=== PATIENT | female | born 1985 | race Caucasian/White ===

== ENCOUNTER 2022-02-27 22:44 | Outpatient (CLI) | payer MEDICAID, SELFPAY | END 2022-02-27 22:45 | disposition home or self-care (01) | LOC: AMB 03-10 14:05 | PROVIDERS: PCP Family Medicine; Visit Provider Family Medicine | DX: N89.8 Other specified noninflammatory disorders of vagina (principal) | CPT/HCPCS: A0425; A0429 ==

== ENCOUNTER 2022-02-27 22:58 | Emergency (ER) | payer MEDICAID, SELFPAY ==
[2022-02-27 23:30] VITALS: BP 147/90; PULSE 87; RESP 18; TEMP 36.6; O2SAT 99; BMI 46.0
[2022-02-28 00:09] VITALS: BP 121/80; TEMP 36.9
--- NOTE | 2022-02-28 00:34 | ED_ITS ---
HPI - General Adult General Chief complaint: Skin/Abscess/Foreign Body Stated complaint: Vaginal Pain Time Seen by Provider: 02/28/22 00:16 Source: patient Mode of arrival: ambulatory Limitations: no limitations History of Present Illness HPI narrative: 37-year-old female presents with a 2 day history of a right labial genital pain. She does have a history of hidradenitis, states that this pain is not similar. She reports that she relocated to our area from [place], does not yet have a primary care provider. Has not tried any home treatment. She had previously been treated for her hidradenitis with Humira, had we stop due to liver abnormality she reports. She denies any prior history of STDs, no new sexual partners. Denies a history of genital herpes. She is concerned that the lesion could be infected. Of note, she called the ambulance for this. When I question why this was done, she states that she could find the emergency department, her GPS was taking her to the wrong location so she does called 911. She has not tried taking any Tylenol, ibuprofen, doing any warm compresses or any other similar treatment to help with her symptoms. She denies any unusual vaginal discharge, no urinary symptoms, no chance of . Past medical history is notable for the hidradenitis. Denies any recent surgical history. No long-term medications, no allergies. Socially no new sexual partners Related Data Previous Rx's Medication Instructions Recorded amoxicillin 875 mg-potassium 1 tab PO BID #19 tabs 02/28/22 clavulanate 125 mg tablet ibuprofen 600 mg tablet 600 mg PO Q6H PRN pain #30 tabs 02/28/22 Allergies Allergy/AdvReac Type Severity Reaction Status Date / Time Sulfa (Sulfonamide Allergy Mild Hives Verified 02/27/22 23:35 Antibiotics) PFSH PFSH Medical History Anxiety Cervical dysplasia Chronic ankle pain Depression Developmental disorder Herpes genitalis Hypertriglyceridemia Insomnia Obesity (BMI 30-39.9) PTSD (post-traumatic stress disorder) Subclinical hypothyroidism Surgical History H/O tubal ligation Hx of cholecystectomy Exam Const: Vital Signs, click to edit/add: Vital Signs - 24 hr 02/27/22 23:30 02/28/22 00:09 Temperature 97.8 F 98.4 F Pulse Rate [Right Pulse Oximeter] 87 Respiratory Rate 18 Blood Pressure [Le ft Upper Arm] 147/90 H 121/80 Pulse Oximetry 99 Oxygen Delivery Me thod Room Air Documenting provider has reviewed patient's vital signs: yes Common normals: no apparent distress Other: Detecting that she may have some developmental delay. Insight seems fair at best HENMT: Common normals: normocephalic Head and scalp: normocephalic Mouth: oral and palatal mucosa normal Throat: posterior oropharynx normal Resp: Common normals: normal respiratory effort Effort & inspection: able to speak in complete sentences GI: Other: Obese but soft, nontender : Other: External genitalia with scarring consistent with hidradenitis. Area of mild swelling, tenderness and redness at the right superior labia majora no abrasion, nonfluctuant, subcutaneous. Area in question is about 2 x 3 cm. Normal vaginal opening, urethral meatus and clitoris. Neuro: Speech: speech normal Motor exam: no tremor noted and no movement abnormalities noted Psych: Insight: fair Judgement: fair Skin: Common normals: no rashes or lesions noted General skin exam: no rash es or lesions noted Course Vital Signs Vital signs: Initial Vital Signs Temperature 97.8 F 02/27/22 23:30 Temperature Source Temporal Artery Scan 02/27/22 23:30 Pulse Rate 87 02/27/22 23:30 Respiratory Rate 18 02/27/22 23:30 Blood Pressure 147/90 H 02/27/22 23:30 Blood Pressure Mean 109 02/27/22 23:30 Blood Pressure Position Semi-Fowlers 02/27/22 23:30 Pulse Oximetry 99 02/27/22 23:30 Oxygen Delivery Method 02/27/22 23:30 Vital Signs Temperature 97.8 F 02/27/22 23:30 Pulse Rate 87 02/27/22 23:30 Respiratory Rate 18 02/27/22 23:30 Blood Pressure 147/90 H 02/27/22 23:30 Pulse Oximetry 99 02/27/22 23:30 Oxygen Delivery Method 02/27/22 23:30 Temperature 98.4 F 02/28/22 00:09 Pulse Rate 87 02/27/22 23:30 Respiratory Rate 18 02/27/22 23:30 Blood Pressure 121/80 02/28/22 00:09 Pulse Oximetry 99 02/27/22 23:30 Oxygen Delivery Method 02/27/22 23:30 Medical Decision Making MDM Narrative Medical decision making narrative: Patient's request stronger pain medicine because she wants to go to the mall with her mother tomorrow and is worried about the pain. I let her know that if the pain is too severe maybe she should skip shopping. She says that the pain is only really bothersome when she wipes. I let her know that since she has not given Tylenol or ibuprofen adequate trial, we should start there. Counseling on anti biotic management, will need to follow-up with gynecology to ensure resolution. All questions answered, she verbalizes understanding and agreement. First dose of Augmentin and ibuprofen will be given here in the ED. Subsequent doses sent to her pharmacy Discharge Plan Discharge Clinical Impression: Labial pain Patient Disposition: Home, Self-Care Condition: Stable Additional Instructions: You have an inflamed gland on your right labia. It does seem mildly infected. This is different than your typical hidradenitis. We have started on antibiotic for this, he will need to continue on this for the next 10 days. It is okay to take Imodium if it gives you loose stools. For pain, take ibuprofen 600 mg every 6 hours. It is still bothersome, take Tylenol 1000 mg every 6 hours. Soak in a warm bath twice daily for 20 minutes to help promote drainage. There are no signs of a sexually transmitted disease. I have placed a referral to Gynecology. They will call you to schedule this. I would like you evaluated later this week to ensure that things are improving. Unlikely to need incision and drainage. Activity Level: Activity as Tolerated Discharge Diet: Regular Prescriptions: New amoxicillin-pot clavulanate 875-125 mg tablet 1 tab PO BID Qty: 19 0RF ibuprofen 600 mg tablet 600 mg PO Q6H PRN (Reason: pain) Qty: 30 0RF Follow Up/Referrals: Irene Collins MD [Staff Physician] - 2 Days (1st available gynecology provider, recheck labial inflamed cyst) Stand Alone Forms: [facility] Info Instructions
[2022-02-28] MEDS: IBUPROFEN 200 MG TABLET 600 MG PO (00:42)
[2022-02-28] MEDS: AMOXICILLIN/CLAVULANATE 875 mg/125 mg TABLET PO (00:43)
--- OUTSIDE RECORDS SUMMARY | 2022-02-28 00:52 | XMS_ITS | Clinical Summary ---
:1985 Author Organization [employer] [place] [address] Care Team Providers Name Role Phone Emile Myers MD Unavailable [phone] Angela Garrett MD Primary Care Provider Allergies Active Allergy Reactions Severity Noted Date Comments Sulfa (Sulfonamide Antibiotics) Hives 2 Medications Medication Sig Dispensed Refills Start Date End Date Status clindamycin 1% Apply 60 g 1 02/06/2015 Disc ontinued (CLEOCIN-T) 1 % topically to 2 ( *Patient states gelIndications: affected no l onger Hidradenitis area(s) 2 taking/ Not on suppurativa times daily. sendi facility list) chlorhexidine Use daily with 236 mL 1 02/07/2015 Discontinued (HIBICLENS) 4 % showering as 2 ( *Patient states external directed. no longer liquidIndications: t aking/Not on Hidradenitis sending facility suppurativa list) naproxen 0 12/15/2014 Discontin ued (NAPROSYN) 500 mg 2 (* Patient states tablet no longer taking/Not on sending fa cility list) escitalopram Take 1/2 pill 30 tablet 2 02/20/2015 Di scontinued oxalate (LEXAPRO) a day for 1 2 (*Patient states 20 mg week and then no michael amy tabletIndications: increase to 1 taking/Not on Depression pill a day. sending facility list) traZODone Take 1 tablet 30 tablet 1 02/20/2015 Disco ntinued (DESYREL) 50 mg by mouth at 2 (* Patient states tabletIndications: bedtime. n o longer Depression taking/No t on sending fa cility list) Foot Care Products As directed. 2 Each 0 07/03/2015 02 Discontinued padsIndications: 2 (*P atient states Plantar fasciitis no longer of left foot taking/ Not on sending fa cility list) Active Problems Problem Noted Date Subclinical hypothyroidism 03/08/2021 Depression 02/20/2015 Hidradenitis suppurativa 02/10/2015 Obesity (BMI 30-39.9) 02/10/2015 Anxiety 05/25/2013 Insomnia 09/18/2012 History of cervical dysplasia 09/18/2012 Developmental disorder 09/18/2012 Overview: Formatting of this note might be differe nt from the original. 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 Herpes genitalis 04/12/2012 Hypertriglyceridemia 01/03/2012 Encounters Date Type Specialty Care Team Description 02/21/2022 Office Visit Angela Garrett Establish Rambo Larson MD 02/21/2022 Travel 02/10/2022 Telephone Antoine Garcia Results MD Shad 02/08/2022 Ancillary Procedure 02/08/2022 Travel 02/01/2022 Ancillary Procedure 02/01/2022 Office Visit Antoine Garcia Musculoskeleta l Problem MD Shad (Left ankle peter n ) 02/01/2022 Travel 12/24/2021 Emergency [place], Chronic pain of left ankle ALEXANDRA Sandy (Primary Dx) 12/24/2021 Travel 12/20/2021 Travel 12/20/2021 Nurse Triage Pcp, No Ankle Injury from Last 3 Months Immunizations Name Administration Dates Next Due COVID-19 vaccine (IGIGI 02/21/2022 30mcg/0.3mL) 12YO+ BIVALENT BOOSTER PF, MDV DT (Age < 7 years) 10/20/2008 Hepatitis B (Adult) 11/21/2000, 03/07/2000, 01/11/2000 Hepatitis B, Unspecified 11/21/2000, 03/07/2000, 01/11/2000 Human Papilloma Virus Vaccine 12/20/2011, 05/25/2011, 2010 Influenza A (H1N1), Inactivated 03/16/2009 Influenza A (H1N1), Inactivated (Age 1203/16/2009 >=3 Years) Influenza Virus, Unspecified 01/03/2014, 04/15/2013, 012, 02/16/2010, 01/05/2009, 01/09/2008 Influenza, IIV3 (Age >=3 years) 12/20/2011 Influenza, IIV4 02/21/2022, 01/18/2021 MMR 11/21/2000, 09/15/1988 Tdap 01/18/2021 Family History Medical History Relation Name Comments No Known Problems Father Heart Disease Maternal Grandfather Hypertension Maternal Grandfather Diabetes Maternal Uncle Hypertension Mother Migraines Mother Migraines Sister Relation Name Status Comments Father Maternal Grandfather Maternal Uncle Alive Mother Sister Social History Tobacco Use Types Packs/Day Years Used Date Never Smoker Smokeless Tobacco: Never Used Tobacco Cessation: Counseling Given: Yes Alcohol Use Standard Drinks/Week Comments Yes 0 (1 standard drink = 0.6 oz pure alcoho l) rarely Alcohol Habits Answer Date Recorded How often do you have a drink containing alcohol? Not asked How many drinks containing alcohol do you have on a typical Not asked day when you are drinking? How often do you have six or more drinks on one occasion? No t asked Comment: rarely 02/21/2022 Sex Assigned at Date Recorded Not on file COVID-19 Exposure Response Date Recorded In the last 10 days, have you been in contact with No / Unsu re 02/21/2022 1:56 PM RUBBER OFF someone who was confirmed or suspected to have Coronavirus/COVID-19? Obstetrics History Last Filed Vital Signs Vital Sign Reading Time Taken Comments Blood Pressure 119/82 02/21/2022 2:10 PM RUBBER OFF Pulse 95 02/21/2022 2:10 PM RUBBER OFF Temperature 36.8 ??C (98.3 ??F) 12/24/2021 11:25 AM CDT Respiratory Rate 20 12/24/2021 11:25 AM CDT Oxygen Saturation 97% 02/21/2022 2:10 PM RUBBER OFF Inhaled Oxygen Concentration - - Weight 106.1 kg (234 lb) 02/21/2022 2:10 PM RUBBER OFF Height 150.2 cm (4' 11.13) 02/21/2022 2:10 PM RUBBER OFF Body Mass Index 47.05 02/21/2022 2:10 PM RUBBER OFF Plan of Treatment Upcoming Encounters Date Type Specialty Care Team Description 03/15/2022 [place] [id number] [address] [place], [place] [address] (Wo rk) Health Maintenance Due Date Last Done Comments Hepatitis C screening for 2005 age 18-79 BMI (ht and wt on same 02/21/2023 02/21/2022, 07/03/2015, day) for age 18+ 06/01/2015 Depression screening for 02/21/2023 02/21/2022 age 12+ Pap test for age 21-65 03/08/2026 03/08/2021 (Verified in Care Everywhere or Patient Record) Tetanus booster 01/18/2031 01/18/2021 HIV for age 15-65 Addressed 04/10/2012 (Verified in [place] with the Care Everywhere or intention of not Patient Record) completing the t opic Tdap Completed 01/18/2021 COVID-19 vaccine series Completed 02/21/2022, 03/08/2021, 08/14/2020, Additional history exists Influenza for age 9-49 Completed 02/21/2022, 01/18/2021, 01/03/2014, Additional history exists Procedures Procedure Name Priority Date/Time Associated Diagnosis Comme nts MR ANKLE LEFT WO Routine 02/08/2022 4:37 PM Chronic pain of le ft Results for this RUBBER OFF ankle procedure are i n the results section. XR TIBIA AND FIBULA Routine 02/01/2022 3:19 PM Pain in left sh in Results for this 2 VIEWS LEFT RUBBER OFF procedure are i n the results section. XR ANKLE 3 VIEWS STAT 12/24/2021 1:29 PM Resul ts for this LEFT CDT procedure are i n the results section. XR ANKLE 3 VIEWS STAT 12/24/2021 12:34 PM Resu lts for this RIGHT CDT procedure are i n the results section. from Last 3 Months Results MR ANKLE LEFT WO (02/08/2022 4:37 PM RUBBER OFF) Anatomical Region Laterality Modality ANKLE L Magnetic Resonance Specimen (Source) Anatomical Collection Method Collection Time Re ceived Time Location / / Volume Laterality 02/09/2022 12:42 PM RUBBER OFF Impressions 02/09/2022 12:42 PM RUBBER OFF 1. Chronic thickening of the anterior talofibular and calcaneofibular ligaments compatible with scarring and sequelae of remote ligament sprains. 2. Lateral calcaneal bone marrow edema m ay relate to reactive marrow edema or stress change. There is no calcaneal fracture. 3. Mild edema within the sinus tarsi wit h partial effacement of sinus tarsi fat at its lateral margin. 4. Subcutaneous edema. Dictated by Sadi Dorantes MD @ 2021 12:42:48 PM (Electronically Signed) Narrative 02/09/2022 12:42 PM RUBBER OFF For Patients: ??As a result of the Cures Act, medical imaging exams and procedure report s are released immediately into your [facility] medical record. ??You may view this report before your referring provider. ??If you have questions, please contact your health care provider. HISTORY: Left ankle pain and swelling. TECHNIQUE: Noncontrast MRI of the left ankle. COMPARISON: Radiographs 12/24/2021. FINDINGS: Tendons: The posteromedial flexor tendon s are intact. The anterior extensor tendons are intact. The peroneal tendons are intact. Distal Achilles tendon is intact. - Ligaments: The anterior and posterior sy ndesmotic ligaments are intact. There is chronic thickening of the anterior talofibular ligament compatible with ligament scarring. Mild thickening of the calcane ofibular ligament also indicating ligame nt scarring. Findings compatible sequelae of remote sprain. Posterior talofibular ligament intact. Calcaneonavicular spring ligament intact. Lisfranc ligament int act. Mild edema within the sinus tarsi a s seen on sagittal STIR image #13 of series 8 with partial effacement of the fat more laterally. - Joint spaces: The ankle and subtalar art iculations are maintained. Talonavicular and calcaneocuboid articulations are maintained. Joint spaces within the midfoot and at the midfoot-forefoot junction are maintained. - Bones and soft tissues: There is bone ma rrow edema present within the lateral calcaneus which may be reactive or relate to stress change. There is no calcaneal fracture. Subcutaneous edema is present. Procedure Note Sadi Dorantes MD - 2 For Patients: As a result of the ntury Cures Act, medical imaging exams and procedure reports are released immediately into your electronic medical record. You may view this report before your referring provider. If you have questions, please contact yo health care provider. HISTORY: Left ankle pain and swelling. TECHNIQUE: Noncontrast MRI of the left ankle. COMPARISON: Radiographs 12/24/2021. FINDINGS: Tendons: The posteromedial flexor tendon s are intact. The anterior extensor tendons are intact. The peroneal tendons are intact. Distal Achilles tendon is intact. - Ligaments: The anterior and posterior sy ndesmotic ligaments are intact. There is chronic thickening of the anterior talofibular ligament compatible with ligament scarring. Mild thickening of the calcaneofibular ligament also indicating ligament scarri ng. Findings compatible sequelae of remote sprain. Posterior talofibular ligament intact. Calcaneonavicular spring ligament intact. Lisfranc ligament intact. Mild edema within the sinus tarsi as seen on sagittal STIR chelsy ge #13 of series 8 with partial effacement of the fat more laterally. - Joint spaces: The ankle and subtalar art iculations are maintained. Talonavicular and calcaneocuboid articulations are maintained. Joint spaces within the midfoot and at the midfoot-forefoot junction are maintained. - Bones and soft tissues: There is bone ma rrow edema present within the lateral calcaneus which may be reactive or relate to stress change. There is no calcaneal fracture. Subcutaneous edema is present. IMPRESSION: 1. Chronic thickening of the anterior ta lofibular and calcaneofibular ligaments compatible with scarring and sequelae of remote ligament sprains. 2. Lateral calcaneal bone marrow edema m ay relate to reactive marrow edema or stress change. There is no calcaneal fracture. 3. Mild edema within the sinus tarsi wit h partial effacement of sinus tarsi fat at its lateral margin. 4. Subcutaneous edema. Dictated by Sadi Dorantes MD @ 2021 12:42:48 PM (Electronically Signed) Antione Garcia MD MR XR TIBIA AND FIBULA 2 VIEWS LEFT (02/01/2022 3:19 PM RUBBER OFF) Anatomical Region Laterality Modality Tibia Computed Radiography Specimen (Source) Anatomical Collection Method Collection Time Re ceived Time Location / / Volume Laterality 02/01/2022 3:26 PM RUBBER OFF Impressions 02/01/2022 3:26 PM RUBBER OFF Negative left tibia and fibula. Dictated by Chema Almonte MD @ Jan ??8 2 022 ??3:26PM (Electronically Signed) ?? Narrative 02/01/2022 3:26 PM RUBBER OFF For Patients: ??As a result of the Cures Act, medical imaging exams and procedure report s are released immediately into your [facility] medical record. ??You may view this report before your referring provider. ??If you have questions, please contact your health care provider. INDICATION: One year history of left ankle and left lower extremity pain without trauma. TECHNIQUE: Two views of the left tibia and fibula. FINDINGS: Negative. No fracture, dislocation, eros ion, or intrinsic skeletal lesion. No radiodense foreign bodies identified. Procedure Note Chema Almonte MD - 02/01/2022Formatti ng of this note might be different from the original. For Patients: As a result of the Cures Act, medical imaging exams and procedure reports are released immediately into your electronic medical record. You may view this report before your referring provider. If you have questions, please contact [facility] health care provider. INDICATION: One year history of left ankle and left lower extremity pain without trauma. TECHNIQUE: Two views of the left tibia and fibula. FINDINGS: Negative. No fracture, dislocation, eros ion, or intrinsic skeletal lesion. No radiodense foreign bodies identified. IMPRESSION: Negative left tibia and fibula. Dictated by Chema Almonte MD @ Feb 01 202 2 3:26PM (Electronically Signed) Antoine Garcia MD GENERAL IMAGING XR ANKLE 3 VIEWS LEFT (12/24/2021 1:29 PM CDT) Anatomical Region Laterality Modality ANKLES, ANKLE L Computed Radiography Specimen (Source) Anatomical Collection Method Collection Time Re ceived Time Location / / Volume Laterality 12/24/2021 1:29 PM CDT Impressions 12/24/2021 1:30 PM CDT No fracture or dislocation. Ankle mortis e intact. Tiny posterior calcaneal spurring. Narrative 12/24/2021 1:30 PM CDT For Patients: As a result of the Cures Act, medical imaging exams and procedure reports are released immediately into your [facility] medical record. You may view this report before your referring provider. If you have questions, please contact your health care provider. EXAM: XR ANKLE 3 VIEWS LEFT LOCATION: [facility] DATE/TIME: 12/24/2021 1:29 PM INDICATION: ANKLE PAIN/PROBLEM COMPARISON: None. Procedure Note Darek Banks MD - 12/24/2021Formattin g of this note might be different from the original. For Patients: As a result of the Cures Act, medical imaging exams and procedure reports are released immediately into your electronic medical record. You may view this report before your referring provider. If you have questions, please contact yo health care provider. EXAM: XR ANKLE 3 VIEWS LEFT LOCATION: [facility] DATE/TIME: 12/24/2021 1:29 PM INDICATION: ANKLE PAIN/PROBLEM COMPARISON: None. IMPRESSION: No fracture or dislocation. Ankle mortis e intact. Tiny posterior calcaneal spurring. Shelly MORRIS GENERAL IMAGING XR ANKLE 3 VIEWS RIGHT (12/24/2021 12:34 PM CDT) Anatomical Region Laterality Modality ANKLES, ANKLE R Computed Radiography Specimen (Source) Anatomical Collection Method Collection Time Re ceived Time Location / / Volume Laterality 12/24/2021 12:34 PM CDT Impressions 12/24/2021 12:37 PM CDT Normal joint spaces and alignment. No fr acture. Narrative 12/24/2021 12:37 PM CDT For Patients: As a result of the Cures Act, medical imaging exams and procedure reports are released immediately into your [facility] medical record. You may view this report before your referring provider. If you have questions, please contact your health care provider. EXAM: XR ANKLE 3 VIEWS RIGHT LOCATION: [facility] DATE/TIME: 12/24/2021 12:34 PM INDICATION: Right ankle pain. COMPARISON: None. Procedure Note Juan Hathaway MD - 12/24/2021 For Patients: As a result of the ntury Cures Act, medical imaging exams and procedure reports are released immediately into your electronic medical record. You may view this report before your referring provider. If you have questions, please contact yo health care provider. EXAM: XR ANKLE 3 VIEWS RIGHT LOCATION: [facility] DATE/TIME: 12/24/2021 12:34 PM INDICATION: Right ankle pain. COMPARISON: None. IMPRESSION: Normal joint spaces and alignment. No fr acture. Shelly MORRIS GENERAL IMAG[facility] from Last 3 Months Insurance Payer Benefit Plan / Subscriber ID Effective Dates Phone Addre ss Type Group [facility] [id number] 2014-Presen [address] [place] [address] [facility] [id number] 2020-Presen [address] [facility] [address] [facility] [id number] 2020-Presen [address] [facility] [address] [place] [id number] 2011-Present [address] [address] [place] [address] Guarantor Name Account Type Relation to Date of Phone Billing Address Patient Georgiana Ricketts Personal/Family Self 1985 [address] [facility] [address] [place] [id number] Georgiana Ricketts Personal/Family Self 1985 [address] [place] [id number] Georgiana Ricketts Personal/Family Self [address] ([address]) [address] [address] Care 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
== END 2022-02-28 00:56 | disposition home or self-care (01) ==
LOC: ED 02-28 00:50
PROVIDERS: Emergency Provider Family Medicine; PCP Family Medicine
DX: N94.89 Other specified conditions associated with female genital organs and menstrual cycle (principal)
CPT/HCPCS: 99282; 99283; A9270

== ENCOUNTER 2022-12-28 20:47 | Emergency (ER) | payer MEDICAID, SELFPAY ==
[2022-12-28 20:53] VITALS: BP 129/84; PULSE 72; RESP 16; TEMP 36.2; O2SAT 98; BMI 41.8
--- NOTE | 2022-12-28 21:10 | ED.SKABFB ---
HPI - Skin/Abscess/Foreign Bdy General Time Seen by Provider: 21:10 Date Seen: 12/28/22 Chief complaint: Skin/Abscess/Foreign Body Stated complaint: Abcess on L boob, needs to be drained Time Seen by Provider: 12/28/22 20:57 Source: patient, RN notes reviewed and old records reviewed Mode of arrival: ambulatory Limitations: no limitations History of Present Illness HPI narrative: 37-year-old female who presents with pain and swelling of the left breast. Patient has a history of hidradenitis in gets frequent abscesses associated with this. Most recent 1 started about a week ago. No fever chills, denies any other symptoms. Related Data Home Medications Medication Instructions Recorded Confirmed levothyroxine 50 mcg tablet 50 mcg PO DAILY 12/28/22 12/28/22 metformin 500 mg tablet,extended 500 mg PO DAILY 12/28/22 12/28/22 release 24 hr Previous Rx's Medication Instructions Recorded clindamycin HCl 300 mg capsule 300 mg PO Q8H #15 caps 12/28/22 Allergies Allergy/AdvReac Type Severity Reaction Status Date / Time Sulfa (Sulfonamide Allergy Mild Hives Verified 02/27/22 23:35 Antibiotics) PFSH PFSH Medical History Anxiety Cervical dysplasia Chronic ankle pain Depression Developmental disorder Herpes genitalis Hypertriglyceridemia Insomnia Obesity (BMI 30-39.9) PTSD (post-traumatic stress disorder) Subclinical hypothyroidism Surgical History H/O tubal ligation Hx of cholecystectomy Social History Smoking Status: Never smoker How often do you have a drink containing alcohol: never AUDIT-C Alcohol total score: 0 Exam Narrative: Exam Narrative: General: well nourished , NAD Head: Atraumatic and normocephalic ENT: External ears and external nose are normal Eyes: Conjunctiva clear, pupils are equal reactive, external ocular motions are intact Neck: Full spontaneous range of motion of the neck Lungs: No respiratory distress Musculoskeletal: No tenderness or deformity Neurologic: No gross focal neurologic deficits Skin: Numerous scars and pets of the breasts bilaterally. On left breast inferiorly there is a 1 cm area tenderness in induration with no erythema Psych: Mood and affect are appropriate Const: Vital Signs, click to edit/add: Vital Signs - 24 hr 12/28/22 20:53 Temperature 97.2 F L Pulse Rate [Pulse Oximeter] 72 Respiratory Rate 16 Blood Pressure [Ri ght Upper Arm] 129/84 Pulse Oximetry 98 Oxygen Delivery Me thod Room Air Course Course ED Course: Patient seen examined, prior records reviewed. Patient presents today with hidradenitis of the left breast. The affected area is tender but not inflamed or indurated. Based on recent recommendations, incision and drainage is not recommended. Patient will be referred to General surgery and started on clindamycin. Vital Signs Vital signs: Initial Vital Signs Temperature 97.2 F L 12/28/22 20:53 Temperature Source Temporal Artery Scan 12/28/22 20:53 Pulse Rate 72 12/28/22 20:53 Pulse Rhythm Regular 12/28/22 20:53 Respiratory Rate 16 12/28/22 20:53 Blood Pressure 129/84 12/28/22 20:53 Blood Pressure Mean 99 12/28/22 20:53 Blood Pressure Position Sitting 12/28/22 20:53 Pulse Oximetry 98 12/28/22 20:53 Oxygen Delivery Method Room Air 12/28/22 20:53 Vital Signs Temperature 97.2 F L 12/28/22 20:53 Pulse Rate 72 12/28/22 20:53 Respiratory Rate 16 12/28/22 20:53 Blood Pressure 129/84 12/28/22 20:53 Pulse Oximetry 98 12/28/22 20:53 Oxygen Delivery Method Room Air 12/28/22 20:53 Temperature 97.2 F L 12/28/22 20:53 Pulse Rate 72 12/28/22 20:53 Respiratory Rate 16 12/28/22 20:53 Blood Pressure 129/84 12/28/22 20:53 Pulse Oximetry 98 12/28/22 20:53 Oxygen Delivery Method Room Air 12/28/22 20:53 Discharge Plan Discharge Clinical Impression: Hidradenitis suppurativa Patient Disposition: Home w/ Parent or Adult Condition: Stable Instructions: Hidradenitis Suppurativa (ED) Additional Instructions: Apply warm compresses to the area. Take antibiotics as prescribed. Follow-up with the general surgery clinic for further evaluation and treatment [phone] and consider follow-up with dermatology as well ([facility] [place] [phone]). Activity Level: No Restrictions Discharge Diet: Regular Prescriptions: New clindamycin HCl 300 mg capsule 300 mg PO Q8H Qty: 15 0RF No Action levothyroxine 50 mcg tablet 50 mcg PO DAILY metformin 500 mg tablet extended release 24 hr 500 mg PO DAILY Follow Up/Referrals: Angela Garrett MD [Primary Care Provider] - Stand Alone Forms: [employer] Info Instructions
[2022-12-28] MEDS: CLINDAMYCIN 150 MG CAPSULE 300 MG PO (21:30)
[2022-12-28 21:53] VITALS: BP 118/71; PULSE 75; RESP 16; TEMP 36.7; O2SAT 98
[2022-12-28 21:55] VITALS: BP 118/71; PULSE 75; RESP 16; TEMP 36.7
== END 2022-12-28 21:56 | disposition home or self-care (01) ==
LOC: ED 21:34
PROVIDERS: Emergency Provider Family Medicine; PCP Family Medicine
DX: L73.2 Hidradenitis suppurativa (principal)
CPT/HCPCS: 99283; 99284; A9270

== ENCOUNTER 2023-06-29 01:03 | Outpatient (CLI) | payer MEDICAID, SELFPAY ==
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
--- OUTSIDE RECORDS SUMMARY | 2023-07-05 13:05 | XMS_ITS | Referral Summary ---
Author Name Unknown Organization [facility] Address [address] [place] [address] Care Team Providers Care Avionics Supervisor Name Role Phone Cyndee Burton Nola STEPHENS, C.N.P., D.N.P. Primary Ca re Provider Source Comments Patient records contain information from all sites at [facility]. For routine questions regarding patient records, call [phone] during business hours, M-F 8:00 AM - 5:00 PM Central Time. Record requests for emergency care only can be directed to [phone] at any time.[facility] Encounters Date Type Department Care Team Description 05/09/2023 Clinical Communication Department of Medical Genetics in [place], [place] [address] [place] [phone] Ángel Roman Neuro Variantyx WGS : AC 05/09/2023 11:00 AM MANAGER SPA Comprehensive Visit Department of Neurology in [place], [place] [address] [place] [phone] Chuyita Wood M.D. 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 Roxanne Baptiste O.Jovanni., MOT Imbalance Non Orthopedic (Primary Dx); Ataxia Cerebellar (HCC) 05/09/2023 2:00 PM MANAGER SPA Comprehensive Visit Department of Physical Medicine and Rehabilitation in [place], [place] [address] [place] [phone] Starr Maldonado M.D. Viviana Lee P.T., D.P.T., A.T.C. Ataxia (Primary Dx); Ataxia Cerebellar (HCC) 05/09/2023 1:00 PM MANAGER SPA Comprehensive Visit Department of Physical Medicine and Rehabilitation in [place], [place] [address] [place] [address] Chay Soto M.D., M.P.H. Ataxia Cerebellar (HCC) 05/02/2023 Documentation Department of Neurology in [place], [place] [address] [place] [address] Starr Maldonado M.D. 04/24/2023 9:30 AM MANAGER SPA - 04/24/2023 11:59 PM MANAGER SPA Hospital Encounter Department of Laboratory Medicine and Pathology, [facility], in [place], [place] [address] [place] [address] Starr Maldonado M.D. Ataxia Cerebellar (HCC) Discharge Disposition: Home or Self Care 04/18/2023 8:45 AM MANAGER SPA Clinical Support Department of Medical Genetics in [place], [place] [address] [place] [address] Starr Maldonado M.D. Winter, Tori R Ataxia Cerebellar (HCC) 04/05/2023 8:00 AM MANAGER SPA Comprehensive Visit Department of Neurology in [place], [place] [address] [place] [phone] Starr Maldonado M.D. Ataxia Cerebellar (HCC) (Primary Dx) from Last 3 Months Allergies Active Allergy Reactions Criticality Noted Date Comments Adhesive Itching 04/03/2023 Redness Sulfa (Sulfonamide Antibiotics) Hives (Reselect Reaction) 08/06/2008 Medications Medication Sig Dispensed Refills Start Date End Date Status multivitamin (multivitamin) tablet Take 1 tablet by mouth daily. 0 Active levothyroxine (SYNTHROID, LEVOTHROID) 50 mcg tablet Take 50 mcg by mouth every morning before breakfast. 0 09/12/2022 Active HAIR, SKIN AND NAILS, BIOTIN, ORAL Take 1 tablet by mouth daily. 0 Active Active Problems Problem Noted Date Diagnosed Date Hypothyroidism Subclinical 03/08/2021 Body Mass Index 45.0 To 49.9 Adult 03/08/2021 Anxiety 05/25/2013 Cervical Dysplasia Personal History 09/18/2012 Other Lack Of Expected Angela l Physiological Development In Childhood 09/18/2012 Overview: date unknown [facility] Net Developer: Blossom Leone Insomnia 09/18/2012 Dysthymia 08/31/2012 Overview: Dysthymic Disorder Herpes Genitalis 04/12/2012 Hypertriglyceridemia 01/03/2012 Hidradenitis Suppurativa 08/04/2010 Overview: date unknown Immunizations Name Administration Dates Next Due 4vHPV (discontinued) 12/20/2011,05/25/2011,03/08 DT, Pediatric 10/20/2008 H1N1 All Forms 03/16/2009 HepB Adult 11/21/2000,03/07/2000,01/11/2000 HepB, Unspecified 11/21/2000,03/07/2000,01/11/20 00 Influenza, Unspecified 01/03/2014,2013,12/20/2011,2009,01/05/2009,01/09/2008 MMR 11/21/2000,09/15/1988 SARS-COV-2 (COVID-19) - PFIZ ER (Discontinued)(12 years or older) 03/08/2021 Tdap 01/18/2021 influenza vaccine quad (FLUZONE/FLUARIX) (6 months and older)(PF) 01/18/2021 Social History Tobacco Use Types Packs/Day Years Used Date Smoking Tobacco: Never Passive Smoke Exposure: Current Smokeless Tobacco: Never Passive Exposure Comments:Cu rrent and past exposure. Alcohol Use Standard Drinks/Week Comments Yes 0 (1 standard drink = 0.6 oz pur e alcohol) 1-2x week [facility] Utilities Answer Date Recorded In the past 12 months has th e electric, gas, oil, or water company threatened to shut off services in your [...] your living situation today? I have a [facility] place to live 05/04/2023 Sex and Gender Information Value Date Recorded Sex Assigned at Female 05/04/2023 11:55 PM MANAGER SPA Gender Identity Female 05/04/2023 11:55 PM MANAGER SPA Sexual Orientation Straight 05/04/2023 11 :55 PM MANAGER SPA Last Filed Vital Signs Vital Sign Reading Time Taken Comments Blood Pressure 131/82 04/05/2023 8:08 AM MANAGER SPA Pulse 76 04/05/2023 8:08 AM MANAGER SPA Temperature 36.8 ??C (98.2 ??F) 10/10/2021 7:12 PM CD T Respiratory Rate 19 10/10/2021 9:00 PM CDT Oxygen Saturation 95% 10/10/2021 9:00 PM CDT Inhaled Oxygen Concentration - - Weight 93.2 kg (205 lb 5.7 oz) 04/05/2023 8:08 A M MANAGER SPA Height 149.7 cm (4' 10.94) 04/05/2023 8:[address] Body Mass Index 41.57 04/05/2023 8:08 AM MANAGER SPA Plan of Treatment Not on file Procedures Procedure Name Priority Date/Time Associated Diagnosis Comments MISC. [employer] Routine 04/24/2023 9:56 AM MANAGER SPA LACTATE, B/P Routine 04/24/2023 9:56 AM MANAGER SPA Ataxia Cerebellar (HCC) VITAMIN E, S Routine 04/24/2023 9:56 AM MANAGER SPA Ataxia Cerebellar (HCC) CRYOPRESERVATION FOR MOLEC STUDIES Routine 04/24/2023 9:56 AM MANAGER SPA Ataxia Cerebellar (HCC) METHYLMALONIC ACID (MMA), PAPI, S Routine 04/24/2023 9:56 AM MANAGER SPA Ataxia Cerebellar (HCC) FRATAXIN, QUANT, WB Routine 04/24/2023 9 :56 AM MANAGER SPA Ataxia Cerebellar (HCC) from Last 3 Months Results * Friedreich Ataxia, Frataxin, Quantitative, Whole Blood (04/24/2023 9:56 AM MANAGER SPA) Frataxin 28 >=21 ng/mL 04/27/2023 3:44 PM MANAGER SPA DTL Reason for referral Not provided 04/27/2023 3:44 PM MANAGER SPA DTL Interpretation *NEGATIVE* In this sample, the level of frataxin is normal. This result indicates that this individual is NOT affected with Friedreich Ataxia. 04/27/2023 3:44 PM MANAGER SPA DTL Comment: ----ADDITIONAL INFORMATION---- Immunoassay This test was developed and its performance characteristics determined by [facility] in a manner consistent with CLIA requirements. This test has not been cleared or approved by the U.S. Food and Drug Administration. Blood (Blood, Venous) 04/24/2023 9:56 AM MANAGER SPA 04/24/2023 10:34 AM MANAGER SPA Starr Maldonado M.D. LAB GENETIC TESTIN G [facility] [address] [place] [address], [facility] DTL 200 [facility] [address] [place] [address] * Cryopreservation for Molecular Genetic Studies (04/24/2023 9:56 AM MANAGER SPA) Comment A DNA specimen has been stored for future genomic studies. This specimen has been stored at the request of the ordering physician for anticipated future testing. In some instances, a portion of the specimen may remain available (by consent) for use by the individual and/or family. This is not a DNA banking service. If chcf, guaranteed specimen storage is required, DNA banking should be considered. The Genomic Extraction Core extracted DNA. DNA Volume (microliters): ??500+ Please review the following table to determine the possible number of tests that can be added for send out testing. DNA (ul) ? Possible Send Outs (~120 ul) <100 ? Recommend Redraw 100 ?1 250 ?2 500 ?4 04/27/2023 6:34 PM MANAGER SPA DTL Specimen WB Whole Blood 04/27/2023 6:34 PM MANAGER SPA DTL Released By NATALY GERMAIN 04/27/2023 6:34 PM MANAGER SPA DTL Blood (Blood, Peripheral Draw) 04/24/2023 9:56 AM MANAGER SPA 04/24/2023 10:58 AM MANAGER SPA Starr Maldonado M.D. LAB GENETIC TESTIN G [facility] [address] [place] [address], [facility] DTL 200 [facility] [address] [place] [address] * Methylmalonic Acid (MMA), Quantitative (04/24/2023 9:56 AM MANAGER SPA) Methylmalonic Acid, QN, S 0.20 <=0.40 nmol/mL 04/25/2023 12:35 PM MANAGER SPA [facility] Comment: ----ADDITIONAL INFORMATION---- This test was developed and its performance characteristics determined by [facility] in a manner consistent with CLIA requirements. This test has not been cleared or approved by the U.S. Food and Drug Administration. Blood (Blood, Venous) 04/24/2023 9:56 AM MANAGER SPA 04/24/2023 11:39 AM MANAGER SPA Starr Maldonado M.D. LAB BLOOD ADD-ON Performing Organization Address City/[facility] Co de Phone Number [facility] [address] [place] [address], [place] DTL 200 [facility] [address] [place] [address] * Vitamin E Level (04/24/2023 9:56 AM MANAGER SPA) A-Tocopherol, Vitamin E 12.5 5.5 - 17.0 mg/L 04/25/2023 10:59 PM MANAGER SPA [facility] Comment: ----ADDITIONAL INFORMATION---- This test was developed and its performance characteristics determined by [facility] in a manner consistent with CLIA requirements. This test has not been cleared or approved by the U.S. Food and Drug Administration. Blood (Blood, Venous) 04/24/2023 9:56 AM MANAGER SPA 04/24/2023 2:57 PM MANAGER SPA Starr Maldonado M.D. LAB BLOOD NON ADD- ON Performing Organization Address City/[facility] Co de Phone Number [facility] [place] [address] [place] [address] [facility] [address] [place] [address] [place] [address] * Lactate (04/24/2023 9:56 AM MANAGER SPA) Lactate, P 2.1 0.5 - 2.2 mmol/L 04/24/2023 12:05 PM MANAGER SPA DT Blood (Blood, Venous) 04/24/2023 9:56 AM MANAGER SPA 04/24/2023 10:36 AM MANAGER SPA Starr Maldonado M.D. LAB BLOOD NON ADD- ON [facility] [address] [place] [address], [place] DTL [facility] [address] [place] [address] from Last 3 Months Care Teams Avionics Supervisor Relationship Specialty Start Date End Date Cyndee Burton, ANGELO, C.N.P., D.N.P. [phone] [place] [phone] PCP - General Family Medicine 03/12/21
--- OUTSIDE RECORDS SUMMARY | 2023-07-05 13:05 | XMS_ITS | Encounter Summary ---
Author Name Unknown Organization [facility] Address [address] [place] [id number] Care Team Providers Care Mattress Maker Name Role Phone Josephine Cyndee Nola STEPHENS, C.N.P., D.N.P. Primary Ca re Provider Reason for Visit * Reason Onset Date Comments Pre-visit Intake 04/03/2023 Encounter Details Date Type Department Care Team (Latest Contact Info) Description 04/03/2023 3:00 PM ELECTROTYPE SERVICER Clinical Communication Virtual Review in [place], [place] [address] [place], [place] [id number] Pre-visit Intake Social History Tobacco Use Types Packs/Day Years Used Date Smoking Tobacco: Never Passive Smoke Exposure: Current Smokeless Tobacco: Never Passive Exposure Comments:Cu rrent and past exposure. Alcohol Use Standard Drinks/Week Comments Yes 0 (1 standard drink = 0.6 oz pur e alcohol) 1-2x week PHQ-2 Answer Date Recorded PHQ-2 Score 0 12/17/2020 Nutrition Answer Date Recorded Nutrition: EVOO Fat Source Unknown 10/08 Nutrition: Servings of Fruits/Vegetables per Day Not on file 10/08/2020 Dental Answer Date Recorded Dental: Regular Dentist Unknown 10/09/19 21 Sex and Gender Information Value Date Recorded Sex Assigned at Female 05/04/2023 11:55 PM ELECTROTYPE SERVICER Gender Identity Female 05/04/2023 11:55 PM ELECTROTYPE SERVICER Sexual Orientation Straight 05/04/2023 11 :55 PM ELECTROTYPE SERVICER documented as of this encounter Plan of Treatment Not on file documented as of this encounter Visit Diagnoses Not on filedocumented in this encounter Additional Health Concerns Assessment Noted Time PHQ-9 Depression Total Score: 4 02/04/20 14 10:35 AM ELECTROTYPE SERVICER documented as of this encounter Care Teams Mattress Maker Relationship Specialty Start Date End Date Cyndee Burton APRN, C.N.P., D.N.P. [address] [phone] PCP - General Family Medicine 03/12/21 documented as of this encounter
--- OUTSIDE RECORDS SUMMARY | 2023-07-05 13:05 | XMS_ITS | Encounter Summary ---
Author Name Unknown Organization [facility] Address [address] [place] [address] Care Team Providers Care Counter Top Maker Name Role Phone Cyndee Burton APRN, C.N.P., D.N.P. Primary Ca re Provider Reason for Visit * Occupational Therapy (Routine) - Closed Specialty Diagnoses / Procedures Referred By Contac t Referred To Contact Diagnoses Ataxia Cerebellar (HCC) Procedures OT Evaluate and treat Starr Maldonado M.D. [address] [place] [phone] [facility] Referral ID Status Reason Start Date Expiration Date Visits Re quested Visits Authorized [id number] Closed 04/05/2023 04/04/2024 1 1 Encounter Details Date Type Department Care Team (Latest Contact Info) Description 05/09/2023 3:00 PM PRODUCT ENGINEERING MANAGER Comprehensive Visit Department of Physical Medicine and Rehabilitation in [place], [place] [address] [place] [phone] Starr Maldonado M.D. [address] [place] [address] [phone] Roxanne Baptiste O.T., MOT [address] [place] [phone] Imbalance Non Orthopedic (Primary Dx); Ataxia Cerebellar (HCC) Social History Tobacco Use Types Packs/Day Years Used Date Smoking Tobacco: Never Passive Smoke Exposure: Current Smokeless Tobacco: Never Passive Exposure Comments:Cu rrent and past exposure. Alcohol Use Standard Drinks/Week Comments Yes 0 (1 standard drink = 0.6 oz pur e alcohol) 1-2x week [facility] Utilities Answer Date Recorded In the past [...] Date Recorded Dental: Regular Dentist Yes 05/05/19 24 Employment Answer Date Recorded Employment status Permanently disabled Housing Stability Answer Date Recorded What is your living situation today? I have a [facility] place to live 05/04/2023 Sex and Gender Information Value Date Recorded Sex Assigned at Female 05/04/2023 11:55 PM PRODUCT ENGINEERING MANAGER Gender Identity Female 05/04/2023 11:55 PM PRODUCT ENGINEERING MANAGER Sexual Orientation Straight 05/04/2023 11 :55 PM PRODUCT ENGINEERING MANAGER documented as of this encounter Consult Notes * Roxanne Baptiste O.T., MOT - 05/09/2023 3:00 PM CST Consults Occupational Therapy Outpatient Evaluation/Treatment By co-signing this note, the provider certifies the therapy being provided to this patient is reasonable and necessary for the diagnosis or treatment of this patient. SUBJECTIVE Patient's Name: Georgiana Ricketts Referring Provider: Starr Maldonado M.D. Rehab Diagnosis: 1. Imbalance Non Orthopedic 2. Ataxia Cerebellar (HCC) Reason for Referral: Occupational therapy evaluation and treatment- Neuro Payor: [facility] / Plan: [facility] CONNECT / Product Type: Medicaid HMO / OT Next Certification Date: 08/07/23 PERTINENT MEDICAL / SURGICAL HISTORY: Patient Active Problem List Diagnosis Dysthymia Cervical Dysplasia Personal History Other Lack Of Expected Normal Physiological Development In Childhood Hidradenitis Suppurativa Hypertriglyceridemia Insomnia Herpes Genitalis Anxiety Hypothyroidism Subclinical Body Mass Index 45.0 To 49.9 Adult (HCC) Past Surgical History: Procedure Laterality Date CHOLECYSTECTOMY 2018 EPISIOTOMY N/A 09/08/2008 Episiotomy TUBAL LIGATION 2017 Georgiana Ricketts is a 38 y.o. female who presents to outpatient occupational therapy for evaluation. Her symptoms consist of imbalance, ataxia, and history of falls. Overall she reports her status is worsening. Occupational Profile: Dominant Hand: right Current Level of Function: ADL: Modified Independent, currently is taking baths due to imbalance. IADL: Modified Independent Occupational Roles: On Disability due to cognitive performance. Leisure tasks: Enjoys podcasts, music, and being on phone Driving: Does not drives Functional Mobility: Falls in the last 6 months: Yes 2, Situation: One fall occurred at a bus stop, became dizzy and lost balance. Another fall occurred yesterday while standing on uneven distances. Concerns with mobility: Walking is slow, Distance is limited, Legs get weak, Imbalance/unstable. Gait Aid: None Ambulatory Capacity: Short distance outside. Patient endorses difficulty with the following functional mobility: Bed Mobility: Yes - becoming harder Sit to Stand Transfers: Yes - becoming harder Home Living: Patient lives with Alone in a Apartment/condo home. Stairs to enter home: No, Handrails: Stairs to alternate levels inside home: No, Handrails: Bathroom: Currently uses a Tub-shower combination, with grab bars. Uses a standard height toilet with counter top near by to assist with getting on and off toilet. Current Therapy:None of the above OBJECTIVE Review of Systems: History obtained from chart review and the patient/caregiver. Patient/Family Education Assessment: The patient was assessed. Barriers assessed (Cultural, Quaker/Spiritual, Motivational, Physical/Cognitive, Language, Emotional): No barriers present, ready to learn. The patient and/or family learns best by: seeing, doing, and listening Pain: did not interfere with session Physical Exam: Upper Extremity Strength: Right: Within functional limits Left: Within functional limits Upper Extremity Range of Motion: Right: Within functional limits Left: Within functional limits Upper Extremity Coordination: Right: Within functional limits Left: Within functional limits Mobility: Displays some imbalance while walking and manipulating backpack items. Improves with focusing on walking alone. TREATMENT The following interventions were performed during today's treatment: Therapist educated patient on strategies to increase independence and safety with medication management. Therapist recommended patient use alarms and the environment to remind them to take their medications (ex. Placing AM meds next to five piece expansion maker hand). Therapist recommended patient use a pill box, sothey can set up 1 week of meds at a time, have meds in one place, and verify if meds have been taken or not. Therapist recommended having some assistance and extra time when setting up the pill box for the first time. Bathroom Equipment- Therapist educated and demonstrated use of bathroom safety equipment to promoteincreased independence and safety while engaging in self- care tasks. Therapist demonstrated use of tub transfer bench. Therapist provided patient information on where they can purchase these items. The patient was provided with the following educational material to support our session today: Bathroom Safety Equipment [id number] Assessment Clinical Impression: Ms. Ricketts presents to occupational therapy with signs and symptoms consistent with ataxia. Patient describes unsteadiness and risk for falls and ataxia which impacts her ability to perform activitiesof daily living safely and independently. Patient consider tub transfer bench to reduce risk of imbalance in the shower, if she chooses to take a shower over the bath. Additionally recommended use ofa pillbox to improve patient's independence with med management. No additional OT needs indicated at this time. Patient participated in therapy today and agreed to the plan of care. Patient denies additional questions. Rehab Potential: Ms. Ricketts has good potential to achieve established occupational therapy goals within the time frame outlined below, provided she actively participates in her occupational therapy treatment plan and home program. Occupational Profile and History review: Brief Performance Deficits: 1 - 3 performance deficits Comorbid Conditions: Other (Comment) (See active problems list) Personal Factors: Balance impairment, History of falls, Needs assistive device Evaluation Complexity: Low Functional Goals and Timeframe's: OT Goal #1: Patient and/or family member(s) will verbalize understanding of all recommendations andeducational topics reviewed above. OT Goal #1 Status: Achieved Progress: All OT goals achieved Plan Ms. Ricketts was educated regarding evaluative findings, diagnosis, prognosis, potential risks and benefits of rehabilitation interventions. A collaborative effort was used to establish goals and plan of care. She was informed of her right to make decisions regarding her care, including refusal of examination or treatment or selection of therapy services from another provider if desired. The treatment plan may be progressed or modified based upon her response to treatment. Treatment Plan: Start of Plan of Care: 05/09/2023 Number of Visits: up to 1 visits OT Duration: 1 days Plan: Discontinue OT Treatment interventions may include: Treatment Interventions: Self-care/home management, Therapeutic functional activity, Therapeutic exercise, Neuromuscular re-education Occupational Therapy Attestation Statement: Patient agrees with the plan of care and goals. Time Spent with Patient Evaluations Eval - Low Complexity: 9 min Therapeutic Interventions Home Management Training (min): 13 min Time Tracking Total Timed Units (min): 13 min Total Treatment Time (min): 22 min UCT ENGINEERING MANAGER documented in this encounter Plan of Treatment Not on file documented as of this encounter Visit Diagnoses Diagnosis Imbalance Non Orthopedic- Primary Ataxia Cerebellar (HCC) documented in this encounter Additional Health Concerns Assessment Noted Time PHQ-9 Depression Total Score: 4 02/04/20 14 10:35 AM PRODUCT ENGINEERING MANAGER documented as of this encounter Care Teams Counter Top Maker Relationship Specialty Start Date End Date Cyndee Burton APRN, C.N.P., D.N.P. [address] [phone] PCP - General Family Medicine 03/12/21 documented as of this encounter
--- OUTSIDE RECORDS SUMMARY | 2023-07-05 13:05 | XMS_ITS | Encounter Summary ---
Author Name Unknown Organization [facility] Address [address] [place] [address] Care Team Providers Care Director Agency & Strategic Partnerships Name Role Phone Cyndee Burton APRN, C.N.P., D.N.P. Primary Ca re Provider Reason for Visit * Outpatient (Routine) - Closed Specialty Diagnoses / Procedures Referred By Amanda t Referred To Contact Clinical Genomics Diagnoses Ataxia Cerebellar (HCC) Starr Maldonado M.D. [address] [place] [phone] [facility] Referral ID Status Reason Start Date Expiration Date Visits Re quested Visits Authorized [id number] Closed 02/07/2023 02/07/2024 1 1 Encounter Details Date Type Department Care Team (Latest Contact Info) Description 05/09/2023 11:00 AM GLOBAL CATEGORY MANAGER Comprehensive Visit Department of Neurology in [place], [place] [address] [place] [phone] Chuyita Wood M.D. 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 Alcohol Use Standard Drinks/Week Comments Yes 0 (1 standard drink = 0.6 oz pur e alcohol) 1-2x week [facility] Utilities Answer Date Recorded In the past 12 months has e electric, gas, oil, or water company [...] your living situation today? I have a [place]anning home place to live 05/04/2023 Sex and Gender Information Value Date Recorded Sex Assigned at Female 05/04/2023 11:55 PM GLOBAL CATEGORY MANAGER Gender Identity Female 05/04/2023 11:55 PM GLOBAL CATEGORY MANAGER Sexual Orientation Straight 05/04/2023 11 :55 PM GLOBAL CATEGORY MANAGER documented as of this encounter Consult Notes * Ailyn Reyes M.S., [facility] - 05/09/2023 11:00 AM CST REFERRING PROVIDER Starr Maldonado M.D. CHIEF COMPLAINT Ataxia HISTORY OF PRESENT ILLNESS Georgiana Ricketts is a pleasant 38 y.o. female kindly referred by Starr Maldonado M.D. due to a personal history of ataxia. Please refer to Dr. Chuyita Wood???s consultation for additional details. Briefly, Georgiana Ricketts started to notice ataxia symptoms around the age of 22, which have progressively worsened. She also notes numbness of her feet. She had no known developmental concerns. She did require special education classes in school. 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 On exam, she noted her legs were hurting. She meets with physical therapy today and expressed interested in pursuing this further. She was referred for genetic counseling to discuss genetic testing options. Additional clinical history includes depression, PTSD, anxiety with panic attacks, ADHD, insomnia, hypothyroidism, and a history of prediabetes that resolved with weight loss. Georgiana Ricketts attended today's consultation unaccompanied. FAMILY HISTORY A detailed family history was previously obtained from the patient and a pedigree was constructed. The pedigree will be saved as a scanned document and available for viewing under the Document [employer] of [employer]. Our risk assessment is based upon medical and family history information as provided by the patient and may change in the future should new information be obtained. Pedigree Image RELEVANT FAMILY HISTORY: Georgiana's 32 year old sister has cerebellar ataxia and nystagmus. Her sister was born with ataxia per patient report, and now uses a walker. She obtains PT due to her legs becoming progressively weaker. She does live independently. Georgiana's sister has had significant genetic testing, but this has not identified a genetic etiology to date. Georgiana has two beautiful children, ages 5 and 14. They were both premature and do not live with herat the time. She notes they do not show any symptoms that are concerning. Her mother is living in her 60s, and not known to have any medical concern. Paternal history is not available. The patient's maternal ancestry is [place]; the patient's paternal ancestry is unknown. No consanguinity was reported. IMPRESSION/REPORT/PLAN Genetic Counseling and discussion of genetic testing Whole Genome Sequencing through [facility]. I had the pleasure of meeting the patient today to discuss the role of whole genome sequencing as apotential means to identify an underlying genetic cause for the patient's medical concerns. PATIENT EDUCATION We reviewed the following information about Whole Genome Sequencing or WGS. Whole genome sequencingis a test that detects changes (variants) in a patient's genetic code (DNA) which may be causing a genetic disorder. Humans have approximately 3 billion base pairs of DNA. The goal of whole genome sequencing is to identify genetic variants within a coding region of a gene (exon) or within a regulatory sequence of DNA (intron) that may provide or confirm a specific diagnosis for a patient. Genetic variants may be detected that will explain a patient's clinical features and provide a diagnosis. In some cases, establishing a specific diagnosis may allow for better prediction of patients outcomes. It may also help to determine the best medical management for a patient, such as surveillance, treatment, or preventive measures. Identification of a disease-causing variant may also allow for a more accurate risk estimate and/or diagnosis of at-risk or affected family members. In other cases, even if a disease-causing variant is found and a specific diagnosis is made, it may not change the medical management that was previously recommended. There also may not be a treatment available for the disorder. For some individuals undergoing this testing, a health care provider may recommendadditional tests to better understand the results from whole genome sequencing. Other possible risks, such as those associated with financial/insurance considerations, psychological effects, and implications for family members were discussed. Whole genome sequencing will not establish a diagnosis for all patients who have the test. Due to current limitations in technology and incomplete knowledge of diseases and genes, some variants may not be detected. There is a possibility that there may be results that are uninterpretable or of unknown significance that may require further testing when more information is gained. In rare circumstances, test results may be suggestive of a condition different from that which was originally considered for the purpose of consenting for this testing. Testing may also find variants or genes that lead to conditions for which there is not currently known symptoms or may not be related to the patient's symptoms. Scientific understanding of the role of genes and variants in human diseases is not complete. Therefore, the significance of some variants that are found may not be known. Patients are encouraged to contact their provider for updates regarding their test results, as understanding may change with time. The laboratory's interpretation is based upon the accuracy of the clinical information and family history provided by the ordering health care provider. If pertinent information is not provided, this may affect whether certain variants are reported. Variants in genes known to cause conditions that have features which overlap with the patient's clinical features will be reported (including carrier status for recessive conditions). Variants in these genes will be reported if they are known or expected to cause the genetic condition. Variants of uncertain significance in these genes will alsobe reported. Variants may be found in genes that are suspected, but not certain, to play a role in human disease. Variants in these genes of uncertain clinical significance may be reported if there is a high degree of suspicion that they are causing a patient's clinical features. There is also the option of the patient and family to learn about the [employer] ([employer]) medically-actionable secondary findings. Medically-actionable secondary results are variants that cause health problems for which some type of intervention or preventive measure is available, but that are unrelated to the reason that a patient is having genetic testing. Knowledge of aperson's risk for these conditions can help to determine the medical actions available to maintain that person's health, such as screening for cancer or specific heart conditions. These results may lead to increased anxiety or worry. They may also result in additional medical interventions. Variants of uncertain significance will not be reported in these genes. The patient elected/declined: elected to opt in for the ACMG recommended list of genes. Parents' samples are helpful in analyzing their child's results. Interpretation of genetic variantsis more accurate when the laboratory is able to compare the results between the parents and their child. In the absence of parents, other family members may be asked to participate in testing to helpclarify genetic variants. Participating family members will not receive full test reports for theirsamples. If the patient's reported genetic variants are are found to be shared by participating family members, this will be indicated in the patient's report. Family members may learn about a diagnosis of a genetic condition, increased risk for health concerns, or carrier status for a recessive condition. Variants present in a family member that are absent from the patient will not be reported. Because samples from biological family members are used for whole genome sequencing, it is possible to uncover that a family member is unrelated to a patient due to mis-attributed paternity, maternity, or adoption. In this situation, the use of the sample may not be possible and testing may not be able to be completed. The patient may be charged for laboratory work that was already performed on the samples. In some cases, whole genome sequencing results may suggest that the parents of a patient are biologically related, such as first cousins or another familial relationship. Variants that are known or predicted to be benign (not disease causing) will not be reported. Variants in genes associated with conditions that are not related to a patient's reported clinical features will not be reported, with the possible exception of the medically- actionable secondary results described above. Finally, we reviewed that the testing process typically takes 3-5 months including insurance authorization and review of results. Dealing with neurological symptoms and making decisions regarding workup and management can be difficult. We discussed how Ms. Ricketts has been processing all of this information. Psychosocial support and counseling were provided to the patient. Considerations related to decision-making were discussed. Ms. Ricketts notes that she is comfortable learning as much as she can about her genetics and intends to share results with family members, including her children. PLAN: At the end of the visit, Georgiana elected to pursue Whole Genome Sequencing through [facility]. Georgiana Ricketts is an excellent candidate for whole-genome sequencing. If a genetic diagnosis isidentified, the patient's medical management and/or course of treatment could be significantly impacted. Ways in which finding a result could impact the patient's care include: avoidance of additional invasive and expensive tests, avoidance of additional genetic testing such as panel-based testing,guiding screening for the associated identified abnormalities, informing prognosis to allow for appropriate medical interventions, assistance with identifying other family members at risk, and familyplanning decisions. Prior authorization will be requested for this test, and the outcome will be com municated to the patient via portal message. A previously collected cryopreserved sample will be sent to the laboratory for testing. Verbal consent was obtained for testing and secondary findings by Ailyn Reyes [facility]. The name and relationship to the patient of participating family members include: Sister, Mom [facility] will send saliva collection kits to all participants. Mother, sister The patient expressed understanding of this information. The impression and plan were discussed in detail. There were no apparent barriers to learning or understanding. Questions were answered. I remain available to answer any questions in the future. Total time: 38 minutes AL CATEGORY MANAGER * Chuyita Wood M.D. - 05/09/2023 11:00 AM CST SUBJECTIVE REASON FOR CONSULT Cerebellar ataxia, developmental disorder. HISTORY OF PRESENT ILLNESS Ms. Ricketts is a pleasant 38-year-old female from [place]. She was referred to us by Dr. Maldonado for neurogenetics evaluation of cerebellar ataxia with a positive family history, developmental delay,and she also has short stature. The patient started having symptoms of ataxia at around age 22 years. The gait ataxia has progressed and she stumbles, but does not fall as a result. MRI brain shows cerebellar atrophy. On examination, she has nystagmus in lateral gaze. Developmentally, she has learning difficulties and needed special education classes. She started walking at 18 months of age. She was able to ride a 2-wheel bike and skate. 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 FAMILY HISTORY She describes her sister who is currently 32 years of age, has ataxia since . Sister allowed Dr. Maldonado to review her [place] medical record and sister apparently had cerebellar ataxia genetic testing which did not show the cause for the symptoms. OBJECTIVE PHYSICAL EXAMINATION Neurological: Patient is awake and alert. Speech is fluent. Nystagmus on lateral gaze noted. Patient has a slightly wide-base and upon turning, she is slightly unsteady, but able to walk unassisted. ASSESSMENT / PLAN #1 Cerebellar ataxia #2 Learning difficulty #3 Positive family history of cerebellar ataxia Ms. Ricketts is a pleasant 38-year-old female with approximately 16 years of progressive cerebellar ataxia. On physical exam today, she has nystagmus on lateral gaze. Patient in addition has learning difficulty requiring special education classes. Short stature noted. Family history significant for sister who is currently 32 years of age with ataxia described since . Sister needs a walker to ambulate. Sister had ataxia genetic testing which did not reveal diagnostic abnormalities. We discussed that we recommend proceeding with genome sequencing and we could include the patient'smother if she is willing to participate as well as the patient's sister. Patient indicated that shehas not been in contact with her father over the past 14 years. Patient would like to proceed with genetic testing. Please refer to genetic counselor Alicia from today on the process of genetic testing whole genome sequencing. Chuyita Wood M.D. CT CT Job ID: [id number] AL CATEGORY MANAGER documented in this encounter Plan of Treatment Not on file documented as of this encounter Visit Diagnoses Diagnosis Other Lack Of Expected Normal Physiological Development In Childhood- Primary Ataxia Cerebellar (HCC) documented in this encounter Additional Health Concerns Assessment Noted Time PHQ-9 Depression Total Score: 4 02/04/20 14 10:35 AM GLOBAL CATEGORY MANAGER documented as of this encounter Care Teams Director Agency & Strategic Partnerships Relationship Specialty Start Date End Date Cyndee Burton APRN, C.N.P., D.N.P. [address] [place] [phone] PCP - General Family Medicine 03/12/21 documented as of this encounter
--- OUTSIDE RECORDS SUMMARY | 2023-07-05 13:05 | XMS_ITS | Encounter Summary ---
Author Name Unknown Organization [facility] Address [address] [place] [address] Care Team Providers Care Bi Data Architect Name Role Phone Yasmeen Burtonah Nola STEPHENS, C.N.P., D.N.P. Primary Ca re Provider Encounter Details Date Type Department Care Team (Latest Contact Info) Description 04/24/2023 9:30 AM CHARGE HISTOTECHNOLOGIST - 04/24/2023 11:59 PM CHARGE HISTOTECHNOLOGIST Hospital Encounter Department of Laboratory Medicine and Pathology, [facility] in [place], [place] [address] [place] [phone] Starr Maldonado M.D. [address] [place] [phone] Ataxia Cerebellar (HCC) Discharge Disposition: Home or Self Care Social History Tobacco Use Types Packs/Day Years [...] Sex Assigned at Female 05/04/2023 11:55 PM CHARGE HISTOTECHNOLOGIST Gender Identity Female 05/04/2023 11:55 PM CHARGE HISTOTECHNOLOGIST Sexual Orientation Straight 05/04/2023 11 :55 PM CHARGE HISTOTECHNOLOGIST documented as of this encounter Medications at Time of Discharge Medication Sig Dispensed Refills Start Date End Date HAIR, SKIN AND NAILS, BIOTIN, ORAL Take 1 tablet by mouth daily. 0 levothyroxine (SYNTHROID, LEVOTHROID) 50 mcg tablet Take 50 mcg by mouth every morning before breakfast. 0 09/12/2022 multivitamin (multivitamin) tablet Take 1 tablet by mouth daily. 0 documented as of this encounter Plan of Treatment Not on file documented as of this encounter Procedures Procedure Name Priority Date/Time Associated Diagnosis Comments FRATAXIN, QUANT, WB Routine 04/24/2023 9 :56 AM CHARGE HISTOTECHNOLOGIST Ataxia Cerebellar (HCC) CRYOPRESERVATION FOR MOLEC STUDIES Routine 04/24/2023 9:56 AM CHARGE HISTOTECHNOLOGIST Ataxia Cerebellar (HCC) METHYLMALONIC ACID (MMA), PAPI, S Routine 04/24/2023 9:56 AM CHARGE HISTOTECHNOLOGIST Ataxia Cerebellar (HCC) VITAMIN E, S Routine 04/24/2023 9:56 AM CHARGE HISTOTECHNOLOGIST Ataxia Cerebellar (HCC) LACTATE, B/P Routine 04/24/2023 9:56 AM CHARGE HISTOTECHNOLOGIST Ataxia Cerebellar (HCC) documented in this encounter Results * Lactate (04/24/2023 9:56 AM CHARGE HISTOTECHNOLOGIST) Lactate, P 2.1 0.5 - 2.2 mmol/L 04/24/2023 12:05 PM CHARGE HISTOTECHNOLOGIST DTL Blood (Blood, Venous) 04/24/2023 9:56 AM CHARGE HISTOTECHNOLOGIST 04/24/2023 10:36 AM CHARGE HISTOTECHNOLOGIST Starr Maldonado M.D. LAB BLOOD NON ADD- ON [facility] [address] [place] [address], [facility] [address] [place] [address] * Vitamin E Level (04/24/2023 9:56 AM CHARGE HISTOTECHNOLOGIST) A-Tocopherol, Vitamin E 12.5 5.5 - 17.0 mg/L 04/25/2023 10:59 PM CHARGE HISTOTECHNOLOGIST [facility] Comment: ----ADDITIONAL INFORMATION---- This test was developed and its performance characteristics determined by [facility] in a manner consistent with CLIA requirements. This test has not been cleared or approved by the U.S. Food and Drug Administration. Blood (Blood, Venous) 04/24/2023 9:56 AM CHARGE HISTOTECHNOLOGIST 04/24/2023 2:57 PM CHARGE HISTOTECHNOLOGIST Starr Maldonado M.D. LAB BLOOD NON ADD- ON [facility] [address] [place] [address] [facility] [address] [place] [address] [place] [address] * Cryopreservation for Molecular Genetic Studies (04/24/2023 9:56 AM CHARGE HISTOTECHNOLOGIST) Comment A DNA specimen has been stored for future genomic studies. This specimen has been stored at the request of the ordering physician for anticipated future testing. In some instances, a portion of the specimen may remain available (by consent) for use by the individual and/or family. This is not a DNA banking service. If fpc, guaranteed specimen storage is required, DNA banking should be considered. The Genomic Extraction Core extracted DNA. DNA Volume (microliters): ??500+ Please review the following table to determine the possible number of tests that can be added for send out testing. DNA (ul) ? Possible Send Outs (~120 ul) <100 ? Recommend Redraw 100 ?1 250 ?2 500 ?4 04/27/2023 6:34 PM CHARGE HISTOTECHNOLOGIST DTL Specimen WB Whole Blood 04/27/2023 6:34 PM CHARGE HISTOTECHNOLOGIST DTL Released By NATALY GERMAIN 04/27/2023 6:34 PM CHARGE HISTOTECHNOLOGIST DTL Blood (Blood, Peripheral Draw) 04/24/2023 9:56 AM CHARGE HISTOTECHNOLOGIST 04/24/2023 10:58 AM CHARGE HISTOTECHNOLOGIST Starr Maldonado M.D. LAB GENETIC TESTIN G Performing Organization Address [facility] Co de Phone Number [facility] [address] [place] [address], [facility] DT [address] [address] * Methylmalonic Acid (MMA), Quantitative (04/24/2023 9:56 AM CHARGE HISTOTECHNOLOGIST) Methylmalonic Acid, QN, S 0.20 <=0.40 nmol/mL 04/25/2023 12:35 PM CHARGE HISTOTECHNOLOGIST DTL Comment: ----ADDITIONAL INFORMATION---- This test was developed and its performance characteristics determined by [facility] in a manner consistent with CLIA requirements. This test has not been cleared or approved by the U.S. Food and Drug Administration. Blood (Blood, Venous) 04/24/2023 9:56 AM CHARGE HISTOTECHNOLOGIST 04/24/2023 11:39 AM CHARGE HISTOTECHNOLOGIST Starr Maldonado M.D. LAB BLOOD ADD-ON Performing Organization Address [facility] Co de Phone Number [facility] [address] [place] [address], [facility] [address] [place] [address] * Friedreich Ataxia, Frataxin, Quantitative, Whole Blood (04/24/2023 9:56 AM CHARGE HISTOTECHNOLOGIST) Frataxin 28 >=21 ng/mL 04/27/2023 3:44 PM CHARGE HISTOTECHNOLOGIST DTL Reason for referral Not provided 04/27/2023 3:44 PM CHARGE HISTOTECHNOLOGIST DTL Interpretation *NEGATIVE* In this sample, the level of frataxin is normal. This result indicates that this individual is NOT affected with Friedreich Ataxia. 04/27/2023 3:44 PM CHARGE HISTOTECHNOLOGIST DTL Comment: ----ADDITIONAL INFORMATION---- Immunoassay This test was developed and its performance characteristics determined by [facility] in a manner consistent with CLIA requirements. This test has not been cleared or approved by the U.S. Food and Drug Administration. Blood (Blood, Venous) 04/24/2023 9:56 AM CHARGE HISTOTECHNOLOGIST 04/24/2023 10:34 AM CHARGE HISTOTECHNOLOGIST Starr Maldonado M.D. LAB GENETIC TESTIN G [facility] [address] [place] [address], [facility]TL 200 [facility] 200 [place] [address] documented in this encounter Visit Diagnoses Diagnosis Ataxia Cerebellar (HCC) documented in this encounter Additional Health Concerns Assessment Noted Time PHQ-9 Depression Total Score: 4 02/04/20 14 10:35 AM CHARGE HISTOTECHNOLOGIST documented as of this encounter Care Teams Bi Data Architect Relationship Specialty Start Date End Date Cyndee Burton APRN, C.N.P., D.N.P. [address] [phone] PCP - General Family Medicine 03/12/21 documented as of this encounter
--- OUTSIDE RECORDS SUMMARY | 2023-07-05 13:05 | XMS_ITS | Encounter Summary ---
Author Name Unknown Organization [facility] Address [address] [place] [address] Care Team Providers Care Medical Director Name Role Phone RuddyCyndee santiago Nola STEPHENS, C.N.P., D.N.P. Primary Ca re Provider Encounter Details Date Type Department Care Team (Late st Contact Info) Description 05/02/2023 Documentation Department of Neurology in [place], [place] [address] [place] [phone] Starr Maldonado M.D. [address] [place] [phone] Social History Tobacco Use Types Packs/Day Years [...] Sex Assigned at Female 05/04/2023 11:55 PM MACHINE FELLER Gender Identity Female 05/04/2023 11:55 PM MACHINE FELLER Sexual Orientation Straight 05/04/2023 11 :55 PM MACHINE FELLER documented as of this encounter Progress Notes * Starr Maldonado M.D. - 05/02/2023 3:28 PM CST Vitamin-E, MMA, frataxin, and lactate levels were all normal. Patient to see Genetics in the futurefor further evaluation. INE FELLER documented in this encounter Plan of Treatment Not on file documented as of this encounter Visit Diagnoses Not on filedocumented in this encounter Additional Health Concerns Assessment Noted Time PHQ-9 Depression Total Score: 4 02/04/20 14 10:35 AM MACHINE FELLER documented as of this encounter Care Teams Medical Director Relationship Specialty Start Date End Date Cyndee Burton APRN, C.N.P., D.N.P. [address] [place] [phone] PCP - General Family Medicine 03/12/21 documented as of this encounter
--- OUTSIDE RECORDS SUMMARY | 2023-07-05 13:05 | XMS_ITS ---
Author Name Unknown Organization [facility] Address [address] [place] [address] Support Name Relationship Address Aury Cartwright Title Emergency Contact Unknown [phone] Care Team Providers Care Buffet Attendant Name Role Phone Unavailable Unavailable Unavailable Surgery Details Not on file Complications Check Surgery Details section. Procedure Estimated Blood Loss Check Surgery Details section. Procedure Findings Check Surgery Details section. Procedure Specimens Taken Check Surgery Details section.
--- OUTSIDE RECORDS SUMMARY | 2023-07-05 13:05 | XMS_ITS | Encounter Summary ---
Author Name Unknown Organization [facility] Address [address] [place] [address] Care Team Providers Care Executive Vice President And Chief Operating Officer Name Role Phone Josephine Cyndee Nola STEPHENS, C.N.P., D.N.P. Primary Ca re Provider Reason for Visit * Reason Onset Date Comments Neuro [facility] WGS : AC 05/09/2023 Encounter Details Date Type Department Care Team (Latest Contact Info) Description 05/09/2023 Clinical Communication Department of Medical Genetics in [place], [place] [address] [place] [phone] Ángel Roman [address] [place] [phone] Neuro [facility] WGS : AC Social History Tobacco Use Types Packs/Day Years Used Date Smoking Tobacco: Never Passive Smoke Exposure: Current Smokeless Tobacco: Never Passive Exposure Comments:Cu rrent and past exposure. Alcohol Use Standard Drinks/Week Comments Yes 0 (1 standard drink = 0.6 oz pur e alcohol) 1-2x week [employer] Utilities Answer Date Recorded In the past 12 months has [employer], gas, oil, or water [employer] threatened to shut off services in your [...] your living situation today? I have a [facility] place to live 05/04/2023 Sex and Gender Information Value Date Recorded Sex Assigned at Female 05/04/2023 11:55 PM MOTORCOACH OPERATOR Gender Identity Female 05/04/2023 11:55 PM MOTORCOACH OPERATOR Sexual Orientation Straight 05/04/2023 11 :55 PM MOTORCOACH OPERATOR documented as of this encounter Miscellaneous Notes * Telephone Encounter - Ángel Roman - 06/29/2023 11:29 AM CDT Sample received by [facility]; BI in process * Telephone Encounter - Ángel Roman - 06/14/2023 9:54 AM CDT Sent POM checking in * Telephone Encounter - Ángel Roman - 05/24/2023 1:55 PM CST Pt responded with mom's information, pending decision by sister. RCOACH OPERATOR * Telephone Encounter - Abel Ángel Narvaez - 05/23/2023 10:13 AM CST ----- Message from Ailyn Vaca Cera, M.S., [facility] sent at 05/22/2023 12:01 PM MOTORCOACH OPERATOR ----- Date: 05/22/23 Lab: [facility] Testing: WGS GC: Ailyn Reyes CGC MD: Dr. Chuyita Wood Possible Participant Information if Known: Mother: Pending Other: Sister, pending Sample(s): Cryo Phenotype completed? Yes Consent form completed? Yes Epic order placed? Yes Secondary Findings : Yes Additional notes: My note, Dr. Wood's notes, pedigree, Dr. Maldonado's (04/05/2023), MR Brain (12/12), FXN testing (labs) RCOACH OPERATOR documented in this encounter Plan of Treatment Not on file documented as of this encounter Visit Diagnoses Not on filedocumented in this encounter Additional Health Concerns Assessment Noted Time PHQ-9 Depression Total Score: 4 02/04/20 14 10:35 AM MOTORCOACH OPERATOR documented as of this encounter Care Teams Executive Vice President And Chief Operating Officer Relationship Specialty Start Date End Date Cyndee Burton APRN, C.N.P., D.N.P. [address] [phone] PCP - General Family Medicine 03/12/21 documented as of this encounter
--- OUTSIDE RECORDS SUMMARY | 2023-07-05 13:05 | XMS_ITS | Encounter Summary ---
Author Name Unknown Organization [facility] Address [address] [place] [address] Care Team Providers Care Insulator Apprentice Name Role Phone Cyndee Burton APRN C.N.P., D.N.P. Primary Ca re Provider Reason for Visit * Physical Therapy (Routine) - Closed Specialty Diagnoses / Procedures Referred By Contac t Referred To Contact Diagnoses Ataxia Cerebellar (HCC) Procedures PT Evaluate and treat Starr Maldonado M.D. [address] [place] [phone] [facility] Referral ID Status Reason Start Date Expiration Date Visits Re quested Visits Authorized [id number] Closed 04/05/2023 04/04/2024 1 1 Encounter Details Date Type Department Care Team (Latest Contact Info) Description 05/09/2023 2:00 PM GIS PROGRAMMER Comprehensive Visit Department of Physical Medicine and Rehabilitation in [place], [place] [address] [place] [phone] Starr Maldonado M.D. [address] [place] [phone] Viviana Lee P.T., D.P.T., A.T.C. [address] [place] [phone] Ataxia (Primary Dx); Ataxia Cerebellar (HCC) Social History Tobacco Use Types Packs/Day Years Used Date Smoking Tobacco: Never Passive Smoke Exposure: Current Smokeless Tobacco: Never Passive Exposure Comments:Cu rrent and past exposure. Alcohol Use Standard Drinks/Week Comments Yes 0 (1 standard drink = 0.6 oz pur e alcohol) 1-2x week [facility] Utilities Answer Date Recorded In [...] your living situation today? I have a [facility] place to live 05/04/2023 Sex and Gender Information Value Date Recorded Sex Assigned at Female 05/04/2023 11:55 PM GIS PROGRAMMER Gender Identity Female 05/04/2023 11:55 PM GIS PROGRAMMER Sexual Orientation Straight 05/04/2023 11 :55 PM GIS PROGRAMMER documented as of this encounter Consult Notes * Maxine Drake, SPT - 05/09/2023 2:00 PM CST Physical Therapy Neurologic Outpatient Evaluation and Treatment By co-signing this note, the provider certifies the therapy being provided to this patient is reasonable and necessary for the diagnosis or treatment of this patient. SUBJECTIVE Patient's Name: Georgiana Ricketts Referring Provider: Starr Maldonado M.D. Medical Diagnosis: 1. Ataxia 2. Ataxia Cerebellar (HCC) Reason for Referral: Physical therapy evaluate and treatment: Neuro Payor: [facility] / Plan: [employer] / Product Type: Medicaid HMO / Upshot Visit Count: 1 PT Next Certification Date: 08/07/23 PERTINENT MEDICAL / [...] 38 y.o. female who presents to outpatient physical therapy for evaluation in setting of ataxia. Her symptoms consist of weakness, imbalance, decreased activity tolerance, ataxia. Current Level of Function: ADLs: Modified Independent. Patient reports she currently has difficulty with showering/bathing. Has been taking more baths, due to feeling unsteadiness Functional Mobility: Falls in the last 6 months: Yes 2, Situation: At the bus stop, became dizzy and lost balance; Goingup the stairs to do the laundry, lost footing and fell; no big injuries Concerns with mobility: Walking is slow, Distance is limited, Legs get weak, Imbalance/unstable. Gait Aid: None Ambulatory Capacity: Short distance outside Patient endorses difficulty with the following functional mobility: Bed Mobility: Yes - becoming harder Sit to Stand Transfers: Yes - becoming harder Home Living: Patient lives with Alone in a Apartment/condo. Stairs to enter home: No, Handrails: Stairs to alternate levels inside home: No, Handrails: Current Exercise: No; Current Therapy:None of the above Family/Caregiver Present: No Patient goals: Learn strategies to manage condition, Exercises to address balance, Strategies and devices to help walking Patient/Family Education Assessment: The patient was assessed. Barriers assessed (Cultural, Jewish/Spiritual, Motivational, Physical/Cognitive, Language, Emotional) No Barriers The patient and/or family learning style includes: seeing, doing, and listening OBJECTIVE REVIEW OF SYSTEMS History obtained from chart review and the patient I briefly reviewed the review of systems as noted on the health history form. I am only responding to those symptoms which are directly relevant the specific indication for my consultation. I recommended the patient follow up with their primary care referring provider to pursue any other symptoms which may be of concern. PHYSICAL EXAM Vitals: Not formally assessed as not indicated. Mental status: Awake and alert but did not formally assess orientation. Cranial nerves: Did not formally assess but appears globally intact based on visual observation. Posture: No significant postural abnormalities Gait/Stair: Wide based gait, decreased arm swing. Utilizes wall to maintain balance while ambulating Bed Mobility/Transfers: Independently rises from sitting independently with upper extremities Balance: able to maintain balance without hand support in normal stance, able to maintain balance in Romberg with head turns, able to maintain balance in [place] with eyes closed, and unable hold single leg balance bilaterally Range of Motion: Lower extremities within functional limits, Upper extremities within functional limits Strength: Lower extremities within functional limits on manual muscle testing, Upper extremities within functional limits on manual muscle testing Sensory: Did not formally assess. Tone: Appeared normal during functional mobility Coordination: Appeared normal during mobility, Ataxia noted - during ambulation and finger to nose TREATMENT Treatment today consisted of: -- Gait Training: The following gait training was performed: - 4WW: Educated on proper use of a four-wheeled walker to improve stability and safety with ambulation, as well as for assisting with normal gait mechanics. Therapeutic Exercise The following education provided today: Home Exercise Program/Education: Rationale of home exercises and expected outcomes were discussed. Verbal, tactile, and visual cues were provided as needed for appropriate technique in order to promote self management of condition. Educated patient on possible methods of progressions and regression based on tolerance of activities. All patient questions were answered to the best of my ability. The following patient education materials were provided today: [employer]: Paper copy provided to patient and Copy of exercises added to the patient's portal Access Code: [email or web address] URL: [email or web address] Date: 05/09/2023 Prepared by: Viviana Sam Exercises - Single Leg Balance - 2 x daily - 7 x weekly - 30s hold - Backward Walking with Counter Support - 3-4 x weekly - 25 reps - Side Stepping with Counter Support - 3-4 x weekly - 25 reps - Semi-Tandem Corner Balance With Eyes Open - 2 x daily - 7 x weekly - 2 reps - 30s hold - Semi-Tandem Corner Balance With Eyes Closed - 2 x daily - 7 x weekly - 2 reps - 30s hold - Semi-Tandem Corner Balance: Eyes Open With Head Turns - 2 x daily - 7 x weekly - 2 reps - 30s hold - Mini Squat with Counter Support - 3-4 x weekly - 3 sets - 10 reps Assessment Clinical Impression: Ms. Ricketts presents to physical therapy for evaluation and recommendations in the setting of ataxia.Examination findings were significant for imbalance, ataxia, gait abnormalities, which leads to functional limitations including difficulty with transfers, household navigation, stairs, community navigation, increased fall risk. Patient was instructed in use of gait aid, home exercise program. Strongly recommended that patient use a 4ww for ambulation. Gave patient a handout for a 4ww she can buyat [employer]. Patient already has prescription for physical therapy closer to home. Patient was agreeable to the above plan of care and appreciative of our session. They had no further questions or concerns and felt goals were met. Rehab Potential: Ms. Ricketts has Good potential to achieve established physical therapy goals within the time frame outlined below, provided she actively participates in her physical therapy treatment plan and home program. Comorbid Conditions: Other (Comment) (See active problem list) Personal Factors: Balance impairment, History of falls, Needs assistive device Clinical Presentation: Evolving Examination elements: 4+ Clinical Decision Making: Moderate complexity clinical decision making Functional Goals and Timeframes: PT Goal #1: Patient will demonstrate understanding of home exercise program to promote independent self-management of condition. Plan Ms. Ricketts was educated regarding evaluative findings, diagnosis, prognosis, potential risks and benefits of rehabilitation interventions. A collaborative effort was used to establish goals and plan of care. She was informed of her right to make decisions regarding her care, including refusal of examination or treatment or selection of services from another provider if desired. The treatment plan may be progressed or modified based upon her response to treatment. Patient agrees with the plan of care and goals. Treatment Plan: Start of Plan of Care: 05/09/2023 PT Next Certification Date: 08/07/23 Number of Visits: up to 1 visits PT Duration: up to 1 days PT Frequency: One-time visit Treatment interventions may include: Treatment/Interventions: Therapeutic exercise, Therapeutic functional activity, Neuromuscular re-education, Gait training, Orthosis [id number], Self-care/home management Plan for next session: One time visit, no further follow up Continue/initiate care locally Time Spent with Patient Evaluations PT Eval - Mod Complexity: 8 min Therapeutic Interventions Gait Training (min): 10 min Therapeutic Exercise (min): 10 min Time Tracking Total Timed Units (min): 20 min Total Treatment Time (min): 28 min Maxine Drake, SPT PROGRAMMER Associated attestation - Viviana Lee P.T., D.P.T., Evangelina - 05/09/2023 4:13 PM GIS PROGRAMMER This therapist has reviewed all documentation and supervised today's session. This therapist agreeswith the plan of care developed in collaboration with the patient. documented in this encounter Nursing Notes * Viviana Sam P.T., [place], Evangelina - 05/09/2023 2:00 PM CST Re: Georgiana Ricketts : 1985 Diagnoses: Ataxia [R27.0] I certify that the rehabilitation services associated with this encounter are required and authorized by me, and that the patient's plan will be reviewed as needed or by end of current plan of care stated. Health Care Provider Signature: per electronic cosignature PROGRAMMER documented in this encounter Plan of Treatment Not on file documented as of this encounter Visit Diagnoses Diagnosis Ataxia- Primary Ataxia Cerebellar (HCC) documented in this encounter Additional Health Concerns Assessment Noted Time PHQ-9 Depression Total Score: 4 02/04/20 14 10:35 AM GIS PROGRAMMER documented as of this encounter Care Teams Insulator Apprentice Relationship Specialty Start Date End Date Cyndee Burton APRN, C.N.P., D.N.P. [address] [phone] PCP - General Family Medicine 03/12/21 documented as of this encounter
--- OUTSIDE RECORDS SUMMARY | 2023-07-05 13:05 | XMS_ITS ---
Author Name Unknown Organization [facility] Address [address] [place] [address] Care Team Providers Care Aviation Project Engineer Name Role Phone Cyndee Burton APRN, C.N.P., D.N.P. Primary Ca re Provider Genomics Program Status:Closed (Closed) Start date:04/05/2023 End date:04/06/2023 Close reason:Incorrect referral Overview Order canceled Continued Care and Services Coordination
--- OUTSIDE RECORDS SUMMARY | 2023-07-05 13:05 | XMS_ITS | Clinical Summary ---
Author Name Unknown Organization [email or web address] Address [place], [place] [address] Care Team Providers Care Alumni Secretary Name Role Phone Emile Myers MD Unavailable [phone] Rodrigo Fox MD Primary Care Provider Allergies Active Allergy Reactions Criticality Noted Date Comments Sulfa (Sulfonamide Antibiotics) Hives 01/25 Medications Medication Sig Dispensed Refills Start Date End Date Status metFORMIN (GLUCOPHAGE XR) 500 mg Extended-Release tabletIndications:P rediabetes Take 1 Tablet (500 mg) by mouth once daily. 90 Tablet 3 08/18/2022 Active multivitamin (MVI) tablet Take 1 Tablet by mouth once daily. 0 08/18/2022 Active levothyroxine (SYNTHROID) 50 mcg tabletIndications:H ypothyroidism (acquired) TAKE 1 TABLET(50 MCG) BY MOUTH BEFORE BREAKFAST 90 Tablet 2 09/12/2022 Active FLUoxetine (PROZAC) 20 mg capsuleIndications: Depression with anxiety Take 1 Capsule (20 mg) by mouth every morning. 90 Capsule 1 02/06/2023 Active Active Problems Problem Noted Date Diagnosed Date Subclinical hypothyroidism 03/08/2021 Depression 02/20/2015 Hidradenitis suppurativa 02/10/2015 Obesity (BMI 30-39.9) 02/10/2015 Anxiety 05/25/2013 Insomnia 09/18/2012 History of cervical dysplasia 09/18/2012 Developmental disorder 09/18/2012 Overview: date unknown [facility] Field Marketing Manager: Blossom Leone Herpes genitalis 04/12/2012 Hypertriglyceridemia 01/03/2012 Immunizations Name Administration Dates Next Due COVID-19 vaccine (Moderna 100mcg/0.5mL) PF, MDV 08/14/2020,07/17/2020 COVID-19 vaccine (Pfizer-Bio NTech 30mcg/0.3mL) 12YO+ BIVALENT PF, MDV 02/21/2022 COVID-19 vaccine (Pfizer-Bio NTech 30mcg/0.3mL) PF, MDV 03/08/2021,03/08/2021 DT (Age < 7 years) 10/20/2008 DTaP 11/13/2001, 9,1987,1987,1987 HIB-HepB (Comvax) 02/20/2002 Hepatitis B (Adult) 11/21/2000,03/07/2000,1999 Hepatitis B, Unspecified 11/21/2000,03/07/2000,1 Human Papilloma Virus Vaccine 12/20/2011, 012,03/08/2011 Inactivated Polio Vaccine 11/14/1991,,04/16/1988,1987,1987 Influenza A (H1N1), Inactivated 03/16/2009 Influenza A (H1N1), Inactiva tabatha (Age >=3 Years) 03/16/2009 Influenza Virus, Unspecified 01/03/2014, 04/15/2013,12/20/2011,2009,01/05/2009,01/09/2008 Influenza, IIV3 (Age >=3 years) 12/20/2011,02/24,01/18/2007 Influenza, IIV4 02/06/2023,02/21/2022,01/18/2021 MMR 02/20/2002,11/21/2000,09/15/1988 Td, Preservative Free (age > = 7 Years) 09/24/2003 Tdap 01/18/2021 Family History Medical History Relation Name Comments No Known Problems Father Heart Disease Maternal Grandfather Hypertension Maternal Grandfather Diabetes Maternal Uncle Hypertension Mother Migraines Mother Migraines Sister Relation Name Status Comments Father Maternal Grandfather Maternal Uncle Alive Mother Sister Social History Tobacco Use Types Packs/Day Years Used Date Smoking Tobacco: Never Smokeless Tobacco: Never Tobacco Cessation:Counseling Given: Yes Alcohol Use Standard Drinks/Week Comments Not Currently 0 (1 standard drink = 0.6 oz pur e alcohol) rarely PHQ-2 Answer Date Recorded PHQ-2 TOTAL SCORE 3 02/06/2023 Social Connections Answer Date Recorded Frequency of Communication with Friends and Fami ly Not on file 06/09/2023 Financial Resource Strain Answer Date R ecorded Difficulty of Paying Living Expenses 3 06/08/2022 Difficulty of Paying Living Expenses Not on file 06/08/2022 Food Insecurity Answer Date Recorded Worried About Running Out of Food in the Last Ye ar 1 06/08/2022 Transportation Needs Answer Date Record ed Lack of Transportation (Medical) 1 06/08/2022 Housing Stability Answer Date Recorded Unable to Pay for Housing in the Last Year 1 06/08/2022 Sex and Gender Information Value Date Recorded Sex Assigned at Not on file Gender Identity Not on file Sexual Orientation Not on file Obstetrics History Para Term AB IAB SAB Ectopic Multiple Livin g Live Births 2 2 2 2 2 Date Outcome GA Total Labor Labor/2nd/3rd Weight Sex Delivery Anes PTL Nathaly A1 A5 Name Cl in 2008 35w 0d M Vag Nayely ng 2018 36w 2d M Vag Nayely ng Delivery Location:[place] Last Filed Vital Signs Vital Sign Reading Time Taken Comments Blood Pressure 100/70 02/06/2023 3:30 PM [facility] Pulse 80 02/06/2023 3:30 PM [facility] Temperature 36.8 ??C (98.3 ??F) 12/24/2021 11:25 AM C DT Respiratory Rate 20 12/24/2021 11:25 AM CDT Oxygen Saturation 94% 01/18/2023 1:01 PM CDT Inhaled Oxygen Concentration - - Weight 93.7 kg (206 lb 9.6 oz) 02/06/2023 3:30 P M [facility] Height 150 cm (4' 11.06) 02/06/2023 3:30 PM [facility] Body Mass Index 41.65 02/06/2023 3:30 PM [facility] Plan of Treatment Health Maintenance Due Date Last Done Comments COVID-19 vaccine series ( season) 2022 02/21/2022, 03/08/2021, 03/08/2021, Additional history exists Influenza for age 9-49 11/26/2023 , 02/21/2022, 01/18/2021, Additional history exists BMI (ht and wt on same day) for age 18+ 02/07/2024 02/06/2023, 04/18/2022, 02/21/2022, Additional history exists Depression screening for age 12+ 02/07/2024 02/06/2023, 02/21/2022 Pap test for age 21-65 03/08/2026 (Verified in Care Everywhere or Patient Record) Tetanus booster 01/18/2031 01/18/2021, 09/24/2003 HIV for age 15-65 Addressed 04/10/2012 (Ve rified in Care Everywhere or Patient Record) Overridden with the intention of not completing the topic Tdap Completed 01/18/2021 Hepatitis C screening for age 18-79 Completed 02/06/2023 Pneumococcal series for age 6-64 Aged Out No longer eligible b ased on patient's age to complete this topic Procedures Procedure Name Priority Date/Time Associated Diagnosis Comments ANTI HCV Routine 02/06/2023 4:16 PM [facility] Need for hepatitis C screening test from Last 3 Months or Most Recently Relevant to Health Maintenance Results * ANTI HCV (02/06/2023 4:16 PM [facility]) HEPATITIS C ANTIBODY Non-Reacti ve Non-React lucille 02/06/2023 10:57 PM [facility] Comment:Please note, per www .CDC.gov: If a patient is known to be at high risk of HCV infection, or is symptomatic, and the physician's suspicion of HCV infection is high, HCV RNA testing is often employed and is of diagnostic value, even after an initial negative anti-HCV test result. Blood BLOOD SPECIMEN / Unknown Venipuncture / Unknown 02/06/2023 4:16 PM [facility] 02/06/2023 4:18 PM [facility] Rodrigo Fox MD SEND OUTS [facility] [address] [place] [address], from Last 3 Months or Most Recently Relevant to Health Maintenance Care Teams Alumni Secretary Relationship Specialty [place] [id number] [place] [address] PCP - General Family Practice 02/06/23 Emile Myers MD [address] [place] [address] Family Practice 12/24/21
--- OUTSIDE RECORDS SUMMARY | 2023-07-05 13:05 | XMS_ITS | Clinical Summary ---
Author Name Unknown Organization [facility] Address [address] [place] [id number] Care Team Providers Care Warehouse Shipping Clerk Name Role Phone Cyndee Burton APRN, C.N.P., D.N.P. Primary Ca re Provider Source Comments Patient records contain information from all sites at [facility]. For routine questions regarding patient records, call [phone] during business hours, M-F 8:00 AM - 5:00 PM Central Time. Record requests for emergency care only can be directed to [phone] at any time.[facility] Allergies Active Allergy Reactions Criticality Noted Date [...] Development In Childhood 09/18/2012 Overview: date unknown [facility] Manager Process Excellence: Blossom Leone Insomnia 09/18/2012 Dysthymia 08/31/2012 Overview: Dysthymic Disorder Herpes Genitalis 04/12/2012 Hypertriglyceridemia 01/03/2012 Hidradenitis Suppurativa 08/04/2010 Overview: date unknown Encounters Date Type Department Care Team Description 05/09/2023 3:00 PM PACKAGE REINSPECTOR Comprehensive Visit Department of Physical Medicine and Rehabilitation in [address] [phone] Starr Maldonado M.D. Roxanne Baptiste O.T., MOT Imbalance Non Orthopedic (Primary Dx); Ataxia Cerebellar (HCC) 05/09/2023 2:00 PM PACKAGE REINSPECTOR Comprehensive Visit Department of Physical Medicine and Rehabilitation in [address] [address] Starr Maldonado M.D. Viviana Lee, P.T., D.P.T., A.T.C. Ataxia (Primary Dx); Ataxia Cerebellar (HCC) 05/09/2023 1:00 PM PACKAGE REINSPECTOR Comprehensive Visit Department of Physical Medicine and Rehabilitation in [address] [address] Chay Soto M.D., M.P.H. Ataxia Cerebellar (HCC) 05/09/2023 11:00 AM PACKAGE REINSPECTOR Comprehensive Visit Department of Neurology in [address] [address] Chuyita oWod M.D. 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 04/24/2023 9:30 AM PACKAGE REINSPECTOR - 04/24/2023 11:59 PM PACKAGE REINSPECTOR Hospital Encounter Department of Laboratory Medicine and Pathology, [facility] in [address] [phone] Starr Maldonado M.D. Ataxia Cerebellar (HCC) Discharge Disposition: Home or Self Care 04/18/2023 8:45 AM PACKAGE REINSPECTOR Clinical Support Department of Medical Genetics in [place], [place] [address] [place] [address] Starr Maldonado M.D. Winter, Tori R Ataxia Cerebellar (HCC) 04/05/2023 8:00 AM PACKAGE REINSPECTOR Comprehensive Visit Department of Neurology in [place], [place] [address] [place] [address] Starr Maldonado M.D. Ataxia Cerebellar (HCC) (Primary Dx) from Last 3 Months Immunizations Name Administration Dates Next Due 4vHPV (discontinued) 12/20/2011,05/25/2011,03/08 DT, Pediatric 10/20/2008 H1N1 All Forms 03/16/2009 HepB Adult 11/21/2000,03/07/2000,01/11/2000 HepB, Unspecified 11/21/2000,03/07/2000,01/11/20 00 Influenza, Unspecified 01/03/2014,2013,12/20/2011,2009,01/05/2009,01/09/2008 MMR 11/21/2000,09/15/1988 SARS-COV-2 (COVID-19) - PFIZ ER (Discontinued)(12 years or older) 03/08/2021 Tdap 01/18/2021 influenza vaccine quad (FLUZONE/FLUARIX) (6 months and older)(PF) 01/18/2021 Family History Medical History Relation Name Comments Diabetes Maternal Grandfather Hypertension Maternal Grandfather Cardiac pacemaker Maternal Grandmother Diabetes Maternal Grandmother Multiple myeloma Maternal Grandmother d. Brain Tumor Mother Hearing loss Mother later in life, wears hearing aids Hypertension Mother Diabetes Mother's Brother 1 Diabetes Mother's Brother 2 Diabetes Mother's Brother 3 Learning difficulties Mother's Brother 3 Ataxia Sister Genetic Disorder Sister has had gen etic testingataxia panels SYNE1 VUS Nystagmus Sister Relation Name Status Comments Father no contact Maternal Cousin 1 Alive no known h ealth concerns Maternal Cousin 2 Alive no known h ealth concerns Maternal Grandfather Alive Maternal Grandmother Mother Alive Mother's Brother 1 Alive Mother's Brother 2 Alive Mother's Brother 3 Alive Sister Alive Son 1 Alive A/W Son 2 Alive A/W Social History Tobacco Use Types Packs/Day Years Used Date Smoking Tobacco: Never Passive Smoke Exposure: Current Smokeless Tobacco: Never Passive Exposure Comments:Cu rrent and past exposure. Alcohol Use Standard Drinks/Week Comments Yes 0 (1 standard drink = 0.6 oz pur e alcohol) 1-2x week [employer] Answer Date Recorded In the past 12 months has th e [employer], gas, oil, or water [employer] threatened to shut off services in your [...] Sex Assigned at Female 05/04/2023 11:55 PM PACKAGE REINSPECTOR Gender Identity Female 05/04/2023 11:55 PM PACKAGE REINSPECTOR Sexual Orientation Straight 05/04/2023 11 :55 PM PACKAGE REINSPECTOR Last Filed Vital Signs Vital Sign Reading Time Taken Comments Blood Pressure 131/82 04/05/2023 8:08 AM PACKAGE REINSPECTOR Pulse 76 04/05/2023 8:08 AM PACKAGE REINSPECTOR Temperature 36.8 ??C (98.2 ??F) 10/10/2021 7:12 PM CD T Respiratory Rate 19 10/10/2021 9:00 PM CDT Oxygen Saturation 95% 10/10/2021 9:00 PM CDT Inhaled Oxygen Concentration - - Weight 93.2 kg (205 lb 5.7 oz) 04/05/2023 8:08 A M PACKAGE REINSPECTOR Height 149.7 cm (4' 10.94) 04/05/2023 8:[address] Body Mass Index 41.57 04/05/2023 8:08 AM PACKAGE REINSPECTOR Plan of Treatment Health Maintenance Due Date Last Done Comments Hepatitis C Screening 1985 COVID-19 Vaccine ( season) 2022 02/21/2022, 03/08/2021, 08/14/2020, Additional history exists Depression Screening (Annual PHQ-2) 03/27/2023 Thyroid Stimulating Hormone (TSH) test for thyroid function 08/19/2023 08/18/2022, 06/08/2022, 03/08/2021, Additional history exists Lipid (Cholesterol) Screening 02/07/2024 02/06/2023, 03/08/2021, 04/30/2013, Additional history exists Cervical Cancer Screening 03/08/20262020, 03/08/2021, 09/15/2015, Additional history exists DTaP,Tdap,and Td Vaccines (9 - Td or Tdap) 01/18/2031 01/18/2021, 10/20/2008, 09/24/2003, Additional history exists Hepatitis B Vaccines Completed 02/20/2002, 11/21/2000, 11/21/2000, Additional history exists HPV Vaccines Completed 12/20/2011, 0211/2011, 03/08/2011 HIV Screening Completed 04/10/2012 Influenza Vaccine Completed 02/06/2023, , 01/18/2021, Additional history exists Pneumococcal vaccine (0-64 years) Aged Out No longer eligible based on patient's age to complete this topic Procedures Procedure Name Priority Date/Time Associated Diagnosis Comments [facility] [employer] Routine 04/24/2023 9:56 AM PACKAGE REINSPECTOR LACTATE, B/P Routine 04/24/2023 9:56 AM PACKAGE REINSPECTOR Ataxia Cerebellar (HCC) VITAMIN E, S Routine 04/24/2023 9:56 AM PACKAGE REINSPECTOR Ataxia Cerebellar (HCC) CRYOPRESERVATION FOR MOLEC STUDIES Routine 04/24/2023 9:56 AM PACKAGE REINSPECTOR Ataxia Cerebellar (HCC) METHYLMALONIC ACID (MMA), PAPI, S Routine 04/24/2023 9:56 AM PACKAGE REINSPECTOR Ataxia Cerebellar (HCC) FRATAXIN, QUANT, WB Routine 04/24/2023 9 :56 AM PACKAGE REINSPECTOR Ataxia Cerebellar (HCC) from Last 3 Months Results * Friedreich Ataxia, Frataxin, Quantitative, Whole Blood (04/24/2023 9:56 AM PACKAGE REINSPECTOR) Frataxin 28 >=21 ng/mL 04/27/2023 3:44 PM PACKAGE REINSPECTOR DTL Reason for referral Not provided 04/27/2023 3:44 PM PACKAGE REINSPECTOR DTL Interpretation *NEGATIVE* In this sample, the level of frataxin is normal. This result indicates that this individual is NOT affected with Friedreich Ataxia. 04/27/2023 3:44 PM PACKAGE REINSPECTOR DTL Comment: ----ADDITIONAL INFORMATION---- Immunoassay This test was developed and its performance characteristics determined by [facility] in a manner consistent with CLIA requirements. This test has not been cleared or approved by the U.S. Food and Drug Administration. Blood (Blood, Venous) 04/24/2023 9:56 AM PACKAGE REINSPECTOR 04/24/2023 10:34 AM PACKAGE REINSPECTOR Starr Maldonado M.D. LAB GENETIC TESTIN G [facility] [address] [place] [address], [facility] DTL [address] [facility] [address] [place] [address] * Cryopreservation for Molecular Genetic Studies (04/24/2023 9:56 AM PACKAGE REINSPECTOR) Comment A DNA specimen has been stored for future genomic studies. This specimen has been stored at the request of the ordering physician for anticipated future testing. In some instances, a portion of the specimen may remain available (by consent) for use by the individual and/or family. This is not a DNA banking service. If health data analyst, guaranteed specimen storage is required, DNA banking should be considered. The Genomic Extraction Core extracted DNA. DNA Volume (microliters): ??500+ Please review the following table to determine the possible number of tests that can be added for send out testing. DNA (ul) ? Possible Send Outs (~120 ul) <100 ? Recommend Redraw 100 ?1 250 ?2 500 ?4 04/27/2023 6:34 PM PACKAGE REINSPECTOR DTL Specimen WB Whole Blood 04/27/2023 6:34 PM PACKAGE REINSPECTOR DTL Released By NATALY GERMAIN 04/27/2023 6:34 PM PACKAGE REINSPECTOR DTL Blood (Blood, Peripheral Draw) 04/24/2023 9:56 AM PACKAGE REINSPECTOR 04/24/2023 10:58 AM PACKAGE REINSPECTOR Starr Maldonado M.D. LAB GENETIC TESTIN G [facility] [address] [place] [address], [facility] DTL [address] [facility] 200 [place] [address] * Methylmalonic Acid (MMA), Quantitative (04/24/2023 9:56 AM PACKAGE REINSPECTOR) Pathologist [facility] Methylmalonic Acid, QN, S 0.20 <=0.40 nmol/mL 04/25/2023 12:35 PM PACKAGE REINSPECTOR DT Comment: ----ADDITIONAL INFORMATION---- This test was developed and its performance characteristics determined by [facility] in a manner consistent with CLIA requirements. This test has not been cleared or approved by the U.S. Food and Drug Administration. Blood (Blood, Venous) 04/24/2023 9:56 AM PACKAGE REINSPECTOR 04/24/2023 11:39 AM PACKAGE REINSPECTOR Starr Maldonado M.D. LAB BLOOD ADD-ON Performing Organization Address [facility] [address]/[facility] Co de Phone Number [facility] [address] [place] [address], [facility] DT [address] [facility] 200 [place] [address] * Vitamin E Level (04/24/2023 9:56 AM PACKAGE REINSPECTOR) A-Tocopherol, Vitamin E 12.5 5.5 - 17.0 mg/L 04/25/2023 10:59 PM PACKAGE REINSPECTOR [facility] Comment: ----ADDITIONAL INFORMATION---- This test was developed and its performance characteristics determined by [facility] in a manner consistent with CLIA requirements. This test has not been cleared or approved by the U.S. Food and Drug Administration. Blood (Blood, Venous) 04/24/2023 9:56 AM PACKAGE REINSPECTOR 04/24/2023 2:57 PM PACKAGE REINSPECTOR Starr Maldonado M.D. LAB BLOOD NON ADD- ON Performing Organization Address City/[facility] [address]/[facility] Co de Phone Number [facility] [address] [place] [address] [facility] [address] [place] [address] [place] [address] * Lactate (04/24/2023 9:56 AM PACKAGE REINSPECTOR) Lactate, P 2.1 0.5 - 2.2 mmol/L 04/24/2023 12:05 PM PACKAGE REINSPECTOR DT Blood (Blood, Venous) 04/24/2023 9:56 AM PACKAGE REINSPECTOR 04/24/2023 10:36 AM PACKAGE REINSPECTOR Starr Maldonado M.D. LAB BLOOD NON ADD- ON [facility] [address] [place] [address], [place] DTL [facility] [address] [place] [address] from Last 3 Months Care Teams Warehouse Shipping Clerk Relationship Specialty Start Date End Date Cyndee Burton APRN, C.N.P., D.N.P. [address] [place] [phone] PCP - General Family Medicine 03/12/21
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
--- OUTSIDE RECORDS SUMMARY | 2023-07-05 13:05 | XMS_ITS | Encounter Summary ---
Author Name Unknown Organization [facility] Address [address] [place] [address] Care Team Providers Care Grocery Clerk Selling Name Role Phone Yasmeen Burtonah Nola STEPHENS, C.N.P., D.N.P. Primary Ca re Provider Reason for Visit * Outpatient (Routine) - Closed Specialty Diagnoses / Procedures Referred By Contnereyda t Referred To Contact Clinical Genomics Diagnoses Ataxia Cerebellar (HCC) Starr Maldonado M.D. [address] [place] [phone] [facility] Referral ID Status Reason Start Date Expiration Date Visits Re quested Visits Authorized [id number] Closed 02/07/2023 02/07/2024 1 1 Encounter Details Date Type Department Care Team (Latest Contact Info) Description 04/18/2023 8:45 AM BATTERY HAND Clinical Support Department of Medical Genetics in [place], [place] [address] [place] [phone] Starr Maldonado M.D. [address] [place] [phone] Reshma Gilmore Ataxia Cerebellar (HCC) Social History Tobacco Use [...] Sex Assigned at Female 05/04/2023 11:55 PM BATTERY HAND Gender Identity Female 05/04/2023 11:55 PM BATTERY HAND Sexual Orientation Straight 05/04/2023 11 :55 PM BATTERY HAND documented as of this encounter Progress Notes * Reshma Gilmore - 04/18/2023 8:45 AM CST Images from the original note were not included. REFERRING PROVIDER Starr Maldonado M.D. Referral to Clinical Genomics Georgiana attended today???s pre-appointment visit to collect personal and family history. PERSONAL HISTORY: At what age was Georgiana when was the onset: 23, onset Poor coordination or unsteady gait and a tendency to stumble? Yes Difficulty with fine motor tasks, such as eating, writing or buttoning a shirt? No, does take a while Change in speech? No Involuntary cvmt-fjh-tqllh eye movements (nystagmus)? Yes Difficulty swallowing? No Tremors/spastic? No Scoliosis? Something wrong with back at Does the Georgiana have a personal history of: Defects (cleft L/P, spina bifida, congenital cardiac defect): No Development delay? No Learning issues? Yes, learning disability Seizures: No Cancer: No Any prior genetic testing? No Other personal concerns: No FAMILY HISTORY A expanded family history, was obtained from the patient and a pedigree was constructed by the Genetic Counseling Electrical Maintenance Engineer. Our risk assessment is based upon medical and family history information as provided by the patient and may change in the future should new information be obtained. Pedigree Image Are there any other family members with Similar challenges or formal diagnosis? Yes, sister The patient???s maternal ancestry is [place]; the patient???s paternal ancestry is Unknown. There isno consanguinity. PLAN Above information will be shared with the clinical team for review prior to patient's appointment. ERY HAND documented in this encounter Plan of Treatment Not on file documented as of this encounter Visit Diagnoses Diagnosis Ataxia Cerebellar (HCC) documented in this encounter Additional Health Concerns Assessment Noted Time PHQ-9 Depression Total Score: 4 02/04/20 14 10:35 AM BATTERY HAND documented as of this encounter Care Teams Grocery Clerk Selling Relationship Specialty Start Date End Date Cyndee Burton APRN, C.N.P., D.N.P. [id number] [phone] PCP - General Family Medicine 03/12/21 documented as of this encounter"
== END 2023-06-29 01:04 | disposition home or self-care (01) ==
LOC: AMB 07-05 12:59
PROVIDERS: Visit Provider Family Medicine
DX: N64.4 Mastodynia (principal)
CPT/HCPCS: A0425; A0429

== ENCOUNTER 2023-06-29 01:13 | Emergency (ER) | payer MEDICAID, SELFPAY ==
[2023-06-29 01:21] VITALS: BP 135/84; PULSE 88; RESP 16; TEMP 37.2; O2SAT 98; BMI 43.9
[2023-06-29] MEDS: ACETAMINOPHEN 500 MG TABLET 1000 MG PO (01:52)
[2023-06-29] MEDS: KETOROLAC 30 MG/ML inj IM (01:52)
--- NOTE | 2023-06-29 02:08 | ED_ITS ---
HPI - General Adult General Chief complaint: Skin/Abscess/Foreign Body Stated complaint: abscess on chest Time Seen by Provider: 06/29/23 01:27 Source: patient Mode of arrival: EMS Limitations: no limitations History of Present Illness HPI narrative: 38-year-old female presents to the emergency department for evaluation of a symptomatic tender lesion on her left under breast area. This has been present for 3 days. She reports that she was crying and her neighbors heard her. They recommended that she call an ambulance because she was in pain. She has not attempted to have this lesion looked at in urgent care or primary care provider and presents to the emergency department in the wee hours overnight. She has not tried taking Tylenol or ibuprofen for her pain. She has had hidradenitis lesions in the past including several in this exact area. She states that she has had these drained once before but other times has not required drainage. She has no fever. There is no shortness of breath. No cardiac symptoms, or GI changes. There was no trauma or injury. She has not attempted to contact her primary care provider for management. It looks as though she was referred to General surgery after her last ED visit for the same thing 6 months ago and she did not keep that follow-up. She has not been on immunosuppressant therapy for hidradenitis in the past. She has not been on prolonged antibiotic therapy for eradication either. It is clear that she hops around to primary care providers frequently making interpretation of previous management quite difficult. She reports that she is now currently seeing a provider in [place] but does not drive and would not have the ability to get there to have packing removed. I do question at this is an appropriate choice for her. Past medical history notable for hypothyroidism and cerebellar ataxia of uncertain etiology. She reports that her only home medication is levothyroxine. She is a nonsmoker. ROS notable for the skin symptoms as described above only, denies lesions in other areas or other review of systems times 12 systems. Related Data Home Medications Medication Instructions Recorded Confirmed levothyroxine 50 mcg tablet 50 mcg PO DAILY 12/28/22 12/28/22 metformin 500 mg tablet,extended 500 mg PO DAILY 12/28/22 12/28/22 release 24 hr Previous Rx's Medication Instructions Recorded clindamycin HCl 300 mg capsule 300 mg PO Q8H #15 caps 12/28/22 doxycycline hyclate 100 mg capsule 100 mg PO BID #14 caps 06/29/23 ibuprofen 600 mg tablet 600 mg PO Q6H PRN #20 tabs 06/29/23 Allergies Allergy/AdvReac Type Severity Reaction Status Date / Time Sulfa (Sulfonamide Allergy Mild Hives Verified 02/27/22 23:35 Antibiotics) [facility] Medical History Anxiety ?F41.9 - Anxiety disorder, unspecified (ICD-10) Obesity (BMI 30-39.9) ?E66.9 - Obesity, unspecified (ICD-10) Insomnia ?G47.00 - Insomnia, unspecified (ICD-10) Cervical dysplasia ?N87.9 - Dysplasia of cervix uteri, unspecified (ICD-10) Hypertriglyceridemia ?E78.1 - Pure hyperglyceridemia (ICD-10) Herpes genitalis ?A60.00 - Herpesviral infection of urogenital system, unspecified (ICD-10) Developmental disorder ?F89 - Unspecified disorder of psychological development (ICD-10) Chronic ankle pain ?M25.579 - Pain in unspecified ankle and joints of unspecified foot (ICD-10) ?G89.29 - Other chronic pain (ICD-10) PTSD (post-traumatic stress disorder) ?F43.10 - Post-traumatic stress disorder, unspecified (ICD-10) Depression ?F32.A - Depression, unspecified (ICD-10) Subclinical hypothyroidism ?E03.8 - Other specified hypothyroidism (ICD-10) Surgical History H/O tubal ligation ?Z98.51 - Tubal ligation status (ICD-10) Hx of cholecystectomy ?Z90.49 - Acquired absence of other specified parts of digestive tract (ICD- 10) Social History Smoking Status: Never smoker How often do you have a drink containing alcohol: never AUDIT-C Alcohol total score: 0 Non-prescribed substance use: denies use Exam Const: Vital Signs, click to edit/add: Vital Signs - 24 hr 06/29/23 01:21 Temperature 99 F Pulse Rate [Pulse Oximeter] 88 Respiratory Rate 16 Blood Pressure [Ri ght Upper Arm] 135/84 Pulse Oximetry 98 Oxygen Delivery Me thod Room Air Documenting provider has reviewed patient's vital signs: yes Other: Cries out frequently in pain and is difficult to console. 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 HENMT: Common normals: normocephalic Head and scalp: normocephalic Face and sinus: normal facial exam Mouth: oral and palatal mucosa normal Eye: Common normals: conjunctivae normal General eye: normal appearance of both eyes Conjunctiva: conjunctiva(e) normal Neck & C-Spine: Common normals: no lymphadenopathy Chest: Other: Scarring of both breasts consistent with previous hidradenitis, left greater than right. Nipples appear normal. Scarring in both axilla as well. Other than the lesion under the left breast, chest wall appears normal without other affected lesions. Underneath the left breast is a 1.5 cm fluctuant area that is tender, slightly red but is not warm to the touch. She does not tolerate manipulation of the area. No active drainage. Resp: Common normals: normal respiratory effort and no use of accessory muscles Effort & inspection: able to speak in complete sentences Cardio: Common normals: regular rate, regular rhythm, S1 normal heart sound, S2 normal heart sound and no murmurs Rate: regular rate Rhythm: regular rhythm Heart sounds: S1 normal and S2 normal GI: Common normals: Normal to inspection, nondistended, normoactive bowel sounds present and no masses Neuro: Speech: speech normal Motor exam: no tremor noted and no movement abnormalities noted Psych: Insight: fair Judgement: fair Other: Anxious, not particularly cooperative. Skin: Narrative: 1.5 cm fluctuant area with surrounding 3 cm area of redness under left breast as described above. Scarring consistent with hidradenitis in multiple places, otherwise no active lesions. Course Course ED Course: Patient was given a 1000 mg of Tylenol and 30 mg of IM Toradol this was allowed to set in. It did not seem to improve her pain. We discussed the risks and benefits of incision and drainage. Since there is a small fluctuant area, I counseled her that this would be in her best interest. We could also culture the fluid in ensure that there was not a resistant infection. She agreed to this. Procedure: Incision and drainage. Verbal consent was obtained. I elected to have the nurse in the room to supervise. Area was injected with 5 mL of 1% lidocaine with epinephrine. This had excellent blanching. I did allow it to set up for a full 6 minutes prior to attempting any procedure. Area was cleansed with Betadine x3. She did not tolerate the Betadine swabs. I counseled patient that if she wants me to stop, all she has to do is stay so but I do recommend that we proceed with drainage, she agrees. Eleven blade was used to start to gently dissect in the center of the fluctuant area. There is quite a bit of scar tissue so I went carefully and very slowly. Once I pierced through the outer layer of skin, she asked me to stop. I let her know that I had not yet completed the drainage and would need a couple more passes carefully with the scalpel to get into the abscess area. She requested that I stop, therefore this was done. No fluid was able to be extracted. The incision was only about 4 mm in size. This was covered with antibiotic ointment and Band- Aid. She was screaming even with putting on Band-Aids. Counseled patient that oral antibiotics may be sufficient, but time will tell. She likely would have had better pain control had she been able to tolerate a bedside drainage. She is not exhibiting any fever or signs of systemic illness, I do think starting with oral antibiotics is reasonable. She is given a dose of doxycycline 100 mg p.o. x1 here in the ED and will be started on a twice daily course for 7 days. She is counseled to cover the small incision with antibiotic ointment and a Band-Aid, changing twice daily for the next few days. She is to make a follow-up appointment with her primary care provider in 24 hours to recheck how things are going and determine if she needs a referral for incision and drainage. Counseled that this may need to be performed under sedation due to her anxiety. She is given a prescription for ibuprofen 600 mg as needed for pain and counseled on Tylenol. Alarm symptoms reviewed that would warrant ED presentation. Written instructions provided Vital Signs Vital signs: Initial Vital Signs Temperature 99 F 06/29/23 01:21 Temperature Source Temporal Artery Scan 06/29/23 01:21 Pulse Rate 88 06/29/23 01:21 Respiratory Rate 16 06/29/23 01:21 Blood Pressure 135/84 06/29/23 01:21 Blood Pressure Mean 101 06/29/23 01:21 Blood Pressure Position Supine 06/29/23 01:21 Pulse Oximetry 98 06/29/23 01:21 Oxygen Delivery Method Room Air 06/29/23 01:21 Vital Signs Temperature 99 F 06/29/23 01:21 Pulse Rate 88 06/29/23 01:21 Respiratory Rate 16 06/29/23 01:21 Blood Pressure 135/84 06/29/23 01:21 Pulse Oximetry 98 06/29/23 01:21 Oxygen Delivery Method Room Air 06/29/23 01:21 Temperature 99 F 06/29/23 01:21 Pulse Rate 88 06/29/23 01:21 Respiratory Rate 16 06/29/23 01:21 Blood Pressure 135/84 06/29/23 01:21 Pulse Oximetry 98 06/29/23 01:21 Oxygen Delivery Method Room Air 06/29/23 01:21 Medications Administered Medications: Generic Name Dose Route Start Last Admin Trade Name Freq PRN Reason Stop Dose Admin Acetaminophen 1,000 mg 06/29/23 01:40 06/29/23 01:52 Acetaminophen 500 Mg Tablet PO 06/29/23 01:41 1,000 mg ONCE ONE Administration Ketorolac Tromethamine 30 mg 06/29/23 01:40 06/29/23 01:52 Ketorolac 30 Mg/Ml Inj IM 06/29/23 01:41 30 mg ONCE ONE Administration Discharge Plan Discharge Clinical Impression: Hidradenitis Patient Disposition: Home, Self-Care Condition: Stable Instructions: Hidradenitis Suppurativa (ED) Additional Instructions: As we discussed, you asked to stop the procedure before I could cut through the scar tissue to get into the small abscess. Of course, we respected your wishes. The small cut was covered with antibiotic ointment and a Band-Aid. Apply antibiotic ointment and cover with a fresh Band-Aid twice daily until healed. Since the cut is not deep, this will only take a couple of days. Oral antibiotics may be enough on its own but things certainly would heal faster with appropriate drainage. We have started you on an oral antibiotic, doxycycline. Take this twice daily for the next 48 hours and if things are not starting to improve, make a follow-up appointment with your primary care provider. They may need to refer you to a general surgeon or have the drainage performed under some sedation. There are no signs of systemic illness or an absolute medical need to do that today. We offered drainage to allow for faster healing and because it often will provide better pain control. I have sent a prescription for 600 mg ibuprofen tablets. You may take 1 of these every 6 hours for pain. Apply ice packs under the breast as needed. There is no reason that you cannot do all of your typical activities. In the future, being seen in urgent care or primary care clinic right away when you 1st feel the lesion developed would help tremendously as you could be placed on oral antibiotics sooner, bypassing the need to come to an emergency room by ambulance in the middle of the night. You may also use Tylenol 1000 mg every 6 hours for pain. There are also long-term treatment options for hidradenitis that you may be a candidate for. These would need to be further discussed with your primary care provider when you do not have an active lesion. You will need to schedule an appointment with her primary care provider in 24-48 hours for recheck. Since you see a provider outside of our health system, you will need to arrange this. Activity Level: No Restrictions Discharge Diet: Regular Prescriptions: New doxycycline hyclate 100 mg capsule 100 mg PO BID Qty: 14 0RF ibuprofen 600 mg tablet 600 mg PO Q6H PRNQty: 20 0RF No Action levothyroxine 50 mcg tablet 50 mcg PO DAILY metformin 500 mg tablet extended release 24 hr 500 mg PO DAILY clindamycin HCl 300 mg capsule 300 mg PO Q8H Qty: 15 0RF Follow Up/Referrals: Angela Garrett MD [Staff Physician] - Stand Alone Forms: [employer] Info Instructions
== END 2023-06-29 02:22 | disposition home or self-care (01) ==
LOC: ED 02:17
PROVIDERS: Emergency Provider Family Medicine
DX: L73.2 Hidradenitis suppurativa (principal); Z53.29 Procedure and treatment not carried out because of patient's decision for other reasons
CPT/HCPCS: 10060; 99283; A9270; J1885

== ENCOUNTER 2023-09-26 08:45 | Outpatient (CLI) | payer MEDICAID, SELFPAY ==
--- OUTSIDE RECORDS SUMMARY | 2023-10-01 07:43 | XMS_ITS | Clinical Summary ---
Author Organization [facility] Address [address] [place] [address] Care Team Providers Care Crime Scene Evidence Technician Name Role Phone Cyndee Burton APRN, C.N.P., D.N.P. Primary Ca re Provider Source Comments Patient records contain information from all sites at [facility]. For routine questions regarding patient records, call [phone] during business hours, M-F 8:00 AM - 5:00 PM Central Time. Record requests for emergency care only can be directed to [phone] at any time.[facility] Allergies Active Allergy Reactions Criticality Noted Date [...] Overview: date unknown [facility] Tile Classifier: Blossom Leone Insomnia 09/18/2012 Dysthymia 08/31/2012 Overview: Dysthymic Disorder Herpes Genitalis 04/12/2012 Hypertriglyceridemia 01/03/2012 Hidradenitis Suppurativa 08/04/2010 Overview: date unknown Encounters Date Type Department Care Team Description 08/01/2023 Orders Only [facility] PCP [facility] MNT Cyndee Burton, BILL ADJUSTER, C.N.P., D.N.P. Hypothyroidism from Last 3 Months [...] 0.6 oz pur e alcohol) 1-2x week [facility] Utilities Answer Date Recorded In the [...] your living situation today? I have a [facility] place to live 05/04/2023 Sex and Gender Information Value Date Recorded Sex Assigned at Female 05/04/2023 11:55 PM ROBOT TECHNICIAN Gender Identity Female 05/04/2023 11:55 PM ROBOT TECHNICIAN Sexual Orientation Straight 05/04/2023 11 :55 PM ROBOT TECHNICIAN Last Filed Vital Signs Vital Sign Reading Time Taken Comments Blood Pressure 131/82 04/05/2023 8:08 AM ROBOT TECHNICIAN Pulse 76 04/05/2023 8:08 AM ROBOT TECHNICIAN Temperature 36.8 ??C (98.2 ??F) 10/10/2021 7:12 PM CD T Respiratory Rate 19 10/10/2021 9:00 PM CDT Oxygen Saturation 95% 10/10/2021 9:00 PM CDT Inhaled Oxygen Concentration - - Weight 93.2 kg (205 lb 5.7 oz) 04/05/2023 8:08 A M ROBOT TECHNICIAN Height 149.7 cm (4' 10.94) 04/05/2023 8:[address] Body Mass Index 41.57 04/05/2023 8:08 AM ROBOT TECHNICIAN Plan of Treatment Health Maintenance Due Date Last Done Comments Hepatitis C Screening 1985 COVID-19 Vaccine ( season) 2022 02/21/2022, 03/08/2021, 08/14/2020, Additional history exists Depression Screening (Annual PHQ-2) 03/27/2023 Thyroid Stimulating Hormone (TSH) test for thyroid function 08/19/2023 08/18/2022, 06/08/2022, 03/08/2021, Additional history exists Influenza Vaccine (#1) 2023 , 02/21/2022, 01/18/2021, Additional history exists Lipid (Cholesterol) Screening 02/07/2024 02/06/2023, 03/08/2021, 04/30/2013, Additional history exists Cervical Cancer Screening 03/08/20262020, 03/08/2021, 09/15/2015, Additional history exists DTaP,Tdap,and Td Vaccines (9 - Td or Tdap) 01/18/2031 01/18/2021, 10/20/2008, 09/24/2003, Additional history exists Hepatitis B Vaccines Completed 02/20/2002, 11/21/2000, 11/21/2000, Additional history exists HPV Vaccines Completed 12/20/2011, 04/28, 03/08/2011 HIV Screening Completed 04/10/2012 Pneumococcal vaccine (0-64 years) Aged Out No longer eligible based on patient's age to complete this topic Procedures Procedure Name Priority Date/Time Associated Diagnosis Comments EXTI LIPID PANEL W REFLEX MEASURED LDL Routine 02/06/2023 4:16 PM ROBOT TECHNICIAN EXTI THYROID-STIMULATING HORMONE-SENSITIVE (S-TSH), S Routine 08/18/2022 2:32 PM CDT HPV WITH GENOTYPING, PCR, THINPREP Routine 03/08/2021 5:03 PM ROBOT TECHNICIAN HXZZORDERS Routine 04/10/2012 3:55 PM ROBOT TECHNICIAN from Last 3 Months or Most Recently Relevant to Health Maintenance Results * HPV with Genotyping, PCR, ThinPrep (03/08/2021 5:03 PM ROBOT TECHNICIAN) Specimen Source Thin Prep Vial, Cervix/Endoc ervix 03/10/2021 3:36 PM ROBOT TECHNICIAN DTL HPV High Risk type 16, PCR Negative Negative 03/10/2021 3:36 PM ROBOT TECHNICIAN DTL HPV High Risk type 18, PCR Negative Negative 03/10/2021 3:36 PM ROBOT TECHNICIAN DTL HPV other High Risk types, PCR Negative Negative 03/10/2021 3:36 PM ROBOT TECHNICIAN DTL Comment: The following Other High Risk HPV types were not detected: 31, 33, 35, 39, 45, 51, 52, 56, 58, 59, 66, and 68 This test was ordered in the context of a [facility] CHRISTIAN SCIENCE PRACTITIONER Cytology case; this result should be interpreted within the context of the CHRISTIAN SCIENCE PRACTITIONER cytology report. Varies 03/08/2021 5:03 PM ROBOT TECHNICIAN 03/09/2021 10:54 AM ROBOT TECHNICIAN Narrative [facility] - 03/10/2021 3:36 PM ROBOT TECHNICIAN Specimen Information: Specimen ID: [id number] Specimen Type: Varies Specimen Collection Start Date: 03/08/2021 ??5:03 PM Specimen Received Date: 03/09/2021 10:54 AM Specimen ID: [id number] Specimen Type: Varies Sue Martinez LAB MICROBIOLOGY - [facility] ORDERABLES [facility] [address] [place] [address], [place] DTL [facility][note 3] [address] [place] [address] * HXZZORDERS (04/10/2012 3:55 PM ROBOT TECHNICIAN) HIV-1/-2 Antibody Negative Negative POWERCHART Comment: Negative [...] is negative. Testing is performed using the [employer] Anti-HIV 1+2 chemiluminescence immunoassay. Test Performed by: [facility] [address] [place] [address] Batch Unit Treater: Jimmy Link III, M.D. Blood 04/10/2012 3:55 PM ROBOT TECHNICIAN Charity Vasquez APRN, C.N.P., D.N.P. LAB HISTORICAL ORDERS POWERCHART from Last 3 Months or Most Recently Relevant to Health Maintenance Care Teams Crime Scene Evidence Technician Relationship Specialty Start Date End Date Cyndee Burton APRN, C.N.P., D.N.P. [address] [phone] PCP - General Family Medicine 03/12/21
--- OUTSIDE RECORDS SUMMARY | 2023-10-01 07:43 | XMS_ITS | Encounter Summary ---
Author Organization [facility] Address [address] [place] [address] Care Team Providers Care Newsroom Intern Name Role Phone Cyndee Burton APRN, C.N.P., D.N.P. Primary Ca re Provider Encounter Details Date Type Department Care Team (Late st Contact Info) Description 08/01/2023 Orders Only [facility] PCP TH MNT Cyndee Burton APRN, C.N.P., D.N.P. [address] [address] Hypothyroidism Social History Tobacco Use Types Packs/Day Years Used Date Smoking Tobacco: Never Passive Smoke Exposure: Current Smokeless Tobacco: Never Passive Exposure Comments:Cu rrent and past exposure. Alcohol Use Standard Drinks/Week Comments Yes 0 (1 standard drink = 0.6 oz pur e alcohol) 1-2x week [facility] Utilities Answer Date Recorded In the past 12 months has [employer], gas, oil, or water [employer] threatened to shut off services in your [...] your living situation today? I have a [facility] place to live 05/04/2023 Sex and Gender Information Value Date Recorded Sex Assigned at Female 05/04/2023 11:55 PM CERTIFIED LACTATION COUNSELOR Gender Identity Female 05/04/2023 11:55 PM CERTIFIED LACTATION COUNSELOR Sexual Orientation Straight 05/04/2023 11 :55 PM CERTIFIED LACTATION COUNSELOR documented as of this encounter Plan of Treatment Scheduled Orders Name Type Priority Associated Diagnoses Orde r Schedule S-TSH (Thyroid-Stimulating Hormone - Sensitive) Lab Routine Hypothyroidism Expected: 08/15/2023, Expires: 01/28/2024 documented as of this encounter Visit Diagnoses Diagnosis Hypothyroidism documented in this encounter Additional Health Concerns Assessment Noted Time PHQ-9 Depression Total Score: 4 02/04/20 14 10:35 AM CERTIFIED LACTATION COUNSELOR documented as of this encounter Care Teams Newsroom Intern Relationship Specialty Start Date End Date Cyndee Burton APRN, C.N.P., D.N.P. [address] [phone] PCP - General Family Medicine 03/12/21 documented as of this encounter
--- OUTSIDE RECORDS SUMMARY | 2023-10-01 07:43 | XMS_ITS | Referral Summary ---
Author Organization [facility] Address [address] [place] [address] Care Team Providers Care Application Security Developer Name Role Phone Cyndee Burton APRN, C.N.P., D.N.P. Primary Ca re Provider Source Comments Patient records contain information from all sites at [facility]. For routine questions regarding patient records, call [phone] during business hours, M-F 8:00 AM - 5:00 PM Central Time. Record requests for emergency care only can be directed to [phone] at any time.[facility] Encounters Date Type Department Care Team Description [...] Development In Childhood 09/18/2012 Overview: date unknown [facility] Verification Engineer: Blossom Leone Insomnia 09/18/2012 Dysthymia 08/31/2012 Overview: [...] Recorded In the past 12 months has [employer], gas, oil, or water [employer] threatened to shut off services in your [...] your living situation today? I have a [facility] place to live 05/04/2023 Sex and Gender Information Value Date Recorded Sex Assigned at Female 05/04/2023 11:55 PM MENTAL HEALTH COUNSELOR Gender Identity Female 05/04/2023 11:55 PM MENTAL HEALTH COUNSELOR Sexual Orientation Straight 05/04/2023 11 :55 PM MENTAL HEALTH COUNSELOR Last Filed Vital Signs Vital Sign Reading Time Taken Comments Blood Pressure 131/82 04/05/2023 8:08 AM MENTAL HEALTH COUNSELOR Pulse 76 04/05/2023 8:08 AM MENTAL HEALTH COUNSELOR Temperature 36.8 ??C (98.2 ??F) 10/10/2021 7:12 PM CD T Respiratory Rate 19 10/10/2021 9:00 PM CDT Oxygen Saturation 95% 10/10/2021 9:00 PM CDT Inhaled Oxygen Concentration - - Weight 93.2 kg (205 lb 5.7 oz) 04/05/2023 8:08 A M MENTAL HEALTH COUNSELOR Height 149.7 cm (4' 10.94) 04/05/2023 8:[address] Body Mass Index 41.57 04/05/2023 8:08 AM MENTAL HEALTH COUNSELOR Plan of Treatment Not on file Procedures Procedure Name Priority Date/Time Associated Diagnosis Comments EXTI LIPID PANEL W REFLEX MEASURED LDL Routine 02/06/2023 4:16 PM MENTAL HEALTH COUNSELOR EXTI THYROID-STIMULATING HORMONE-SENSITIVE (S-TSH), S Routine 08/18/2022 2:32 PM CDT HPV WITH GENOTYPING, PCR, THINPREP Routine 03/08/2021 5:03 PM MENTAL HEALTH COUNSELOR HXZZORDERS Routine 04/10/2012 3:55 PM MENTAL HEALTH COUNSELOR from Last 3 Months or Most Recently Relevant to Health Maintenance Results * HPV with Genotyping, PCR, ThinPrep (03/08/2021 5:03 PM MENTAL HEALTH COUNSELOR) Specimen Source Thin Prep Vial, Cervix/Endoc ervix 03/10/2021 3:36 PM MENTAL HEALTH COUNSELOR DTL HPV High Risk type 16, PCR Negative Negative 03/10/2021 3:36 PM MENTAL HEALTH COUNSELOR DTL HPV High Risk type 18, PCR Negative Negative 03/10/2021 3:36 PM MENTAL HEALTH COUNSELOR DTL HPV other High Risk types, PCR Negative Negative 03/10/2021 3:36 PM MENTAL HEALTH COUNSELOR DTL Comment: The following Other High Risk HPV types were not detected: 31, 33, 35, 39, 45, 51, 52, 56, 58, 59, 66, and 68 This test was ordered in the context of a [facility] DRILLING MACHINE RUNNER Cytology case; this result should be interpreted within the context of the DRILLING MACHINE RUNNER cytology report. Varies 03/08/2021 5:03 PM MENTAL HEALTH COUNSELOR 03/09/2021 10:54 AM MENTAL HEALTH COUNSELOR Narrative [facility] - 03/10/2021 3:36 PM MENTAL HEALTH COUNSELOR Specimen Information: Specimen ID: [id number] Specimen Type: Varies Specimen Collection Start Date: 03/08/2021 ??5:03 PM Specimen Received Date: 03/09/2021 10:54 AM Specimen ID: [id number] Specimen Type: Varies Sue Martinez LAB MICROBIOLOGY - G ENERAL ORDERABLES [facility] [address] [place], [place] [address] DTL [facility] [address] [place] [address] * HXZZORDERS (04/10/2012 3:55 PM MENTAL HEALTH COUNSELOR) HIV-1/-2 Antibody Negative Negative POWERCHART Comment: Negative [...] is negative. Testing is performed using the [employer] Anti-HIV 1+2 chemiluminescence immunoassay. Test Performed by: [facility] [address] [place] [address] Pure Pak Machine Operator: Jimmy Link III, M.D. Blood 04/10/2012 3:55 PM MENTAL HEALTH COUNSELOR Charity Vasquez APRN, C.N.P., D.N.P. LAB HISTORICAL ORDERS POWERCHART from Last 3 Months or Most Recently Relevant to Health Maintenance Care Teams Application Security Developer Relationship Specialty Start Date End Date Cyndee Burton APRN, C.N.P., D.N.P. [address] [phone] PCP - General Family Medicine 03/12/21
--- OUTSIDE RECORDS SUMMARY | 2023-10-01 07:43 | XMS_ITS | Encounter Summary ---
Author Organization [facility] Address [address] [place] [address] Care Team Providers Care Elect Equip Maint Eng Name Role Phone Cyndee Burton APRN, C.N.P., D.N.P. Primary Ca re Provider Reason for Visit * Reason Onset Date Comments Neuro [facility] WGS : AC 05/09/2023 Encounter Details Date Type Department Care Team (Latest Contact Info) Description 05/09/2023 Clinical Communication Department of Medical Genetics in [place], [place] [address] [place] [address] Ángel Roman [address] [place] [phone] Neuro [facility] WGS : AC Social History Tobacco Use Types Packs/Day Years Used Date Smoking Tobacco: Never Passive Smoke Exposure: Current Smokeless Tobacco: Never Passive Exposure Comments:Cu rrent and past exposure. Alcohol Use Standard Drinks/Week Comments Yes 0 (1 standard drink = 0.6 oz pur e alcohol) 1-2x week [employer] Utilities Answer Date Recorded In the past 12 months has [employer], gas, oil, or water [employer] threatened to shut off services in your [...] your living situation today? I have a [facility] place to live 05/04/2023 Sex and Gender Information Value Date Recorded Sex Assigned at Female 05/04/2023 11:55 PM SERVICE WRITER ADVISOR Gender Identity Female 05/04/2023 11:55 PM SERVICE WRITER ADVISOR Sexual Orientation Straight 05/04/2023 11 :55 PM SERVICE WRITER ADVISOR documented as of this encounter Miscellaneous Notes * Telephone Encounter - Ángel Roman - 07/11/2023 2:42 PM CDT Testing in process * Telephone Encounter - Ángel Roman - 06/29/2023 11:29 AM CDT Sample received by [employer]; BI in process * Telephone Encounter - Ángel Roman - 06/14/2023 9:54 AM CDT Sent POM checking in * Telephone Encounter - Ángel Roman - 05/24/2023 1:55 PM CST Pt responded with mom's information, pending decision by sister. ICE WRITER ADVISOR * Telephone Encounter - Ángel Roman - 05/23/2023 10:13 AM CST ----- Message from Ailyn Vaca Cera, M.S. [facility] sent at 05/22/2023 12:01 PM SERVICE WRITER ADVISOR ----- Date: 05/22/23 Lab: [facility] Testing: WGS GC: Ailyn Reyes CGC MD: Dr. Chuyita Wood Possible Participant Information if Known: Mother: Pending Other: Sister, pending Sample(s): Cryo Phenotype completed? Yes Consent form completed? Yes Epic order placed? Yes Secondary Findings : Yes Additional notes: My note, Dr. Wood's notes, pedigree, Dr. Maldonado's (04/05/2023), MR Brain (12/12), FXN testing (labs) ICE WRITER ADVISOR documented in this encounter Plan of Treatment Not on file documented as of this encounter Visit Diagnoses Not on filedocumented in this encounter Additional Health Concerns Assessment Noted Time PHQ-9 Depression Total Score: 4 02/04/20 14 10:35 AM SERVICE WRITER ADVISOR documented as of this encounter Care Teams Elect Equip Maint Eng Relationship Specialty Start Date End Date Cyndee Burton APRN, C.N.P., D.N.P. [address] [phone] PCP - General Family Medicine 03/12/21 documented as of this encounter
--- OUTSIDE RECORDS SUMMARY | 2023-10-01 07:43 | XMS_ITS ---
Author Organization [facility] Address [address] [place] [address] Support Name Relationship Address Aury Cartwright Title Emergency Contact Unknown [phone] Care Team Providers Care [address] Magistrate Name Role Phone Unavailable Unavailable Unavailable Surgery Details Not on file Complications Check Surgery Details section. Procedure Estimated Blood Loss Check Surgery Details section. Procedure Findings Check Surgery Details section. Procedure Specimens Taken Check Surgery Details section.
--- OUTSIDE RECORDS SUMMARY | 2023-10-01 07:43 | XMS_ITS | Clinical Summary ---
Author Organization [facility] Address [place], [place] [address] Care Team Providers Care Monument Erector Name Role Phone Emile Myers MD Unavailable [phone] Rodrigo Fox MD Primary Care Provider Allergies [...] 09/18/2012 Developmental disorder 09/18/2012 Overview: date unknown [facility] Trimming Operator: Blossom Leone Herpes genitalis 04/12/2012 Hypertriglyceridemia 01/03/2012 Encounters Date Type Department Care Team Description 09/01/2023 Refill [facility] [address] [place] [address] Rodrigo Fox MD Refill Request (Levothyroxine) 08/23/2023 Refill [facility] [address] [place] [address] Rodrigo Fox MD Refill Request (Metformin) 07/11/2023 Telephone [facility] [address] [place] [address] Rodrigo Fox MD from Last 3 Months Immunizations [...] 2017 36w 2d M Vag Living Delivery Location:[place] Last Filed Vital Signs Vital Sign Reading Time Taken Comments Blood Pressure 100/70 02/06/2023 3:30 PM DIABETES MANAGER Pulse 80 02/06/2023 3:30 PM DIABETES MANAGER Temperature 36.8 ??C (98.3 ??F) 12/24/2021 11:25 AM C DT Respiratory Rate 20 12/24/2021 11:25 AM CDT Oxygen Saturation 94% 01/18/2023 1:01 PM CDT Inhaled Oxygen Concentration - - Weight 93.7 kg (206 lb 9.6 oz) 02/06/2023 3:30 P M DIABETES MANAGER Height 150 cm (4' 11.06) 02/06/2023 3:30 PM DIABETES MANAGER Body Mass Index 41.65 02/06/2023 3:30 PM DIABETES MANAGER Plan of Treatment Upcoming Encounters Date Type Department Care Team (Late st Contact Info) Description 10/06/2023 1:00 PM CDT Office Visit [facility] [address] [place] [phone] [place] [address] [place], [place] [phone] Health Maintenance Due Date Last Done Comments [...] Comments ANTI HCV Routine 02/06/2023 4:16 PM DIABETES MANAGER Need for hepatitis C screening test from Last 3 Months or Most Recently Relevant to Health Maintenance Results * ANTI HCV (02/06/2023 4:16 PM DIABETES MANAGER) HEPATITIS C ANTIBODY Non-Reacti ve Non-React lucille 02/06/2023 10:57 PM DIABETES MANAGER [facility] [employer] [facility] Comment:Please note, per www .CDC.gov: If a patient is known to be at high risk of HCV infection, or is symptomatic, and the physician's suspicion of HCV infection is high, HCV RNA testing is often employed and is of diagnostic value, even after an initial negative anti-HCV test result. Blood BLOOD SPECIMEN / Unknown Venipuncture / Unknown 02/06/2023 4:16 PM DIABETES MANAGER 02/06/2023 4:18 PM DIABETES MANAGER Rodrigo Fox MD SEND OUTS [facility] [employer] [facility] [address] [place] [address], from Last 3 Months or Most Recently Relevant to Health Maintenance Care Teams Monument Erector Relationship Specialty [place] [address] [place] [address] PCP - General Family Practice 02/06/23 Emile Myers MD [address] [place] [address] Family Practice 12/24/21
== END 2023-09-26 08:46 | disposition home or self-care (01) ==
PROVIDERS: Visit Provider Emergency Medicine
DX: S99.912A Unspecified injury of left ankle, initial encounter (principal); W08.XXXA Fall from other furniture, initial encounter; Y92.008 Other place in unspecified non-institutional (private) residence as the place of occurrence of the external cause
CPT/HCPCS: A0425; A0427

== ENCOUNTER 2023-09-26 09:22 | Emergency (ER) | payer MEDICAID, SELFPAY ==
[2023-09-26 09:30] VITALS: BP 148/86; PULSE 83; RESP 18; TEMP 36.7; O2SAT 100; BMI 41.8
--- NOTE | 2023-09-26 09:40 | CRLHL7_ITS ---
For Patients: As a result of the Century Cures Act, medical imaging exams and procedure reports are released immediately into your electronic medical record. You may view this report before your referring provider. If you have questions, please contact your health care provider. Indication: Injury Technique: Three views of the left ankle. Comparison: None. Findings: Mildly displaced distal fibular fracture. Possible minimally displaced posterior malleolar fracture. Moderate lower extremity edema. Trace tibiotalar joint effusion. Impression: Mildly displaced distal fibular fracture. Possible minimally displaced posterior malleolar fracture. Dictated by Noel Jackson MD @ 09/26/2023 10:23:21 AM (Electronically Signed)
--- NOTE | 2023-09-26 09:41 | CRLHL7_ITS ---
For Patients: As a result of the Cures Act, medical imaging exams and procedure reports are released immediately into your electronic medical record. You may view this report before your referring provider. If you have questions, please contact your health care provider. Indication: Injury Technique: Three views of the left foot. Comparison: None. Findings: Moderate soft tissue swelling of the forefoot. No acute displaced fracture or malalignment. Impression: No acute displaced fracture or malalignment. Dictated by Noel Jackson MD @ 09/26/2023 10:24:26 AM (Electronically Signed)
--- NOTE | 2023-09-26 09:44 | ED.GENADULT ---
HPI - General Adult General Date Seen: 09/26/23 Chief complaint: Extremity Pain/Injury, Lower Stated complaint: fall,ankle pain Time Seen by Provider: 09/26/23 09:36 Source: patient Mode of arrival: EMS Limitations: no limitations History of Present Illness HPI narrative: Patient is a 38-year-old woman who comes in by ambulance after hurting her left ankle. She stepped out of bed and says she heard a crack and now has difficulty weight-bearing. No other injuries or complaints. Related Data Home Medications ?Medication ?Instructions ?Recorded ?Confirmed levothyroxine 50 mcg tablet 50 mcg PO DAILY 12/28/22 12/28/22 metformin 500 mg tablet,extended 500 mg PO DAILY 12/28/22 12/28/22 release 24 hr Previous Rx's ?Medication ?Instructions ?Recorded clindamycin HCl 300 mg capsule 300 mg PO Q8H #15 caps 12/28/22 doxycycline hyclate 100 mg capsule 100 mg PO BID #14 caps 06/29/23 ibuprofen 600 mg tablet 600 mg PO Q6H PRN #20 tabs 06/29/23 Allergies Allergy/AdvReac Type Severity Reaction Status Date / Time Sulfa (Sulfonamide Allergy Mild Hives Verified 02/27/22 23:35 Antibiotics) [facility] Medical History Anxiety ?F41.9 - Anxiety disorder, unspecified (ICD-10) Obesity (BMI 30-39.9) ?E66.9 - Obesity, unspecified (ICD-10) Insomnia ?G47.00 - Insomnia, unspecified (ICD-10) Cervical dysplasia ?N87.9 - Dysplasia of cervix uteri, unspecified (ICD-10) Hypertriglyceridemia ?E78.1 - Pure hyperglyceridemia (ICD-10) Herpes genitalis ?A60.00 - Herpesviral infection of urogenital system, unspecified (ICD-10) Developmental disorder ?F89 - Unspecified disorder of psychological development (ICD-10) Chronic ankle pain ?M25.579 - Pain in unspecified ankle and joints of unspecified foot (ICD-10) ?G89.29 - Other chronic pain (ICD-10) PTSD (post-traumatic stress disorder) ?F43.10 - Post-traumatic stress disorder, unspecified (ICD-10) Depression ?F32.A - Depression, unspecified (ICD-10) Subclinical hypothyroidism ?E03.8 - Other specified hypothyroidism (ICD-10) Surgical History H/O tubal ligation ?Z98.51 - Tubal ligation status (ICD-10) Hx of cholecystectomy ?Z90.49 - Acquired absence of other specified parts of digestive tract (ICD-10) Social History Smoking Status: Never smoker How often do you have a drink containing alcohol: never How often do you have six or more drinks on one occasion: Never AUDIT-C Alcohol total score: 0 Non-prescribed substance use: denies use service: No Exam Narrative: Exam Narrative: Vital signs reviewed In general, alert, well-appearing woman. Overweight. Extremities: The left ankle is normal in appearance with no obvious deformity. She has tenderness diffusely throughout the ankle and foot. Skin: Warm dry well perfused. Const: Vital Signs, click to edit/add: Vital Signs - 24 hr 09/26/23 09:30 Temperature 98.0 F Pulse Rate [Pulse Oximeter] 83 Respiratory Rate 18 Blood Pressure [Ri ght Upper Arm] 148/86 H Pulse Oximetry 100 Oxygen Delivery Me thod Room Air Documenting provider has reviewed patient's vital signs: yes Course Course ED Course: X-rays of the left ankle and foot were obtained. Foot appears negative by my review. On the ankle, there is a distal fibular fracture, question of a posterior malleolar fracture, read as following by Radiology:Findings: Mildly displaced distal fibular fracture. Possible minimally displaced posterior malleolar fracture. Moderate lower extremity edema. Trace tibiotalar joint effusion. Impression: Mildly displaced distal fibular fracture. Possible minimally displaced posterior malleolar fracture. I placed a U splint using Orthoglass and Dominick wraps. She says she cannot use crutches but does have a walker at home. Her mother came to pick her up. She declined need for pain medication. Ibuprofen or Tylenol as needed, orthopedic follow-up this week for determination of definitive treatment. Minimize weight-bearing. Elevate as much as able. Ice. Vital Signs Vital signs: Initial Vital Signs Temperature 98.0 F 09/26/23 09:30 Temperature Source Temporal Artery Scan 07/02/24 09:30 Pulse Rate 83 09/26/23 09:30 Respiratory Rate 18 09/26/23 09:30 Blood Pressure 148/86 H 09/26/23 09:30 Blood Pressure Mean 106 H 09/26/23 09:30 Pulse Oximetry 100 09/26/23 09:30 Oxygen Delivery Method Room Air 09/26/23 09:30 Vital Signs Temperature 98.0 F 09/26/23 09:30 Pulse Rate 83 09/26/23 09:30 Respiratory Rate 18 09/26/23 09:30 Blood Pressure 148/86 H 09/26/23 09:30 Pulse Oximetry 100 09/26/23 09:30 Oxygen Delivery Method Room Air 09/26/23 09:30 Temperature 98.0 F 09/26/23 09:30 Pulse Rate 83 09/26/23 09:30 Respiratory Rate 18 09/26/23 09:30 Blood Pressure 148/86 H 09/26/23 09:30 Pulse Oximetry 100 09/26/23 09:30 Oxygen Delivery Method Room Air 09/26/23 09:30 Discharge Plan Discharge Clinical Impression: Fracture of distal end of left fibula Patient Disposition: Home, Self-Care Condition: Stable Instructions: Leg Fracture (ED) Additional Instructions: Splint until follow-up with Orthopedics. Ibuprofen and/or Tylenol as needed for pain. Elevate as much as able to help control swelling. Use your walker, minimize weightbearing until ortho follow up and final determination of management of your injury. Prescriptions: No Action doxycycline hyclate 100 mg capsule 100 mg PO BID Qty: 14 0RF ibuprofen 600 mg tablet 600 mg PO Q6H PRNQty: 20 0RF levothyroxine 50 mcg tablet 50 mcg PO DAILY metformin 500 mg tablet extended release 24 hr 500 mg PO DAILY clindamycin HCl 300 mg capsule 300 mg PO Q8H Qty: 15 0RF Follow Up/Referrals: Provider,Not a Local [Primary Care Provider] - Stand Alone Forms: MyHealth Info Instructions
--- OUTSIDE RECORDS SUMMARY | 2023-09-26 09:55 | XMS_ITS | Clinical Summary ---
Author Organization [facility] Address [address] [place] [address] Care Team Providers Care Pharmacy Technician Infusion Name Role Phone Cyndee Burton APRN, C.N.P., D.N.P. Primary Ca re Provider Source Comments Patient records contain information from all sites at [facility]. For routine questions regarding patient records, call [phone] during business hours, M-F 8:00 AM - 5:00 PM Central Time. Record requests for emergency care only can be directed to [phone] at any time.[facility] Allergies Active Allergy Reactions Criticality Noted Date Comments Adhesive Itching 04/03/2023 Redness Sulfa (Sulfonamide Antibiotics) Hives (Reselect Reaction) 08/06/2008 Medications Medication Sig Dispensed Refills Start Date End Date Status multivitamin (multivitamin) tablet Take 1 tablet by mouth daily. Active levothyroxine (SYNTHROID, LEVOTHROID) 50 mcg tablet Take 50 mcg by mouth every morning before breakfast. 09/12/2022 Active HAIR, SKIN AND NAILS, BIOTIN, ORAL Take 1 tablet by mouth daily. Active Active Problems Problem Noted Date Diagnosed Date Hypothyroidism Subclinical 03/08/2021 Body Mass Index 45.0 To 49.9 Adult 03/08/2021 Anxiety 05/25/2013 Cervical Dysplasia Personal History 09/18/2012 Other Lack Of Expected Angela l Physiological Development In Childhood 09/18/2012 Overview: date unknown [facility] Chiropractor Assistant: Blossom Leone Insomnia 09/18/2012 Dysthymia 08/31/2012 Overview: Dysthymic Disorder Herpes Genitalis 04/12/2012 Hypertriglyceridemia 01/03/2012 Hidradenitis Suppurativa 08/04/2010 Overview: date unknown Encounters Date Type Department Care Team Description 08/01/2023 Orders Only [facility] PCP [facility] MNT Cyndee Burton, FITNESS STUDIES TEACHER, C.N.P., D.N.P. Hypothyroidism from Last 3 Months Immunizations Name Administration [...] 0.6 oz pur e alcohol) 1-2x week [facility] Utilities Answer Date Recorded In the past [...] your living situation today? [facility] 05/04/2023 Sex and Gender Information Value Date Recorded Sex Assigned at Female 05/04/2023 11:55 PM FLARE MAN Gender Identity Female 05/04/2023 11:55 PM FLARE MAN Sexual Orientation Straight 05/04/2023 11 :55 PM FLARE MAN Last Filed Vital Signs Vital Sign Reading Time Taken Comments Blood Pressure 131/82 04/05/2023 8:08 AM FLARE MAN Pulse 76 04/05/2023 8:08 AM FLARE MAN Temperature 36.8 ??C (98.2 ??F) 10/10/2021 7:12 PM CD T Respiratory Rate 19 10/10/2021 9:00 PM CDT Oxygen Saturation 95% 10/10/2021 9:00 PM CDT Inhaled Oxygen Concentration - - Weight 93.2 kg (205 lb 5.7 oz) 04/05/2023 8:08 A M FLARE MAN Height 149.7 cm (4' 10.94) 04/05/2023 8:[address] Body Mass Index 41.57 04/05/2023 8:08 AM FLARE MAN Plan of Treatment Health Maintenance Due Date [...] Additional history exists HPV Vaccines Completed 12/20/2011, 04/28, 03/08/2011 HIV Screening Completed 04/10/2012 Influenza Vaccine Completed 02/06/2023, , 01/18/2021, Additional history exists Pneumococcal vaccine (0-64 years) Aged Out No longer eligible based on patient's age to complete this topic Procedures Procedure Name Priority Date/Time Associated Diagnosis Comments EXTI LIPID PANEL W REFLEX MEASURED LDL Routine 02/06/2023 4:16 PM FLARE MAN EXTI THYROID-STIMULATING HORMONE-SENSITIVE (S-TSH), S Routine 08/18/2022 2:32 PM CDT HPV WITH GENOTYPING, PCR, THINPREP Routine 03/08/2021 5:03 PM FLARE MAN HXZZORDERS Routine 04/10/2012 3:55 PM FLARE MAN from Last 3 Months or Most Recently Relevant to Health Maintenance Results * HPV with Genotyping, PCR, ThinPrep (03/08/2021 5:03 PM FLARE MAN) Specimen Source Thin Prep Vial, Cervix/Endoc ervix 03/10/2021 3:36 PM FLARE MAN DTL HPV High Risk type 16, PCR Negative Negative 03/10/2021 3:36 PM FLARE MAN DTL HPV High Risk type 18, PCR Negative Negative 03/10/2021 3:36 PM FLARE MAN DTL HPV other High Risk types, PCR Negative Negative 03/10/2021 3:36 PM FLARE MAN DTL Comment: The following Other High Risk HPV types were not detected: 31, 33, 35, 39, 45, 51, 52, 56, 58, 59, 66, and 68 This test was ordered in the context of a [facility] DROP TESTER Cytology case; this result should be interpreted within the context of the DROP TESTER cytology report. Varies 03/08/2021 5:03 PM FLARE MAN 03/09/2021 10:54 AM FLARE MAN Narrative [facility] - 03/10/2021 3:36 PM FLARE MAN Specimen Information: Specimen ID: [id number] Specimen Type: Varies Specimen Collection Start Date: 03/08/2021 ??5:03 PM Specimen Received Date: 03/09/2021 10:54 AM Specimen ID: [id number] Specimen Type: Varies Sue Martinez LAB MICROBIOLOGY - [facility] ORDERABLES [facility] [address] [place] [address], [place] DTL [facility] [address] [place] [address] * HXZZORDERS (04/10/2012 3:55 PM FLARE MAN) HIV-1/-2 Antibody Negative Negative POWERCHART Comment: Negative result does not rule out HIV infection. If acute HIV-1 infection is suspected in a high-risk patient, submit plasma specimen for HIV-1 RNA quantification test. If this test is ordered as a follow-up test to a reactive rapid HIV antibody test result, supplemental testing by Western blot is recommended, even when this test result is negative. Testing is performed using the Ini[employer] Dig[employer] Anti-HIV 1+2 chemiluminescence immunoassay. Test Performed by: [facility] [address] [place] [address] Splicing Supervisor: Jimmy Link III, M.D. Blood 04/10/2012 3:55 PM FLARE MAN Charity Vasquez APRN, C.N.P., D.N.P. LAB HISTORICAL ORDERS POWERCHART from Last 3 Months or Most Recently Relevant to Health Maintenance Care Teams Pharmacy Technician Infusion Relationship Specialty Start Date End Date Cyndee Burton APRN, C.N.P., D.N.P. [id number] [phone] PCP - General Family Medicine 03/12/21
--- OUTSIDE RECORDS SUMMARY | 2023-09-26 09:55 | XMS_ITS ---
Author Organization [facility] Address [address] [place] [address] Support Name Relationship Address Aury Cartwright Title Emergency Contact Unknown [phone] Care Team Providers Care Wood Calker Name Role Phone Unavailable Unavailable Unavailable Surgery Details Not on file Complications Check Surgery Details section. Procedure Estimated Blood Loss Check Surgery Details section. Procedure Findings Check Surgery Details section. Procedure Specimens Taken Check Surgery Details section.
--- OUTSIDE RECORDS SUMMARY | 2023-09-26 09:55 | XMS_ITS | Referral Summary ---
Author Organization [facility] Address [address] [place] [address] Care Team Providers Care Floater Operator Name Role Phone Cyndee Burton APRN, C.N.P., D.N.P. Primary Ca re Provider Source Comments Patient records contain information from all sites at [facility]. For routine questions regarding patient records, call [phone] during business hours, M-F 8:00 AM - 5:00 PM Central Time. Record requests for emergency care only can be directed to [phone] at any time.[facility] Encounters Date Type Department Care Team Description 08/01/2023 Orders Only [facility] MNT Cyndee Burton APRN, C.N.P., D.N.P. Hypothyroidism from Last 3 Months Allergies Active Allergy [...] Development In Childhood 09/18/2012 Overview: date unknown [facility] Continuous Crusher Operator: Blossom Leone Insomnia 09/18/2012 Dysthymia 08/31/2012 Overview: [...] 0.6 oz pur e alcohol) 1-2x week [facility] Utilities Answer Date Recorded In the past 12 months has [employer], gas, oil, or water [employer] threatened to shut off services in your [...] your living situation today? I [facility] a [facility] to live 05/04/2023 Sex and Gender Information Value Date Recorded Sex Assigned at Female 05/04/2023 11:55 PM YAM CURER Gender Identity Female 05/04/2023 11:55 PM YAM CURER Sexual Orientation Straight 05/04/2023 11 :55 PM YAM CURER Last Filed Vital Signs Vital Sign Reading Time Taken Comments Blood Pressure 131/82 04/05/2023 8:08 AM YAM CURER Pulse 76 04/05/2023 8:08 AM YAM CURER Temperature 36.8 ??C (98.2 ??F) 10/10/2021 7:12 PM CD T Respiratory Rate 19 10/10/2021 9:00 PM CDT Oxygen Saturation 95% 10/10/2021 9:00 PM CDT Inhaled Oxygen Concentration - - Weight 93.2 kg (205 lb 5.7 oz) 04/05/2023 8:08 A M YAM CURER Height 149.7 cm (4' 10.94) 04/05/2023 8:[address] Body Mass Index 41.57 04/05/2023 8:08 AM YAM CURER Plan of Treatment Not on file Procedures Procedure Name Priority Date/Time Associated Diagnosis Comments EXTI LIPID PANEL W REFLEX MEASURED LDL Routine 02/06/2023 4:16 PM YAM CURER EXTI THYROID-STIMULATING HORMONE-SENSITIVE (S-TSH), S Routine 08/18/2022 2:32 PM CDT HPV WITH GENOTYPING, PCR, THINPREP Routine 03/08/2021 5:03 PM YAM CURER HXZZORDERS Routine 04/10/2012 3:55 PM YAM CURER from Last 3 Months or Most Recently Relevant to Health Maintenance Results * HPV with Genotyping, PCR, ThinPrep (03/08/2021 5:03 PM YAM CURER) Specimen Source Thin Prep Vial, Cervix/Endoc ervix 03/10/2021 3:36 PM YAM CURER DTL HPV High Risk type 16, PCR Negative Negative 03/10/2021 3:36 PM YAM CURER DTL HPV High Risk type 18, PCR Negative Negative 03/10/2021 3:36 PM YAM CURER DTL HPV other High Risk types, PCR Negative Negative 03/10/2021 3:36 PM YAM CURER DTL Comment: The following Other High Risk HPV types were not detected: 31, 33, 35, 39, 45, 51, 52, 56, 58, 59, 66, and 68 This test was ordered in the context of a [facility] FINISHED CARPET INSPECTOR Cytology case; this result should be interpreted within the context of the FINISHED CARPET INSPECTOR cytology report. Varies 03/08/2021 5:03 PM YAM CURER 03/09/2021 10:54 AM YAM CURER Narrative [facility] - 03/10/2021 3:36 PM YAM CURER Specimen Information: Specimen ID: [id number] Specimen Type: Varies Specimen Collection Start Date: 03/08/2021 ??5:03 PM Specimen Received Date: 03/09/2021 10:54 AM Specimen ID: [id number] Specimen Type: Varies Sue Martinez LAB MICROBIOLOGY - G ENERAL ORDERABLES [facility] [address] [place], [place] [address] DTL [facility] [address] [place] [address] * HXZZORDERS (04/10/2012 3:55 PM YAM CURER) HIV-1/-2 Antibody Negative Negative POWERCHART Comment: Negative [...] is negative. Testing is performed using the CoreX[employer] Anti-HIV 1+2 chemiluminescence immunoassay. Test Performed by: [facility] [address] [place] [address] Boulevard Glassware Replacer: Jimmy Link III, M.D. Blood 04/10/2012 3:55 PM YAM CURER Charity Vasquez APRN, C.N.P., D.N.P. LAB HISTORICAL ORDERS POWERCHART from Last 3 Months or Most Recently Relevant to Health Maintenance Care Teams Floater Operator Relationship Specialty Start Date End Date Cyndee Burton APRN, C.N.P., D.N.P. [address] [phone] PCP - General Family Medicine 03/12/21
--- OUTSIDE RECORDS SUMMARY | 2023-09-26 09:56 | XMS_ITS | Encounter Summary ---
Author Organization [facility] Address [address] [place] [address] Care Team Providers Care Natural Science Curator Name Role Phone Cyndee Burton APRN, C.N.P., D.N.P. Primary Ca re Provider Reason for Visit * Reason Onset Date Comments Neuro [facility] WGS : AC 05/09/2023 Encounter Details Date Type Department Care Team (Latest Contact Info) Description 05/09/2023 Clinical Communication Department of Medical Genetics in [place], [place] [address] [place] [address] Ángel Roman [address] [place] [phone] Neuro [facility] WGS : AC Social History Tobacco Use Types Packs/Day Years Used Date Smoking Tobacco: Never Passive Smoke Exposure: Current Smokeless Tobacco: Never Passive Exposure Comments:Cu rrent and past exposure. Alcohol Use Standard Drinks/Week Comments Yes 0 (1 standard drink = 0.6 oz pur e alcohol) 1-2x week [employer] Utilities Answer Date Recorded In the past 12 months has [employer], gas, oil, or water [employer] threatened to shut off services in [...] your living situation today? I have a [facility] place to live 05/04/2023 Sex and Gender Information Value Date Recorded Sex Assigned at Female 05/04/2023 11:55 PM PAPERHANGER APPRENTICE Gender Identity Female 05/04/2023 11:55 PM PAPERHANGER APPRENTICE Sexual Orientation Straight 05/04/2023 11 :55 PM PAPERHANGER APPRENTICE documented as of this encounter Miscellaneous Notes * Telephone Encounter - Ángel Roman - 07/11/2023 2:42 PM CDT Testing in process * Telephone Encounter - Ángel Roman - 06/29/2023 11:29 AM CDT Sample received by [employer]; BI in process * Telephone Encounter - Ángel Roman - 06/14/2023 9:54 AM CDT Sent POM checking in * Telephone Encounter - Ángel Roman - 05/24/2023 1:55 PM CST Pt responded with mom's information, pending decision by sister. RHANGER APPRENTICE * Telephone Encounter - Ángel Roman - 05/23/2023 10:13 AM CST ----- Message from Ailyn Vaca Cera, M.S[facility] sent at 05/22/2023 12:01 PM PAPERHANGER APPRENTICE ----- Date: 05/22/23 Lab: [facility] Testing: WGS GC: Ailyn Reyes CGC MD: Dr. Chuyita Wood Possible Participant Information if Known: Mother: Pending Other: Sister, pending Sample(s): Cryo Phenotype completed? Yes Consent form completed? Yes Epic order placed? Yes Secondary Findings : Yes Additional notes: My note, Dr. Wood's notes, pedigree, Dr. Maldonado's (04/05/2023), MR Brain (12/12), FXN testing (labs) RHANGER APPRENTICE documented in this encounter Plan of Treatment Not on file documented as of this encounter Visit Diagnoses Not on filedocumented in this encounter Additional Health Concerns Assessment Noted Time PHQ-9 Depression Total Score: 4 02/04/20 14 10:35 AM PAPERHANGER APPRENTICE documented as of this encounter Care Teams Natural Science Curator Relationship Specialty Start Date End Date Cyndee Burton APRN, C.N.P., D.N.P. [address] [phone] PCP - General Family Medicine 03/12/21 documented as of this encounter
--- OUTSIDE RECORDS SUMMARY | 2023-09-26 09:56 | XMS_ITS | Encounter Summary ---
Author Organization [facility] Address [address] [place] [address] Care Team Providers Care Old Testament Professor Name Role Phone Cyndee Burton APRN, C.N.P., D.N.P. Primary Ca re Provider Encounter Details Date Type Department Care Team (Late st Contact Info) Description 08/01/2023 Orders Only [facility] PCP [facility] MNT Cyndee Burton APRN, C.N.P., D.N.P. [address] [phone] Hypothyroidism Social History Tobacco Use Types Packs/Day Years Used Date Smoking Tobacco: Never Passive Smoke Exposure: Current Smokeless Tobacco: Never Passive Exposure Comments:Cu rrent and past exposure. Alcohol Use Standard Drinks/Week Comments Yes 0 (1 standard drink = 0.6 oz pur e alcohol) 1-2x week [facility] Utilities Answer Date Recorded In the past 12 months has [employer], gas, oil, or water [employer] threatened to shut off services in your [...] your living situation today? I have a [facility] place to live 05/04/2023 Sex and Gender Information Value Date Recorded Sex Assigned at Female 05/04/2023 11:55 PM COIL WRAPPER Gender Identity Female 05/04/2023 11:55 PM COIL WRAPPER Sexual Orientation Straight 05/04/2023 11 :55 PM COIL WRAPPER documented as of this encounter Plan of Treatment Scheduled Orders Name Type Priority Associated Diagnoses Orde r Schedule S-TSH (Thyroid-Stimulating Hormone - Sensitive) Lab Routine Hypothyroidism Expected: 08/15/2023, Expires: 01/28/2024 documented as of this encounter Visit Diagnoses Diagnosis Hypothyroidism documented in this encounter Additional Health Concerns Assessment Noted Time PHQ-9 Depression Total Score: 4 02/04/20 14 10:35 AM COIL WRAPPER documented as of this encounter Care Teams Old Testament Professor Relationship Specialty Start Date End Date Cyndee Burton APRN, C.N.P., D.N.P. [address] [phone] PCP - General Family Medicine 03/12/21 documented as of this encounter
--- OUTSIDE RECORDS SUMMARY | 2023-09-26 09:56 | XMS_ITS | Clinical Summary ---
Author Organization [facility] Address [place], [place] [address] Care Team Providers Care Automotive Hardware Engineer Name Role Phone Emile Myers MD Unavailable [phone] Rodrigo Fox MD Primary Care Provider Allergies Active Allergy Reactions Criticality Noted Date Comments Sulfa (Sulfonamide Antibiotics) Hives 01/25 Medications Medication Sig Dispensed Refills Start Date End Date Status multivitamin (MVI) tablet Take 1 Tablet by mouth once daily. 0 08/18/2022 Active FLUoxetine (PROZAC) 20 mg capsuleIndicatio ns:Depression with anxiety Take 1 Capsule (20 mg) by mouth every morning. 90 Capsule 1 02/06/2023 Active metFORMIN (GLUCOPHAGE XR) 500 mg Extended-Release tabletIndication s:Prediabetes TAKE 1 TABLET(500 MG) BY MOUTH EVERY DAY 90 Tablet 1 08/24/2023 Active levothyroxine (SYNTHROID) 50 mcg tabletIndication s:Hypothyroidism (acquired) TAKE 1 TABLET(50 MCG) BY MOUTH BEFORE BREAKFAST 90 Tablet 09/03/2023 Active levothyroxine (SYNTHROID) 50 mcg tabletIndication s:Hypothyroidism (acquired) TAKE 1 TABLET(50 MCG) BY MOUTH BEFORE BREAKFAST 90 Tablet 2 09/12/2022 Discontinued Active Problems Problem Noted Date Diagnosed Date Subclinical hypothyroidism 03/08/2021 Depression 02/20/2015 Hidradenitis suppurativa 02/10/2015 Obesity (BMI 30-39.9) 02/10/2015 Anxiety 05/25/2013 Insomnia 09/18/2012 History of cervical dysplasia 09/18/2012 Developmental disorder 09/18/2012 Overview: date unknown [facility] Hogshead Weigher: Blossom Leone Herpes genitalis 04/12/2012 Hypertriglyceridemia 01/03/2012 Encounters Date Type Department Care Team Description 09/01/2023 Refill [facility] [address] [place] [address] Rodrigo Fox MD Refill Request (Levothyroxine) 08/23/2023 Refill [facility] [address] [place] [address] Rodrigo Fox MD Refill Request (Metformin) 07/11/2023 Telephone [facility] [address] [place] [address] Rdorigo Fox MD from Last 3 Months Immunizations Name Administration [...] Outcome GA Total Labor Labor/2nd/3rd Weight Sex Type Anes PTL Nathaly A1 A5 Name Clin 2008 35w 0d M Vag Living 2017 36w 2d M Vag Living Delivery Location:[place] Last Filed Vital Signs Vital Sign Reading Time Taken Comments Blood Pressure 100/70 02/06/2023 3:30 PM BORING MACHINE OPERATOR HORIZONTAL Pulse 80 02/06/2023 3:30 PM BORING MACHINE OPERATOR HORIZONTAL Temperature 36.8 ??C (98.3 ??F) 12/24/2021 11:25 AM C DT Respiratory Rate 20 12/24/2021 11:25 AM CDT Oxygen Saturation 94% 01/18/2023 1:01 PM CDT Inhaled Oxygen Concentration - - Weight 93.7 kg (206 lb 9.6 oz) 02/06/2023 3:30 P M BORING MACHINE OPERATOR HORIZONTAL Height 150 cm (4' 11.06) 02/06/2023 3:30 PM BORING MACHINE OPERATOR HORIZONTAL Body Mass Index 41.65 02/06/2023 3:30 PM BORING MACHINE OPERATOR HORIZONTAL Plan of Treatment Upcoming Encounters Date Type Department Care Team (Late st Contact Info) Description 10/06/2023 1:00 PM CDT Office Visit [facility] [address] [place] [phone] [place] [address] [place], [place] [phone] Health Maintenance Due Date Last Done Comments COVID-19 vaccine series (2022- season) 2022 02/21/2022, 03/08/2021, 03/08/2021, Additional history [...] Comments ANTI HCV Routine 02/06/2023 4:16 PM BORING MACHINE OPERATOR HORIZONTAL Need for hepatitis C screening test from Last 3 Months or Most Recently Relevant to Health Maintenance Results * ANTI HCV (02/06/2023 4:16 PM BORING MACHINE OPERATOR HORIZONTAL) HEPATITIS C ANTIBODY Non-Reacti ve Non-React lucille 02/06/2023 10:57 PM BORING MACHINE OPERATOR HORIZONTAL [facility] [employer] [facility] Comment:Please note, per www .CDC.gov: If a patient is known to be at high risk of HCV infection, or is symptomatic, and the physician's suspicion of HCV infection is high, HCV RNA testing is often employed and is of diagnostic value, even after an initial negative anti-HCV test result. Blood BLOOD SPECIMEN / Unknown Venipuncture / Unknown 02/06/2023 4:16 PM BORING MACHINE OPERATOR HORIZONTAL 02/06/2023 4:18 PM BORING MACHINE OPERATOR HORIZONTAL Rodrigo Fox MD SEND OUTS [facility] [employer] [facility] [address] [place] [address], from Last 3 Months or Most Recently Relevant to Health Maintenance Care Teams Automotive Hardware Engineer Relationship Specialty [place] [address] [address] [address] PCP - General Family Practice 02/06/23 Emile Myers MD [address] [place] [address] Family Practice 12/24/21
== END 2023-09-26 12:49 | disposition home or self-care (01) ==
PROVIDERS: Emergency Provider Emergency Medicine
DX: S82.892A Other fracture of left lower leg, initial encounter for closed fracture (principal)
CPT/HCPCS: 73610; 73630; 99283; 99284

== ENCOUNTER 2023-10-05 07:04 | Day surgery (SDC) | payer MEDICAID, SELFPAY ==
[2023-10-05] VITALS (15 sets, daily range): BP systolic 118–153; BP diastolic 77–105; PULSE 64–80; RESP 14–16; TEMP 36.1–36.9; O2SAT 98–100; BMI 42.8
--- OUTSIDE RECORDS SUMMARY | 2023-10-05 07:07 | XMS_ITS | Clinical Summary ---
Author Organization [email or web address] [facility] Address [place], [place] [address] Care Team Providers Care Residential Lawn Specialist Name Role Phone Emile Myers MD Unavailable [phone] Rodrigo Fox MD Primary Care Provider Allergies Active Allergy Reactions Criticality Noted Date Comments Sulfa (Sulfonamide Antibiotics) Hives 01/25 Medications Medication Sig Dispensed Refills Start Date End Date Status multivitamin (MVI) tablet Take 1 Tablet by mouth once daily. 0 08/18/2022 Active levothyroxine (SYNTHROID) 50 mcg tabletIndication s:Hypothyroidism (acquired) TAKE 1 TABLET(50 MCG) BY MOUTH BEFORE BREAKFAST 90 Tablet 09/03/2023 Active oxyCODONE (ROXICODONE) 5 mg immediate release tablet 10/02/2023 Active acetaminophen (Tylenol Extra Strength) 500 mg tablet Take 1,000 mg by mouth every 6 hours. Max acetaminophen dose: 4000mg in 24 hrs. Active FLUoxetine (PROZAC) 20 mg capsuleIndicatio ns:Depression with anxiety Take 1 Capsule (20 mg) by mouth every morning. 90 Capsule 1 02/06/2023 4 Discontinue d(*Patient states no longer taking) metFORMIN (GLUCOPHAGE XR) 500 mg Extended-Release tabletIndication s:Prediabetes TAKE 1 TABLET(500 MG) BY MOUTH EVERY DAY 90 Tablet 1 08/24/2023 4 Discontinue d(*Patient states no longer taking) Active Problems Problem Noted Date Diagnosed Date Prediabetes 10/03/2023 Class 3 severe obesity due t o excess calories without serious comorbidity with body mass index (BMI) of 40.0 to 44.9 in adult 10/03/2023 Subclinical hypothyroidism 03/08/2021 Depression 02/20/2015 Hidradenitis 02/10/2015 Anxiety 05/25/2013 Insomnia 09/18/2012 History of cervical dysplasia 09/18/2012 Developmental disorder 09/18/2012 Overview: date unknown [facility] Livestock Breeder: Blossom Leone 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 Overview: date unknown [facility] Livestock Breeder: Blossom Leone Herpes genitalis 04/12/2012 Hypertriglyceridemia 01/03/2012 Resolved Problems Problem Noted Date Diagnosed Date Resolved Date Obesity (BMI 30-39.9) 02/10/20152023 Encounters Date Type Department Care Team Description 10/03/2023 2:35 PM CDT Office [place] [facility] [place] [address] [place] [address] René Frank MD Preoperative Exam (DOS 10/05/23 left leg fracture) 10/03/2023 Telephone [facility] [place] [address] [place] [address] René Frank MD Results 10/03/2023 Travel 09/01/2023 Refill [facility] [address] [place] [phone] Rodrigo Fox MD Refill Request (Levothyroxine) 08/23/2023 Refill [facility] [address] [facility] [phone] Rodrigo Fox MD Refill Request (Metformin) 07/11/2023 Telephone [facility] [address] [place] [phone] Rodrigo Fox MD from Last 3 Months [...] of Communication with Friends and Fami ly 0 10/03/2023 Financial Resource Strain Answer Date R ecorded Difficulty of Paying Living Expenses 3 10/03/2023 Difficulty of Paying Living Expenses Not on file 10/03/2023 Food Insecurity Answer Date Recorded Worried About Running Out of Food in the Last Ye ar 1 10/03/2023 Transportation Needs Answer Date Record ed Lack of Transportation (Medical) 1 10/03/2023 Housing Stability Answer Date Recorded Unable to Pay for Housing in the Last Year 1 10/03/2023 Sex and Gender Information Value Date Recorded Sex Assigned at Not on file Gender Identity Not on file Sexual Orientation Not on file Obstetrics History Para Term AB IAB SAB Ectopic Multiple Livin g Live Births 2 2 2 2 2 Date Outcome GA Total Labor Labor/2nd/3rd Weight Sex Type Anes PTL Nathaly A1 A5 Name Clin 2008 35w 0d M Vag Living 2018 36w 2d M Vag Living Delivery Location:[place] Last Filed Vital Signs Vital Sign Reading Time Taken Comments Blood Pressure 100/60 10/03/2023 2:20 PM CDT Pulse 76 10/03/2023 2:20 PM CDT Temperature 37.1 ??C (98.7 ??F) 10/03/2023 2:20 PM CD T Respiratory Rate 20 12/24/2021 11:25 AM CDT Oxygen Saturation 99% 10/03/2023 2:20 PM CDT Inhaled Oxygen Concentration - - Weight 93.7 kg (206 lb 9.6 oz) 02/06/2023 3:30 P M BATCH FREEZER Height 147.3 cm (4' 10) 10/03/2023 2:20 PM CDT Body Mass Index 41.65 02/06/2023 3:30 PM BATCH FREEZER Plan of Treatment Health Maintenance Due Date [...] Procedure Name Priority Date/Time Associated Diagnosis Comments HEMOGLOBIN A1C Add On 10/03/2023 3:26 PM CDT Preop examination Prediabetes CBC WITH AUTO DIFFERENTIAL Routine 10/03/2023 3:05 PM CDT Preop examination CBC WITH AUTO DIFFERENTIAL Routine 10/03/2023 3:05 PM CDT Preop examination ANTI HCV Routine 02/06/2023 4:16 PM BATCH FREEZER Need for hepatitis C screening test from Last 3 Months or Most Recently Relevant to Health Maintenance Results * HEMOGLOBIN A1C MONITORING (POCT) (10/03/2023 3:26 PM CDT) HEMOGLOBIN A1C MONITORING (POCT) 5.5 <=6.4 % 10/03/2023 3:50 PM CDT [facility] Blood BLOOD SPECIMEN / Unknown Add On / Unknown 10/03/2023 3:26 PM CDT 10/03/2023 3:26 PM CDT Narrative [facility] - 10/03/2023 3:50 PM CDT ? (<=6.9%) ? Indicates good control ? (7.0% to 7.9%) ? Indicates fair control ? (>=8.0%) ? Indicates poor control ?? NOTE: ??These thresholds are guidelines and ?individual targets may vary. Falsely low levels may be seen with: Recent Transfusion, Recent Significant Blood Loss, Hemolytic Diseases, or Falsely elevated levels may be seen with: Untreated Anemias, Splenectomy ? René Frank MD CHEMISTRY [facility] [address] [place] [address], * (ABNORMAL) CBC WITH AUTO DIFFERENTIAL (10/03/2023 3:05 PM CDT) Pathologist [facility] WHITE BLOOD COUNT 11.4(H) 4.5 - 11.0 thou/cu mm 10/03/2023 3:08 PM CDT [facility] RED BLOOD COUNT 4.13 4.00 - 5.20 mil/cu mm 10/03/2023 3:08 PM CDT [facility] HEMOGLOBIN 11.5(L) 12.0 - 16.0 g/dL 10/03/2023 3:08 PM CDT [facility] HEMATOCRIT 35.6 33.0 - 51.0 % 10/03/2023 3:08 PM CDT [facility] MCV 86 80 - 100 fL 10/03/2023 3:08 PM CDT [facility] MCH 27.8 26.0 - 34.0 pg 10/03/2023 3:08 PM CDT [facility] MCHC 32.3 32.0 - 36.0 g/dL 10/03/2023 3:08 PM CDT [facility] RDW 14.4 11.5 - 15.5 % 10/03/2023 3:08 PM CDT [facility] PLATELET COUNT 275 140 - 440 thou/cu mm 10/03/2023 3:08 PM CDT [facility] MPV 10.7 6.5 - 11.0 fL 10/03/2023 3:08 PM CDT [facility] % NEUT 74.1 % 10/03/2023 3:08 PM CDT [facility] % LYMPH 19.1 % 10/03/2023 3:08 PM CDT [facility] % MONO 4.6 % 10/03/2023 3:08 PM CDT [facility] % EOS 1.7 % 10/03/2023 3:08 PM CDT [facility] % BASO 0.5 % 10/03/2023 3:08 PM CDT [facility] ABSOLUTE NEUTROPHILS 8.5(H) 1.7 - 7.0 thou/cu mm 10/03/2023 3:08 PM CDT [facility] ABSOLUTE LYMPHOCYTES 2.2 0.9 - 2.9 thou/cu mm 10/03/2023 3:08 PM CDT [facility] ABSOLUTE MONOCYTES 0.5 <0.9 thou/cu mm 10/03/2023 3:08 PM CDT [facility] ABSOLUTE EOSINOPHILS 0.2 <0.5 thou/cu mm 10/03/2023 3:08 PM CDT [facility] ABSOLUTE BASOPHILS 0.1 <0.3 thou/cu mm 10/03/2023 3:08 PM CDT [facility] Blood BLOOD SPECIMEN / Unknown Venipuncture / Unknown 10/03/2023 3:05 PM CDT 10/03/2023 3:05 PM CDT René Frank MD HEMATOLOGY [facility] [address] [place] [address], * ANTI HCV (02/06/2023 4:16 PM BATCH FREEZER) HEPATITIS C ANTIBODY Non-Reacti ve Non-React lucille 02/06/2023 10:57 PM BATCH FREEZER [facility] Comment:Please note, per www .CDC.gov: If a patient is known to be at high risk of HCV infection, or is symptomatic, and the physician's suspicion of HCV infection is high, HCV RNA testing is often employed and is of diagnostic value, even after an initial negative anti-HCV test result. Blood BLOOD SPECIMEN / Unknown Venipuncture / Unknown 02/06/2023 4:16 PM BATCH FREEZER 02/06/2023 4:18 PM BATCH FREEZER Rodrigo Fox MD SEND OUTS [facility] [address] [place] [address], from Last 3 Months or Most Recently Relevant to Health Maintenance Care Teams Residential Lawn Specialist Relationship Specialty [place] [address] [place] [address] PCP - General Family Practice 02/06/23 Emile Myers MD [address] [place] [address] Family Practice 12/24/21
--- OUTSIDE RECORDS SUMMARY | 2023-10-05 07:07 | XMS_ITS | Encounter Summary ---
Author Organization [facility] Address [address] [place] [address] Care Team Providers Care Associate Professor Of Musicology Name Role Phone Cyndee Burton APRN, C.N.P., D.N.P. Primary Ca re Provider Reason for Visit * Reason Onset Date Comments Neuro [facility] WGS : AC 05/09/2023 Encounter Details Date Type Department Care Team (Latest Contact Info) Description 05/09/2023 Clinical Communication Department of Medical Genetics in [place], [place] [address] [place] [address] Ángel Roman [address] [place] [phone] Neuro [facility] WGS : AC Social History Tobacco Use Types Packs/Day Years Used Date Smoking Tobacco: Never Passive Smoke Exposure: Current Smokeless Tobacco: Never Passive Exposure Comments:Cu rrent and past exposure. Alcohol Use Standard Drinks/Week Comments Yes 0 (1 standard drink = 0.6 oz pur e alcohol) 1-2x week [employer] Utilities Answer Date Recorded In the past 12 months has [employer], gas, oil, or water [employer] threatened to shut off services in your [...] your living situation today? I have a [facility] place to live 05/04/2023 Sex and Gender Information Value Date Recorded Sex Assigned at Female 05/04/2023 11:55 PM ANALYTICAL RESEARCH CHEMIST Gender Identity Female 05/04/2023 11:55 PM ANALYTICAL RESEARCH CHEMIST Sexual Orientation Straight 05/04/2023 11 :55 PM ANALYTICAL RESEARCH CHEMIST documented as of this encounter Miscellaneous Notes * Telephone Encounter - Ángel Roman - 10/04/2023 9:41 AM CDT From Vx: Patient Gwen.E.'s report may be slightly delayed due to confirmatory validation. * Telephone Encounter - Ángel Roman - 07/11/2023 2:42 PM CDT Testing in process * Telephone Encounter - Ángel Roman - 06/29/2023 11:29 AM CDT Sample received by [employer]; BI in process * Telephone Encounter - Ángel Roman Brice - 06/14/2023 9:54 AM CDT Sent POM checking in * Telephone Encounter - JoscherelleNoelvannessa Narvaez - 05/24/2023 1:55 PM CST Pt responded with mom's information, pending decision by sister. YTICAL RESEARCH CHEMIST * Telephone Encounter - JoscherelleNoelvannessa Narvaez - 05/23/2023 10:13 AM CST ----- Message from Ailyn Vaca Cera, [place] [facility] sent at 05/22/2023 12:01 PM ANALYTICAL RESEARCH CHEMIST ----- Date: 05/22/23 Lab: [facility] Testing: WGS GC: Ailyn Reyes [facility] MD: Dr. Chuyita Wood Possible Participant Information if Known: Mother: Pending Other: Sister, pending Sample(s): Cryo Phenotype completed? Yes Consent form completed? Yes Epic order placed? Yes Secondary Findings : Yes Additional notes: My note, Dr. Wood's notes, pedigree, Dr. Maldonado's (04/05/2023), MR Brain (12/12), FXN testing (labs) YTICAL RESEARCH CHEMIST documented in this encounter Plan of Treatment Not on file documented as of this encounter Visit Diagnoses Not on filedocumented in this encounter Additional Health Concerns Assessment Noted Time PHQ-9 Depression Total Score: 4 02/04/20 14 10:35 AM ANALYTICAL RESEARCH CHEMIST documented as of this encounter Care Teams Associate Professor Of Musicology Relationship Specialty Start Date End Date Cnydee Burton APRN, C.N.P., D.N.P. [address] [phone] PCP - General Family Medicine 03/12/21 documented as of this encounter
--- OUTSIDE RECORDS SUMMARY | 2023-10-05 07:07 | XMS_ITS | Clinical Summary ---
Author Organization [facility] Address [address] [place] [address] Care Team Providers Care Semiconductor Wafers Marker Name Role Phone Cyndee Burton APRN, C.N.P., D.N.P. Primary Ca re Provider Source Comments Patient records contain information from all sites at [facility]. For routine questions regarding patient records, call [phone] during business hours, M-F 8:00 AM - 5:00 PM Central Time. Record requests for emergency care only can be directed to [phone] at any time.[facility] Allergies Active Allergy Reactions Criticality Noted [...] Development In Childhood 09/18/2012 Overview: date unknown [facility] Machine Feeder Raw Stock: Blossom Leone Insomnia 09/18/2012 Dysthymia 08/31/2012 Overview: Dysthymic Disorder Herpes Genitalis 04/12/2012 Hypertriglyceridemia 01/03/2012 Hidradenitis Suppurativa 08/04/2010 Overview: date unknown Encounters Date Type Department Care Team Description 08/01/2023 Orders Only [facility] PCP [facility] MNT Cyndee Burton, BELT AND LINK SHOP SUPERVISOR, C.N.P., D.N.P. Hypothyroidism from Last 3 Months [...] pur e alcohol) 1-2x week [facility] Utilities Answer Date Recorded In the [...] your living situation today? I have a [facility] place to live 05/04/2023 Sex and Gender Information Value Date Recorded Sex Assigned at Female 05/04/2023 11:55 PM FIELD NURSE Gender Identity Female 05/04/2023 11:55 PM FIELD NURSE Sexual Orientation Straight 05/04/2023 11 :55 PM FIELD NURSE Last Filed Vital Signs Vital Sign Reading Time Taken Comments Blood Pressure 131/82 04/05/2023 8:08 AM FIELD NURSE Pulse 76 04/05/2023 8:08 AM FIELD NURSE Temperature 36.8 ??C (98.2 ??F) 10/10/2021 7:12 PM CD T Respiratory Rate 19 10/10/2021 9:00 PM CDT Oxygen Saturation 95% 10/10/2021 9:00 PM CDT Inhaled Oxygen Concentration - - Weight 93.2 kg (205 lb 5.7 oz) 04/05/2023 8:08 A M FIELD NURSE Height 149.7 cm (4' 10.94) 04/05/2023 8:[address] Body Mass Index 41.57 04/05/2023 8:08 AM FIELD NURSE Plan of Treatment Health Maintenance Due Date [...] REFLEX MEASURED LDL Routine 02/06/2023 4:16 PM FIELD NURSE EXTI THYROID-STIMULATING HORMONE-SENSITIVE (S-TSH), S Routine 08/18/2022 2:32 PM CDT HPV WITH GENOTYPING, PCR, THINPREP Routine 03/08/2021 5:03 PM FIELD NURSE HXZZORDERS Routine 04/10/2012 3:55 PM FIELD NURSE from Last 3 Months or Most Recently Relevant to Health Maintenance Results * HPV with Genotyping, PCR, ThinPrep (03/08/2021 5:03 PM FIELD NURSE) Specimen Source Thin Prep Vial, Cervix/Endoc ervix 03/10/2021 3:36 PM FIELD NURSE DTL HPV High Risk type 16, PCR Negative Negative 03/10/2021 3:36 PM FIELD NURSE DTL HPV High Risk type 18, PCR Negative Negative 03/10/2021 3:36 PM FIELD NURSE DTL HPV other High Risk types, PCR Negative Negative 03/10/2021 3:36 PM FIELD NURSE DTL Comment: The following Other High Risk HPV types were not detected: 31, 33, 35, 39, 45, 51, 52, 56, 58, 59, 66, and 68 This test was ordered in the context of a [facility] SUPPLIER QUALITY ENGINEERING MANAGER Cytology case; this result should be interpreted within the context of the SUPPLIER QUALITY ENGINEERING MANAGER cytology report. Varies 03/08/2021 5:03 PM FIELD NURSE 03/09/2021 10:54 AM FIELD NURSE Narrative [facility] - 03/10/2021 3:36 PM FIELD NURSE Specimen Information: Specimen ID: [id number] Specimen Type: Varies Specimen Collection Start Date: 03/08/2021 ??5:03 PM Specimen Received Date: 03/09/2021 10:54 AM Specimen ID: [id number] Specimen Type: Varies Sue Martinez LAB MI[facility]OLOGY [facility] [address] [place] [address], [place] DTL [facility] [address] [place] [address] * HXZZORDERS (04/10/2012 3:55 PM FIELD NURSE) HIV-1/-2 Antibody Negative Negative POWERCHART Comment: Negative [...] is negative. Testing is performed using the [employer] Anti-HIV 1+2 chemiluminescence immunoassay. Test Performed by: [facility] [address] [place] [address] Travel Manager: Jimmy Link III, M.D. Blood 04/10/2012 3:55 PM FIELD NURSE Charity Vasquez APRN, C.N.P., D.N.P. LAB HISTORICAL ORDERS POWERCHART from Last 3 Months or Most Recently Relevant to Health Maintenance Care Teams Semiconductor Wafers Marker Relationship Specialty Start Date End Date Cyndee Burton APRN, C.N.P., D.N.P. [address] [phone] PCP - General Family Medicine 03/12/21
--- OUTSIDE RECORDS SUMMARY | 2023-10-05 07:07 | XMS_ITS | Referral Summary ---
Author Organization [facility] Address [address] [place] [address] Care Team Providers Care It Service Delivery Manager Name Role Phone Cyndee Burton APRN, C.N.P., D.N.P. Primary Ca re Provider Source Comments Patient records contain information from all sites at [facility]. For routine questions regarding patient records, call [phone] during business hours, M-F 8:00 AM - 5:00 PM Central Time. Record requests for emergency care only can be directed to [phone] at any time.[facility] Encounters Date Type Department Care Team Description [...] Development In Childhood 09/18/2012 Overview: date unknown [facility] Sonographer: Blossom Leoen Insomnia 09/18/2012 Dysthymia 08/31/2012 Overview: Dysthymic Disorder [...] 0.6 oz pur e alcohol) 1-2x week [facility] Utilities Answer Date Recorded In the past 12 months has [employer], gas, oil, or water [employer] threatened to shut off services in your [...] your living situation today? I have a [facility] place to live 05/04/2023 Sex and Gender Information Value Date Recorded Sex Assigned at Female 05/04/2023 11:55 PM APPLICATION DEVELOPMENT SPECIALIST Gender Identity Female 05/04/2023 11:55 PM APPLICATION DEVELOPMENT SPECIALIST Sexual Orientation Straight 05/04/2023 11 :55 PM APPLICATION DEVELOPMENT SPECIALIST Last Filed Vital Signs Vital Sign Reading Time Taken Comments Blood Pressure 131/82 04/05/2023 8:08 AM APPLICATION DEVELOPMENT SPECIALIST Pulse 76 04/05/2023 8:08 AM APPLICATION DEVELOPMENT SPECIALIST Temperature 36.8 ??C (98.2 ??F) 10/10/2021 7:12 PM CD T Respiratory Rate 19 10/10/2021 9:00 PM CDT Oxygen Saturation 95% 10/10/2021 9:00 PM CDT Inhaled Oxygen Concentration - - Weight 93.2 kg (205 lb 5.7 oz) 04/05/2023 8:08 A M APPLICATION DEVELOPMENT SPECIALIST Height 149.7 cm (4' 10.94) 04/05/2023 8:[address] Body Mass Index 41.57 04/05/2023 8:08 AM APPLICATION DEVELOPMENT SPECIALIST Plan of Treatment Not on file Procedures Procedure Name Priority Date/Time Associated Diagnosis Comments EXTI LIPID PANEL W REFLEX MEASURED LDL Routine 02/06/2023 4:16 PM APPLICATION DEVELOPMENT SPECIALIST EXTI THYROID-STIMULATING HORMONE-SENSITIVE (S-TSH), S Routine 08/18/2022 2:32 PM CDT HPV WITH GENOTYPING, PCR, THINPREP Routine 03/08/2021 5:03 PM APPLICATION DEVELOPMENT SPECIALIST HXZZORDERS Routine 04/10/2012 3:55 PM APPLICATION DEVELOPMENT SPECIALIST from Last 3 Months or Most Recently Relevant to Health Maintenance Results * HPV with Genotyping, PCR, ThinPrep (03/08/2021 5:03 PM APPLICATION DEVELOPMENT SPECIALIST) Specimen Source Thin Prep Vial, Cervix/Endoc ervix 03/10/2021 3:36 PM APPLICATION DEVELOPMENT SPECIALIST DTL HPV High Risk type 16, PCR Negative Negative 03/10/2021 3:36 PM APPLICATION DEVELOPMENT SPECIALIST DTL HPV High Risk type 18, PCR Negative Negative 03/10/2021 3:36 PM APPLICATION DEVELOPMENT SPECIALIST DTL HPV other High Risk types, PCR Negative Negative 03/10/2021 3:36 PM APPLICATION DEVELOPMENT SPECIALIST DTL Comment: The following Other High Risk HPV types were not detected: 31, 33, 35, 39, 45, 51, 52, 56, 58, 59, 66, and 68 This test was ordered in the context of a [facility] CLINICAL STUDY MANAGER Cytology case; this result should be interpreted within the context of the CLINICAL STUDY MANAGER cytology report. Varies 03/08/2021 5:03 PM APPLICATION DEVELOPMENT SPECIALIST 03/09/2021 10:54 AM APPLICATION DEVELOPMENT SPECIALIST Narrative [facility] - 03/10/2021 3:36 PM APPLICATION DEVELOPMENT SPECIALIST Specimen Information: Specimen ID: [id number] Specimen Type: Varies Specimen Collection Start Date: 03/08/2021 ??5:03 PM Specimen Received Date: 03/09/2021 10:54 AM Specimen ID: [id number] Specimen Type: Varies Sue Martinez LAB MICROBIOLOGY - G ENERAL ORDERABLES [facility] [address] [place], [place] [address] DTL [facility] [address] [place] [address] * HXZZORDERS (04/10/2012 3:55 PM APPLICATION DEVELOPMENT SPECIALIST) HIV-1/-2 Antibody Negative Negative POWERCHART Comment: Negative [...] is negative. Testing is performed using the [employer] Anti-HIV 1+2 chemiluminescence immunoassay. Test Performed by: [facility] [address] [place] [address] Cook Apprentice: Jimmy Link III, M.D. Blood 04/10/2012 3:55 PM APPLICATION DEVELOPMENT SPECIALIST Charity Vasquez APRN, C.N.P., D.N.P. LAB HISTORICAL ORDERS POWERCHART from Last 3 Months or Most Recently Relevant to Health Maintenance Care Teams It Service Delivery Manager Relationship Specialty Start Date End Date Cyndee Burton APRN, C.N.P., D.N.P. [address] [phone] PCP - General Family Medicine 03/12/21
--- OUTSIDE RECORDS SUMMARY | 2023-10-05 07:07 | XMS_ITS | Encounter Summary ---
Author Organization [facility] Address [address] [place] [address] Care Team Providers Care Grocery Worker Name Role Phone Cyndee Burton APRN, C.N.P., D.N.P. Primary Ca re Provider Encounter Details Date Type Department Care Team (Late st Contact Info) Description 08/01/2023 Orders Only [facility] PCP [facility] MNT Cyndee Burton APRN, C.N.P., D.N.P. [address] [phone] Hypothyroidism Social History Tobacco Use Types Packs/Day Years Used Date Smoking Tobacco: Never Passive Smoke Exposure: Current Smokeless Tobacco: Never Passive Exposure Comments:Cu rrent and past exposure. Alcohol Use Standard Drinks/Week Comments Yes 0 (1 standard drink = 0.6 oz pur e alcohol) 1-2x week [facility] Utilities Answer Date Recorded In the past 12 months has [employer], gas, oil, or water [employer] threatened to shut off services in your [...] your living situation today? I have a [facility] place to live 05/04/2023 Sex and Gender Information Value Date Recorded Sex Assigned at Female 05/04/2023 11:55 PM JEWEL BEARING DRILLER Gender Identity Female 05/04/2023 11:55 PM JEWEL BEARING DRILLER Sexual Orientation Straight 05/04/2023 11 :55 PM JEWEL BEARING DRILLER documented as of this encounter Plan of Treatment Scheduled Orders Name Type Priority Associated Diagnoses Orde r Schedule S-TSH (Thyroid-Stimulating Hormone - Sensitive) Lab Routine Hypothyroidism Expected: 08/15/2023, Expires: 01/28/2024 documented as of this encounter Visit Diagnoses Diagnosis Hypothyroidism documented in this encounter Additional Health Concerns Assessment Noted Time PHQ-9 Depression Total Score: 4 02/04/20 14 10:35 AM JEWEL BEARING DRILLER documented as of this encounter Care Teams Grocery Worker Relationship Specialty Start Date End Date Cyndee Burton APRN, C.N.P., D.N.P. [address] [phone] PCP - General Family Medicine 03/12/21 documented as of this encounter
--- OUTSIDE RECORDS SUMMARY | 2023-10-05 07:07 | XMS_ITS ---
Author Organization [facility] Address [address] [place] [address] Support Name Relationship Address Aury Cartwright Title Emergency Contact Unknown [phone] Care Team Providers Care Asparagus Cutter Name Role Phone Unavailable Unavailable Unavailable Surgery Details Not on file Complications Check Surgery Details section. Procedure Estimated Blood Loss Check Surgery Details section. Procedure Findings Check Surgery Details section. Procedure Specimens Taken Check Surgery Details section.
[2023-10-05 07:29] LABS: Ur HCG Qualitative* Negative (Negative)
[2023-10-05] MEDS: SODIUM CHLORIDE 0.9 % (FLUSH) 10 ML SYRINGE IVF (08:10)
[2023-10-05] MEDS: LACTATED RINGERS 1000 ML 1,000 ML 100 ML IV (08:10)
[2023-10-05] MEDS: fentaNYL 100 MCG/2 ML inj IVP (08:16)
[2023-10-05] MEDS: MIDAZOLAM HCL 1 MG/ML inj IVP (08:16)
--- NOTE | 2023-10-05 08:25 | SUR.PREOP ---
TIME?OUT:?0815 PT/RN/MDA?VERIFICATION?OF?SURGICAL?SITE Left Ankle,?PROCEDURE Nerve Block,?AND?CONSENT OBTAINED?PRIOR?TO?INVASIVE?PROCEDURE.
--- NOTE | 2023-10-05 08:51 | W.PM.NB ---
Nerve Block Nerve Block Time Seen by Provider: 08:23 Date Seen: 10/05/23 Type of block requested by surgeon for post-operative analgesia: popliteal Side: left Time out performed: Yes Verification of patient name: Yes Verification of date of : Yes Site marking: site marked Name of person performing procedure: Delano Continuous monitoring Was continuous monitoring of O2 sat, B/P, cardiac catheterization technician, recorded every 15 minutes?: Yes Procedure Checklist: sterile prep, needles and gloves Ultrasound guided. Images saved: Yes Medications given in 5ml increments after negative aspiration: Marcaine %: 0.5 mL: 20 Needle gauge: 20 Patient tolerated procedure well: Yes Additional comments: Needle noted adjacent to nerve Block Charges Block Charge (with Pro Fee): Sciatic Nerve Use of Ultrasound Machine for Block: Yes- US Guidance/pain block
--- NOTE | 2023-10-05 08:51 | W.PM.NB ---
Nerve Block Nerve Block Time Seen by Provider: 08:23 Date Seen: 10/05/23 Type of block requested by surgeon for post-operative analgesia: adductor canal Side: left Time out performed: Yes Verification of patient name: Yes Verification of date of : Yes Site marking: site marked Name of person performing procedure: Delano Continuous monitoring Was continuous monitoring of O2 sat, B/P, security monitor, recorded every 15 minutes?: Yes Procedure Checklist: sterile prep, needles and gloves Ultrasound guided. Images saved: Yes Medications given in 5ml increments after negative aspiration: Ropivicaine %: 0.5 mL: 20 Needle gauge: 20 Patient tolerated procedure well: Yes Additional comments: Needle noted adjacent to nerve Block Charges Block Charge (with Pro Fee): Femoral Nerve Use of Ultrasound Machine for Block: Yes- US Guidance/pain block
--- NOTE | 2023-10-05 09:15 | CRLHL7_ITS ---
For Patients: As a result of the Century Cures Act, medical imaging exams and procedure reports are released immediately into your electronic medical record. You may view this report before your referring provider. If you have questions, please contact your health care provider. Indication: Technique: Intraoperative fluoroscopic exam with total fluoroscopy time of 69 seconds and 3 saved images. Comparison: Left ankle radiograph on October 02, 2023 Findings/impression : Placement of an intramedullary jalil with two inferior stabilizing screws, traversing an obliquely oriented fracture of the distal left fibula. No evidence of hardware related complication. Dictated by Anoop Sow MD @ 10/06/2023 4:31:09 PM (Electronically Signed)
[2023-10-05] MEDS: CEFAZOLIN 1 GM inj 3 GM IVP (10:06)
--- NOTE | 2023-10-05 10:33 | PM.ORPRC ---
Procedure Note Date of procedure: 10/05/23 Procedure: PREOPERATIVE DIAGNOSIS: Left ankle Roberts B bimalleolar fracture POSTOPERATIVE DIAGNOSIS: Left ankle Roberts B bimalleolar fracture NAME OF OPERATION: ORIF SURGEON: Joe Monroe MD CLIENT SERVICES MANAGER: Evangelina Cao PA-C ANESTHESIA: Spinal plus popliteal block ESTIMATED BLOOD LOSS: 0 mL COMPLICATIONS: None SPECIMENS: None DRAINS: None PREOPERATIVE ANTIBIOTICS: Ancef 2 g INDICATIONS: The patient is a 38-year-old who sustained a left ankle fracture. ORIF was recommended. The risks, benefits and expected outcomes were discussed in detail. These included but were not limited to: Infection, bleeding, injury to blood vessel or nerve, venous thromboembolism. All questions were answered to their satisfaction. Use of an assistant operator was necessary throughout the case for patient positioning and safety, soft tissue retraction and closure. PROCEDURE: A popliteal block was placed by anesthesia. Spinal anesthesia was administered. The lower extremity was prepped and draped in the usual sterile fashion. A stab incision was made over the anterior and posterior aspect of the fracture site. A Roberts reduction clamp was used to obtain an anatomic reduction. The guide pin was placed in the center of the distal fragment of the fibula, percutaneously. Its placement was confirmed with the image intensifier in multiple views. A stab incision was made around the guide pin. The opening reamer was used, past the fracture site. The 3.2 mm reamer was Used in the proximal fragment. We placed the Arthrex 3 mm x 130 mm Intramedullary nail. The talons were deployed. We placed 2 screws in the distal fragment. We stressed the syndesmosis and found it to be stable. The clerical adjudicator was removed, the end cap was placed. This provides an anatomic reduction of the fibula with excellent fixation. Implants were imaged in the AP, mortise and lateral views and were felt to be well placed with an excellent reduction. The talus is nicely reduced under the tibial plafond. The wounds were irrigated with normal saline. The assistant operator closed the skin with a 4-0 Monocryl in a subcuticular fashion. Glue was used to seal the skin. The assistant operator placed a dry dressing and short leg Thomas Hernandez splint. Sponge and needle counts were correct x 2. The patient tolerated the procedure well. There were no apparent complications. They were carefully transferred to the hospital bed and taken to the postanesthesia care unit in satisfactory condition. PLAN: The patient will be discharged to home. They will remain strict nonweightbearing on the lower extremity. They will continue to work on ice and elevation.
--- NOTE | 2023-10-05 10:54 | W.ANESCHARGE ---
Anesthesia Charges Start Date/Time Anesthesia Start Date: 10/05/23 Anesthesia Start Time: 09:31 Stop Date/Time Anesthesia Stop Date: 10/05/23 Anesthesia Stop Time: 10:53
--- NOTE | 2023-10-05 11:09 | W.ANESCHARGE ---
Anesthesia Charges Start Date/Time Anesthesia Start Date: 10/05/23 Anesthesia Start Time: 09:31 Stop Date/Time Anesthesia Stop Date: 10/05/23 Anesthesia Stop Time: 10:53
== END 2023-10-05 12:24 | disposition home or self-care (01) ==
LOC: OR 07:06
PROVIDERS: Anesthesiology; Visit Provider Orthopaedic Surgery
PROC: (CPT 27814; principal; 2023-10-05 09:15)
DX: S82.842A Displaced bimalleolar fracture of left lower leg, initial encounter for closed fracture (principal); G89.18 Other acute postprocedural pain
CPT/HCPCS: 27814; 01480; 64445; 64447; 73600; 76000; 76942; 81025; C1713; C1776; J0665; J0690; J1100; J2250; J2405; J2704; J2795; J3010; J3490; J7120

== ENCOUNTER 2023-10-14 09:52 | Emergency (ER) | payer MEDICAID, SELFPAY ==
[2023-10-14 10:00] VITALS: BP 145/95; PULSE 84; RESP 18; TEMP 36.6; O2SAT 100; BMI 41.8
--- OUTSIDE RECORDS SUMMARY | 2023-10-14 10:10 | XMS_ITS | Clinical Summary ---
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 Overview: date unknown [facility] Toddler Lead Teacher: Blossom Leone Herpes genitalis 04/12/2012 Hypertriglyceridemia 01/03/2012 Resolved Problems Problem Noted Date Diagnosed Date Resolved Date Obesity (BMI 30-39.9) 02/10/20152023 Encounters Date Type Department Care Team Description 10/03/2023 2:35 PM CDT Office Visit [facility] [id number] [place] [id number] René Frank MD Preoperative Exam (DOS 10/05/23 left leg fracture) 10/03/2023 Telephone [facility] [address] [place] [address] René Frank MD Results 10/03/2023 Travel 09/01/2023 Refill [facility] [address] [place] [phone] Rodrigo Fox MD Refill Request (Levothyroxine) 08/23/2023 Refill [facility] [address] [place] [phone] Rodrigo Fox MD Refill Request (Metformin) from Last 3 Months Immunizations Name Administration Dates Next Due COVID-19 vaccine (Moderna 100mcg/0.5mL) HOANG BANEGAS 08/14/2020,07/17/2020 COVID-19 vaccine (Pfizer-Bio NTech 30mcg/0.3mL) 12YO+ BIVALENT PF, MDV 02/21/2022 COVID-19 vaccine (Best Teacher NTech 30mcg/0.3mL) PF, MDV 03/08/2021,03/08/2021 DT (Age [...] 2018 36w 2d M Vag Living Delivery Location:[place] Last Filed Vital Signs Vital Sign Reading Time Taken Comments Blood Pressure 100/60 10/03/2023 2:20 PM CDT Pulse 76 10/03/2023 2:20 PM CDT Temperature 37.1 ??C (98.7 ??F) 10/03/2023 2:20 PM CD T Respiratory Rate 20 12/24/2021 11:25 AM CDT Oxygen Saturation 99% 10/03/2023 2:20 PM CDT Inhaled Oxygen Concentration - - Weight 93.7 kg (206 lb 9.6 oz) 02/06/2023 3:30 P M AUDIO VIDEO REPAIRER Height 147.3 cm (4' 10) 10/03/2023 2:20 PM CDT Body Mass Index 41.65 02/06/2023 3:30 PM AUDIO VIDEO REPAIRER Plan of Treatment Health Maintenance Due Date [...] examination ANTI HCV Routine 02/06/2023 4:16 PM AUDIO VIDEO REPAIRER Need for hepatitis C screening test from Last 3 Months or Most Recently Relevant to Health Maintenance Results * HEMOGLOBIN A1C MONITORING (POCT) (10/03/2023 3:26 PM CDT) HEMOGLOBIN A1C MONITORING (POCT) 5.5 <=6.4 % 10/03/2023 3:50 PM CDT [facility] [place] BLOOD SPECIMEN / Unknown Add On / Unknown 10/03/2023 3:26 PM CDT 10/03/2023 3:26 PM CDT Narrative [facility] - 10/03/2023 3:50 PM CDT ? (<=6.9%) [...] Anemias, Splenectomy ? René Frank MD CHEMISTRY [facility] [address] [place] [address], * (ABNORMAL) CBC WITH AUTO DIFFERENTIAL (10/03/2023 3:05 PM CDT) [facility] WHITE BLOOD COUNT 11.4(H) 4.5 - 11.0 thou/cu mm 10/03/2023 3:08 PM CDT [facility] RED BLOOD COUNT 4.13 4.00 - 5.20 mil/cu mm 10/03/2023 3:08 PM CDT [facility] HEMOGLOBIN 11.5(L) 12.0 - 16.0 g/dL 10/03/2023 3:08 PM CDT [facility] HEMATOCRIT 35.6 33.0 - 51.0 % 10/03/2023 3:08 PM CDT [facility] MCV 86 80 - 100 fL 10/03/2023 3:08 PM CDT [facility] MCH 27.8 26.0 - 34.0 pg 10/03/2023 3:08 PM CDT [facility] MCHC 32.3 32.0 - 36.0 g/dL 10/03/2023 3:08 PM CDT [facility] RDW 14.4 11.5 - 15.5 % 10/03/2023 3:08 PM CDT [facility] PLATELET COUNT 275 140 - 440 thou/cu mm 10/03/2023 3:08 PM CDT [facility] MPV 10.7 6.5 - 11.0 fL 10/03/2023 3:08 PM CDT [facility] % NEUT 74.1 % 10/03/2023 3:08 PM CDT [facility] % LYMPH 19.1 % 10/03/2023 3:08 PM CDT [facility] % MONO 4.6 % 10/03/2023 3:08 PM CDT [facility] % EOS 1.7 % 10/03/2023 3:08 PM CDT [facility] % BASO 0.5 % 10/03/2023 3:08 PM CDT [facility] ABSOLUTE NEUTROPHILS 8.5(H) 1.7 - 7.0 thou/cu mm 10/03/2023 3:08 PM CDT [facility] ABSOLUTE LYMPHOCYTES 2.2 0.9 - 2.9 thou/cu mm 10/03/2023 3:08 PM CDT [facility] ABSOLUTE MONOCYTES 0.5 <0.9 thou/cu mm 10/03/2023 3:08 PM CDT [facility] ABSOLUTE EOSINOPHILS 0.2 <0.5 thou/cu mm 10/03/2023 3:08 PM CDT [facility] ABSOLUTE BASOPHILS 0.1 <0.3 thou/cu mm 10/03/2023 3:08 PM CDT [facility] Blood BLOOD SPECIMEN / Unknown Venipuncture / Unknown 10/03/2023 3:05 PM CDT 10/03/2023 3:05 PM CDT René Farnk MD HEMATOLOGY Performing Organization Address City/State/[facility] Co de Phone Number [facility] [address] [place] [address], * ANTI HCV (02/06/2023 4:16 PM AUDIO VIDEO REPAIRER) HEPATITIS C ANTIBODY Non-Reacti ve Non-React lucille 02/06/2023 10:57 PM AUDIO VIDEO REPAIRER [facility] Comment:Please note, per [...] Unknown Venipuncture / Unknown 02/06/2023 4:16 PM AUDIO VIDEO REPAIRER 02/06/2023 4:18 PM AUDIO VIDEO REPAIRER Rodrigo Fox MD SEND OUTS [facility] [address] [place] [address], from Last 3 Months or Most Recently Relevant to Health Maintenance Care Teams Rayon Winder Relationship Specialty [place] [address] [address] [address] PCP - General Family Practice 02/06/23 Emile Myers MD [address] [place] [address] Family Practice 12/24/21
--- OUTSIDE RECORDS SUMMARY | 2023-10-14 10:10 | XMS_ITS ---
Author Organization [facility] Address [address] [place] [address] Care Team Providers Care Varnishing Unit Operator Name Role Phone Unavailable Unavailable Unavailable Surgery Details Not on file Complications Check Surgery Details section. Procedure Estimated Blood Loss Check Surgery Details section. Procedure Findings Check Surgery Details section. Procedure Specimens Taken Check Surgery Details section.
--- OUTSIDE RECORDS SUMMARY | 2023-10-14 10:10 | XMS_ITS | Clinical Summary ---
Author Organization [facility] Address [address] [place] [address] Care Team Providers Care Head Piece Assembler Name Role Phone Cyndee Burton APRN, C.N.P., D.N.P. Primary Ca re Provider Source Comments Patient records contain information from all sites at [facility]. For routine questions regarding patient records, call [phone] during business hours, M-F 8:00 AM - 5:00 PM Central Time. Record requests for emergency care only can be directed to [phone] at any time.[facility] Allergies Active Allergy Reactions Criticality Noted Date [...] Angela l Physiological Development In Childhood 09/18/2012 Overview (12/17/2020): date unknown [facility] Earth Science Technical Officer: Blossom Leone Insomnia 09/18/2012 Dysthymia 08/31/2012 Overview (08/16/2016): Dysthymic Disorder Herpes Genitalis 04/12/2012 Hypertriglyceridemia 01/03/2012 Hidradenitis Suppurativa 08/04/2010 Overview (12/17/2020): date unknown Encounters Date Type Department Care Team Description 08/01/2023 Orders Only [facility] PCP [facility] MNT Cyndee Burton, RECEIVING CLERK, C.N.P., D.N.P. Hypothyroidism from Last 3 Months [...] 0.6 oz pur e alcohol) 1-2x week [facility] Utilities Answer Date Recorded In the [...] your living situation today? I have a [facility] place to live 05/04/2023 Sex and Gender Information Value Date Recorded Sex Assigned at Female 05/04/2023 11:55 PM COMMUNICATIONS TOWER CLIMBER Gender Identity Female 05/04/2023 11:55 PM COMMUNICATIONS TOWER CLIMBER Sexual Orientation Straight 05/04/2023 11 :55 PM COMMUNICATIONS TOWER CLIMBER Last Filed Vital Signs Vital Sign Reading Time Taken Comments Blood Pressure 131/82 04/05/2023 8:08 AM COMMUNICATIONS TOWER CLIMBER Pulse 76 04/05/2023 8:08 AM COMMUNICATIONS TOWER CLIMBER Temperature 36.8 ??C (98.2 ??F) 10/10/2021 7:12 PM CD T Respiratory Rate 19 10/10/2021 9:00 PM CDT Oxygen Saturation 95% 10/10/2021 9:00 PM CDT Inhaled Oxygen Concentration - - Weight 93.2 kg (205 lb 5.7 oz) 04/05/2023 8:08 A M COMMUNICATIONS TOWER CLIMBER Height 149.7 cm (4' 10.94) 04/05/2023 8:[address] Body Mass Index 41.57 04/05/2023 8:08 AM COMMUNICATIONS TOWER CLIMBER Plan of Treatment Health Maintenance Due Date [...] 12/20/2011, 0211/2011, 03/08/2011 HIV Screening Completed 04/10/2012 Pneumococcal vaccine (0-64 years) Aged Out No longer eligible based on patient's age to complete this topic Procedures Procedure Name Priority Date/Time Associated Diagnosis Comments HPV WITH GENOTYPING, PCR, THINPREP Routine 03/08/2021 5:03 PM COMMUNICATIONS TOWER CLIMBER THYROID-STIMULATING HORMONE-SENSITIVE (S-TSH) Routine 03/08/2021 4:50 PM COMMUNICATIONS TOWER CLIMBER Hypothyroidism LIPID PANEL, S Routine 03/08/2021 4:45 PM COMMUNICATIONS TOWER CLIMBER Hypertriglyceridemi a HXZZORDERS Routine 04/10/2012 3:55 PM COMMUNICATIONS TOWER CLIMBER from Last 3 Months or Most Recently Relevant to Health Maintenance Results * HPV with Genotyping, PCR, ThinPrep (03/08/2021 5:03 PM COMMUNICATIONS TOWER CLIMBER) Specimen Source Thin Prep Vial, Cervix/Endoc ervix 03/10/2021 3:36 PM COMMUNICATIONS TOWER CLIMBER DTL HPV High Risk type 16, PCR Negative Negative 03/10/2021 3:36 PM COMMUNICATIONS TOWER CLIMBER DTL HPV High Risk type 18, PCR Negative Negative 03/10/2021 3:36 PM COMMUNICATIONS TOWER CLIMBER DTL HPV other High Risk types, PCR Negative Negative 03/10/2021 3:36 PM COMMUNICATIONS TOWER CLIMBER DTL Comment: The following Other High Risk HPV types were not detected: 31, 33, 35, 39, 45, 51, 52, 56, 58, 59, 66, and 68 This test was ordered in the context of a [facility] LONG FILLER CIGAR ROLLER MACHINE Cytology case; this result should be interpreted within the context of the LONG FILLER CIGAR ROLLER MACHINE cytology report. Varies 03/08/2021 5:03 PM COMMUNICATIONS TOWER CLIMBER 03/09/2021 10:54 AM COMMUNICATIONS TOWER CLIMBER Narrative [facility] - 03/10/2021 3:36 PM COMMUNICATIONS TOWER CLIMBER Specimen Information: Specimen ID: [id number] Specimen Type: Varies Specimen Collection Start Date: 03/08/2021 ??5:03 PM Specimen Received Date: 03/09/2021 10:54 AM Specimen ID: [id number] Specimen Type: Varies Sue Martinez LAB MICROBIOLOGY - G ENERAL ORDERABLES Performing Organization Address City/[facility]/ZIP Co de Phone Number [facility] [address] [place] [address], [place] DTL [facility] [address] [place] [address] * (ABNORMAL) S-TSH (Thyroid-Stimulating Hormone - Sensitive) (03/08/2021 4:50 PM COMMUNICATIONS TOWER CLIMBER) TSH, Sensitive 8.0(H) 0.3 - 4.2 mIU/L 03/08/2021 5:59 PM COMMUNICATIONS TOWER CLIMBER CNFL Comment:Testing performed on serum Blood (Blood, Venous) 03/08/2021 4:50 PM COMMUNICATIONS TOWER CLIMBER 03/08/2021 4:51 PM COMMUNICATIONS TOWER CLIMBER Cyndee Burton APRN, C.N.P., D.N.P. LAB BLOOD ADD-ON Performing Organization Address City/[facility] Co de Phone Number [facility] [address] [place] [address], [place] CNFL [facility] in [address] [address] * (ABNORMAL) Lipid Panel (03/08/2021 4:45 PM COMMUNICATIONS TOWER CLIMBER) Cholesterol, Total 178 mg/dL 2020 5:12 PM COMMUNICATIONS TOWER CLIMBER CNFL Comment: ----REFERENCE VALUE---- Desirable: < 200 Borderline high: 200 - 239 High: > or = 240 Triglycerides 194(H) mg/dL 03/08/2021 5:12 PM COMMUNICATIONS TOWER CLIMBER CNFL Comment: ----REFERENCE VALUE---- Normal: <150 Borderline high: 150-199 High: 200-499 Very high: > or =500 Cholesterol, HDL 37(L) >=50 mg/dL 03/08/20 5:12 PM COMMUNICATIONS TOWER CLIMBER CNFL Calculated LDL 102 mg/dL 03/08/2021 5:12 PM COMMUNICATIONS TOWER CLIMBER CNFL Comment: ----REFERENCE VALUE---- Desirable: <100 mg/dL Above Desirable: 100-129 mg/dL Borderline High: 130-159 mg/dL High: 160-189 mg/dL Very High: >=190 mg/dL Cholesterol, Non-HDL, Calculated 141 mg/dL 03/08/2021 5:12 PM COMMUNICATIONS TOWER CLIMBER CNFL Comment: ----REFERENCE VALUE---- Desirable: <130 Above Desirable: 130-159 Borderline high: 160-189 High: 190-219 Very high: > or =220 Blood (Blood, Venous) 03/08/2021 4:45 PM COMMUNICATIONS TOWER CLIMBER 03/08/2021 4:59 PM COMMUNICATIONS TOWER CLIMBER Sue Martinez LAB BLOOD ADD-ON [facility] [address] [place] [address], [place] [address] * HXZZORDERS (04/10/2012 3:55 PM COMMUNICATIONS TOWER CLIMBER) HIV-1/-2 Antibody Negative Negative POWERCHART Comment: Negative [...] is negative. Testing is performed using the [employer] Anti-HIV 1+2 chemiluminescence immunoassay. Test Performed by: [place] [address] Senior Operator: Jimmy Link III, M.D. Blood 04/10/2012 3:55 PM COMMUNICATIONS TOWER CLIMBER Charity Vasquez APRN C.N.P., D.N.P. LAB HISTORICAL ORDERS POWERCHART from Last 3 Months or Most Recently Relevant to Health Maintenance Care Teams Head Piece Assembler Relationship Specialty Start Date End Date Cyndee Burton APRN, C.N.P., D.N.P. [address] [place] [phone] PCP - General Family Medicine 03/12/21
--- OUTSIDE RECORDS SUMMARY | 2023-10-14 10:10 | XMS_ITS | Encounter Summary ---
Author Organization [facility] Address [address] [place] [address] Care Team Providers Care Information Security Consultant Name Role Phone Cyndee Burton APRN, C.N.P., D.N.P. Primary Ca re Provider Encounter Details Date Type Department Care Team (Late st Contact Info) Description 08/01/2023 Orders Only [facility] PCP [facility] MNT Cyndee Burton APRN, C.N.P., D.N.P. [id number] [phone] Hypothyroidism Social History Tobacco Use Types Packs/Day Years Used Date Smoking Tobacco: Never Passive Smoke Exposure: Current Smokeless Tobacco: Never Passive Exposure Comments:Cu rrent and past exposure. Alcohol Use Standard Drinks/Week Comments Yes 0 (1 standard drink = 0.6 oz pur e alcohol) 1-2x week [facility] Utilities Answer Date Recorded In the past 12 months has [employer], gas, oil, or water [employer] threatened to shut off services in your [...] your living situation today? I have a [facility] place to live 05/04/2023 Sex and Gender Information Value Date Recorded Sex Assigned at Female 05/04/2023 11:55 PM MANUFACTURING OPERATOR Gender Identity Female 05/04/2023 11:55 PM MANUFACTURING OPERATOR Sexual Orientation Straight 05/04/2023 11 :55 PM MANUFACTURING OPERATOR documented as of this encounter Plan of Treatment Scheduled Orders Name Type Priority Associated Diagnoses Orde r Schedule S-TSH (Thyroid-Stimulating Hormone - Sensitive) Lab Routine Hypothyroidism Expected: 08/15/2023, Expires: 01/28/2024 documented as of this encounter Visit Diagnoses Diagnosis Hypothyroidism documented in this encounter Additional Health Concerns Assessment Noted Time PHQ-9 Depression Total Score: 4 02/04/20 14 10:35 AM MANUFACTURING OPERATOR documented as of this encounter Care Teams Information Security Consultant Relationship Specialty Start Date End Date Cyndee Burton APRN, C.N.P., D.N.P. [id number] [phone] PCP - General Family Medicine 03/12/21 documented as of this encounter
--- OUTSIDE RECORDS SUMMARY | 2023-10-14 10:10 | XMS_ITS | Referral Summary ---
Author Organization [facility] Address [address] [place] [address] Care Team Providers Care Air Deodorizer Servicer Name Role Phone Cyndee Burton APRN, C.N.P., D.N.P. Primary Ca re Provider Source Comments Patient records contain information from all sites at [facility]. For routine questions regarding patient records, call [phone] during business hours, M-F 8:00 AM - 5:00 PM Central Time. Record requests for emergency care only can be directed to [phone] at any time.[facility] Encounters Date Type Department Care Team [...] In Childhood 09/18/2012 Overview (12/17/2020): date unknown [facility] Machine Icer: Blossom Leone Insomnia 09/18/2012 Dysthymia 08/31/2012 Overview (08/16/2016): Dysthymic Disorder Herpes Genitalis 04/12/2012 Hypertriglyceridemia 01/03/2012 Hidradenitis Suppurativa 08/04/2010 Overview (12/17/2020): date unknown Immunizations Name Administration Dates Next [...] 0.6 oz pur e alcohol) 1-2x week [facility] Utilities Answer Date Recorded In the past 12 months has [employer], gas, oil, or water company threatened to [...] your living situation today? I have a [facility] place to live 05/04/2023 Sex and Gender Information Value Date Recorded Sex Assigned at Female 05/04/2023 11:55 PM PROBATION AND PAROLE OFFICER Gender Identity Female 05/04/2023 11:55 PM PROBATION AND PAROLE OFFICER Sexual Orientation Straight 05/04/2023 11 :55 PM PROBATION AND PAROLE OFFICER Last Filed Vital Signs Vital Sign Reading Time Taken Comments Blood Pressure 131/82 04/05/2023 8:08 AM PROBATION AND PAROLE OFFICER Pulse 76 04/05/2023 8:08 AM PROBATION AND PAROLE OFFICER Temperature 36.8 ??C (98.2 ??F) 10/10/2021 7:12 PM CD T Respiratory Rate 19 10/10/2021 9:00 PM CDT Oxygen Saturation 95% 10/10/2021 9:00 PM CDT Inhaled Oxygen Concentration - - Weight 93.2 kg (205 lb 5.7 oz) 04/05/2023 8:08 A M PROBATION AND PAROLE OFFICER Height 149.7 cm (4' 10.94) 04/05/2023 8:[address] Body Mass Index 41.57 04/05/2023 8:08 AM PROBATION AND PAROLE OFFICER Plan of Treatment Not on file Procedures Procedure Name Priority Date/Time Associated Diagnosis Comments HPV WITH GENOTYPING, PCR, THINPREP Routine 03/08/2021 5:03 PM PROBATION AND PAROLE OFFICER THYROID-STIMULATING HORMONE-SENSITIVE (S-TSH) Routine 03/08/2021 4:50 PM PROBATION AND PAROLE OFFICER Hypothyroidism LIPID PANEL, S Routine 03/08/2021 4:45 PM PROBATION AND PAROLE OFFICER Hypertriglyceridemi a HXZZORDERS Routine 04/10/2012 3:55 PM PROBATION AND PAROLE OFFICER from Last 3 Months or Most Recently Relevant to Health Maintenance Results * HPV with Genotyping, PCR, ThinPrep (03/08/2021 5:03 PM PROBATION AND PAROLE OFFICER) Specimen Source Thin Prep Vial, Cervix/Endoc ervix 03/10/2021 3:36 PM PROBATION AND PAROLE OFFICER DTL HPV High Risk type 16, PCR Negative Negative 03/10/2021 3:36 PM PROBATION AND PAROLE OFFICER DTL HPV High Risk type 18, PCR Negative Negative 03/10/2021 3:36 PM PROBATION AND PAROLE OFFICER DTL HPV other High Risk types, PCR Negative Negative 03/10/2021 3:36 PM PROBATION AND PAROLE OFFICER DTL Comment: The following Other High Risk HPV types were not detected: 31, 33, 35, 39, 45, 51, 52, 56, 58, 59, 66, and 68 This test was ordered in the context of a [facility] CELL COVERER Cytology case; this result should be interpreted within the context of the CELL COVERER cytology report. Varies 03/08/2021 5:03 PM PROBATION AND PAROLE OFFICER 03/09/2021 10:54 AM PROBATION AND PAROLE OFFICER Narrative [facility] - 03/10/2021 3:36 PM PROBATION AND PAROLE OFFICER Specimen Information: Specimen ID: [id number] Specimen Type: Varies Specimen Collection Start Date: 03/08/2021 ??5:03 PM Specimen Received Date: 03/09/2021 10:54 AM Specimen ID: [id number] Specimen Type: Varies Sue Martinez LAB MICROBIOLOGY - G ENERAL ORDERABLES [facility] [address] [place] [address], [place] DTL [facility] [address] [place] [address] * (ABNORMAL) S-TSH (Thyroid-Stimulating Hormone - Sensitive) (03/08/2021 4:50 PM PROBATION AND PAROLE OFFICER) TSH, Sensitive 8.0(H) 0.3 - 4.2 mIU/L 03/08/2021 5:59 PM PROBATION AND PAROLE OFFICER CNFL Comment:Testing performed on serum Blood (Blood, Venous) 03/08/2021 4:50 PM PROBATION AND PAROLE OFFICER 03/08/2021 4:51 PM PROBATION AND PAROLE OFFICER Cyndee Burton APRN, C.N.P., D.N.P. LAB BLOOD [facility] [address] [place] [id number], [facility] CNFL [facility] in [address] [address] * (ABNORMAL) Lipid Panel (03/08/2021 4:45 PM PROBATION AND PAROLE OFFICER) Cholesterol, Total 178 mg/dL 2020 5:12 PM PROBATION AND PAROLE OFFICER CNFL Comment: ----REFERENCE VALUE---- Desirable: < 200 Borderline high: 200 - 239 High: > or = 240 Triglycerides 194(H) mg/dL 03/08/2021 5:12 PM PROBATION AND PAROLE OFFICER CNFL Comment: ----REFERENCE VALUE---- Normal: <150 Borderline high: 150-199 High: 200-499 Very high: > or =500 Cholesterol, HDL 37(L) >=50 mg/dL 03/08/20 5:12 PM PROBATION AND PAROLE OFFICER CNFL Calculated LDL 102 mg/dL 03/08/2021 5:12 PM PROBATION AND PAROLE OFFICER CNFL Comment: ----REFERENCE VALUE---- Desirable: <100 mg/dL Above Desirable: 100-129 mg/dL Borderline High: 130-159 mg/dL High: 160-189 mg/dL Very High: >=190 mg/dL Cholesterol, Non-HDL, Calculated 141 mg/dL 03/08/2021 5:12 PM PROBATION AND PAROLE OFFICER CNFL Comment: ----REFERENCE VALUE---- Desirable: <130 Above Desirable: 130-159 Borderline high: 160-189 High: 190-219 Very high: > or =220 Blood (Blood, Venous) 03/08/2021 4:45 PM PROBATION AND PAROLE OFFICER 03/08/2021 4:59 PM PROBATION AND PAROLE OFFICER Sue Martinez LAB BLOOD [facility] [address] [place] [id number], [facility] CNFL [facility] in [address] [address] * HXZZORDERS (04/10/2012 3:55 PM PROBATION AND PAROLE OFFICER) Pathologist [facility] HIV-1/-2 Antibody Negative Negative POWERCHART Comment: Negative [...] is negative. Testing is performed using the SpinPunch Anti-HIV 1+2 chemiluminescence immunoassay. Test Performed by: [place] [address] Separator Operator: Jimmy Link III, M.D. Blood 04/10/2012 3:55 PM PROBATION AND PAROLE OFFICER Charity Vasquez APRN, C.N.P., D.N.P. LAB HISTORICAL ORDERS POWERCHART from Last 3 Months or Most Recently Relevant to Health Maintenance Care Teams Air Deodorizer Servicer Relationship Specialty Start Date End Date Cyndee Burton APRN, C.N.P., D.N.P. [address] [place] [phone] PCP - General Family Medicine 03/12/21
--- OUTSIDE RECORDS SUMMARY | 2023-10-14 10:10 | XMS_ITS | Encounter Summary ---
Author Organization [facility] Address [address] [place] [address] Care Team Providers Care Spa Coordinator Name Role Phone Cyndee Burton APRN, C.N.P., D.N.P. Primary Ca re Provider Reason for Visit * Reason Onset Date Comments Neuro [facility] WGS : AC 05/09/2023 Encounter Details Date Type Department Care Team (Latest Contact Info) Description 05/09/2023 Clinical Communication Department of Medical Genetics in [place], [place] [address] [place] [address] Ángel Roman Brice [address] [place] [phone] Neuro [facility] WGS : AC Social History Tobacco Use Types Packs/Day Years Used Date Smoking Tobacco: Never Passive Smoke Exposure: Current Smokeless Tobacco: Never Passive Exposure Comments:Cu rrent and past exposure. Alcohol Use Standard Drinks/Week Comments Yes 0 (1 standard drink = 0.6 oz pur e alcohol) 1-2x week [facility] Utilities Answer Date Recorded In the past 12 months has [employer], gas, oil, or water [employer] threatened to shut off services in your [...] your living situation today? I have a [facility] place to live 05/04/2023 Sex and Gender Information Value Date Recorded Sex Assigned at Female 05/04/2023 11:55 PM COMIC ILLUSTRATOR Gender Identity Female 05/04/2023 11:55 PM COMIC ILLUSTRATOR Sexual Orientation Straight 05/04/2023 11 :55 PM COMIC ILLUSTRATOR documented as of this encounter Miscellaneous Notes * Telephone Encounter - Ángel Roman - 10/04/2023 9:41 AM CDT From Vx: Patient Gwen.E.'s report may be slightly delayed due to confirmatory validation. * Telephone Encounter - Ángel Roman - 07/11/2023 2:42 PM CDT Testing in process * Telephone Encounter - Ángel Roman - 06/29/2023 11:29 AM CDT Sample received by [employer]; BI in process * Telephone Encounter - Ángel Roman Brice - 06/14/2023 9:54 AM CDT Sent POM checking in * Telephone Encounter - JoscherelleNoelvannessa Narvaez - 05/24/2023 1:55 PM CST Pt responded with mom's information, pending decision by sister. C ILLUSTRATOR * Telephone Encounter - JoscherelleNoelvannessa Narvaez - 05/23/2023 10:13 AM CST ----- Message from Ailyn Vaca Cera, M.S. [employer] [employer] sent at 05/22/2023 12:01 PM COMIC ILLUSTRATOR ----- Date: 05/22/23 Lab: [facility] Testing: WGS GC: Ailyn Reyes [facility] MD: Dr. Chuyita Wood Possible Participant Information if Known: Mother: Pending Other: Sister, pending Sample(s): Cryo Phenotype completed? Yes Consent form completed? Yes Epic order placed? Yes Secondary Findings : Yes Additional notes: My note, Dr. Wood's notes, pedigree, Dr. Maldonado's (04/05/2023), MR Brain (12/12), FXN testing (labs) C ILLUSTRATOR documented in this encounter Plan of Treatment Not on file documented as of this encounter Visit Diagnoses Not on filedocumented in this encounter Additional Health Concerns Assessment Noted Time PHQ-9 Depression Total Score: 4 02/04/20 14 10:35 AM COMIC ILLUSTRATOR documented as of this encounter Care Teams Spa Coordinator Relationship Specialty Start Date End Date Cyndee Burton APRN, C.N.P., D.N.P. [id number] [phone] PCP - General Family Medicine 03/12/21 documented as of this encounter
--- NOTE | 2023-10-14 11:04 | ED_ITS ---
HPI - General Adult General Date Seen: 10/14/23 Chief complaint: Extremity Pain/Injury, Lower Stated complaint: Leg cast issues Time Seen by Provider: 10/14/23 09:54 Source: patient, RN notes reviewed and old records reviewed Mode of arrival: ambulatory Limitations: no limitations History of Present Illness HPI narrative: Patient is a 38-year-old woman who underwent surgery for a distal fibular fracture on October 04. She comes in saying that her splint is uncomfortable. The upper edges due again to her leg. She is scheduled for casting in a few days but did not feel she should wait that long. No other complaints. 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, unspecified (ICD-10) Anxiety ?F41.9 - Anxiety disorder, unspecified (ICD-10) Obesity (BMI 30-39.9) ?E66.9 - Obesity, unspecified (ICD-10) Insomnia ?G47.00 - Insomnia, unspecified (ICD-10) Cervical dysplasia ?N87.9 - Dysplasia of cervix uteri, unspecified (ICD-10) Hypertriglyceridemia ?E78.1 - Pure hyperglyceridemia (ICD-10) Herpes genitalis ?A60.00 - Herpesviral infection of urogenital system, unspecified (ICD-10) Developmental disorder ?F89 - Unspecified disorder of psychological development (ICD-10) Chronic ankle pain ?M25.579 - Pain in unspecified ankle and joints of unspecified foot (ICD-10) ?G89.29 - Other chronic pain (ICD-10) PTSD (post-traumatic stress disorder) ?F43.10 - Post-traumatic stress disorder, unspecified (ICD-10) Depression ?F32.A - Depression, unspecified (ICD-10) Subclinical hypothyroidism ?E03.8 - Other specified hypothyroidism (ICD-10) Surgical History H/O tubal ligation ?Z98.51 - Tubal ligation status (ICD-10) Hx of cholecystectomy ?Z90.49 - Acquired absence of other specified parts of digestive tract (ICD- 10) Social History Smoking Status: Never smoker How often do you have a drink containing alcohol: never How often do you have six or more drinks on one occasion: Never AUDIT-C Alcohol total score: 0 Non-prescribed substance use: denies use Caffeine: No Are you using contraception or practicing any form of control: No service: No Exam Narrative: Exam Narrative: Vital signs reviewed In general, alert, nontoxic woman. Left lower extremity is in a short-leg splint. Toes are pink, no significant edema. Const: Vital Signs, click to edit/add: Vital Signs - 24 hr 10/14/23 10:00 Temperature 97.8 F Pulse Rate [Right Pulse Oximeter] 84 Respiratory Rate 18 Blood Pressure [Ri ght Upper Arm] 145/95 H Pulse Oximetry 100 Oxygen Delivery Me thod Room Air Documenting provider has reviewed patient's vital signs: yes Course Course ED Course: The upper ends of her splint extend past the padding, these do seem to be under skin a bit although the skin itself looks healthy. I removed that splint, the incisions look great, no surrounding erythema, no drainage. I replaced gauze with Betadine, and then placed a new short-leg Thomas Hernandez type splint with a U splint similar to the prior splint. She should go to orthopedic clinic as planned this week for casting. Elevate as able. Weightbearing per orthopedic instructions. Vital Signs Vital signs: Initial Vital Signs Temperature 97.8 F 10/14/23 10:00 Temperature Source Temporal Artery Scan 10/14/23 10:00 Pulse Rate 84 10/14/23 10:00 Respiratory Rate 18 10/14/23 10:00 Blood Pressure 145/95 H 10/14/23 10:00 Blood Pressure Mean 111 H 10/14/23 10:00 Blood Pressure Position Sitting 10/14/23 10:00 Pulse Oximetry 100 10/14/23 10:00 Oxygen Delivery Method Room Air 10/14/23 10:00 Vital Signs Temperature 97.8 F 10/14/23 10:00 Pulse Rate 84 10/14/23 10:00 Respiratory Rate 18 10/14/23 10:00 Blood Pressure 145/95 H 10/14/23 10:00 Pulse Oximetry 100 10/14/23 10:00 Oxygen Delivery Method Room Air 10/14/23 10:00 Temperature 97.8 F 10/14/23 10:00 Pulse Rate 84 10/14/23 10:00 Respiratory Rate 18 10/14/23 10:00 Blood Pressure 145/95 H 10/14/23 10:00 Pulse Oximetry 100 10/14/23 10:00 Oxygen Delivery Method Room Air 10/14/23 10:00 Discharge Plan Discharge Clinical Impression: Ankle fracture, Aftercare for cast or splint check or change Patient Disposition: Home, Self-Care Condition: Stable Additional Instructions: Follow-up for casting this week as planned. Elevate leg as much as able. Prescriptions: No Action oxycodone 5 mg tablet 2.5 - 5 mg PO Q6H PRN (Reason: pain) Qty: 30 0RF Rx Instructions: Minimize. Discontinue as soon as possible multivitamin Tablet 1 tab PO DAILY levothyroxine 50 mcg tablet 50 mcg PO DAILY (DME) Knee Scooter- Adult Misc See Rx Instructions .Route Qty: 1 0RF Rx Instructions: As directed for 6 weeks post operative. DOS: 10/05/2023. Follow Up/Referrals: Provider,Not a Local [Primary Care Provider] - Stand Alone Forms: MyHealth Info Instructions
== END 2023-10-14 10:30 | disposition home or self-care (01) ==
PROVIDERS: Emergency Provider Emergency Medicine
DX: Z48.00 Encounter for change or removal of nonsurgical wound dressing (principal)
CPT/HCPCS: 99282; 99283

== ENCOUNTER 2024-01-08 13:00 | Outpatient (RCR) | payer MEDICAID, SELFPAY ==
--- NOTE | 2023-12-05 11:46 | PT.OPEX ---
PT [place] Outpatient Eval PT [facility] Outpatient Eval Start: 12/04/23 16:09 Freq: Status: Active Protocol: Document 12/04/23 16:10 DOYLE (Rec: 12/04/23 16:14 DOYLE [id number]) E-signed By Kristen Kevin DPT Physical Therapy Outpatient Evaluation Insurance Information Recert Due Date 03/03/24 Insurance Name Medicaid,[facility] Medical Diagnosis s/p L ankle ORIF 10/05/23 Treating Diagnosis s/p L ankle ORIF 10/05/23 with L ankle pain, impaired L ankle ROM, impaired L ankle strength, limping/antalgic gait using 4ww Referring MD [place] Subjective Subjective Patient reports falling off a step stool September 25 while trying to clean the top of the refrigerator. She wasn't able to get back up due to L ankle pain. States she crawled over to the couch to scoot herself up and then called the ambulance. She reports having L ankle surgery October 04 . She was in a cast for 6 weeks after surgery, NWB on L LE. She was using a kneeling scooter to get around. She had follow up with 11/21 and her cast was removed. They tried to fit her for a CAM walking boot but they couldn't find one that would fit so she is wearing a slipper shoe for now - can't get her regular shoes back on yet. She has also been wearing an ankle brace some but this is just a small velcro brace her mom picked up for her - minimal support or stability but states it feels good so she uses it sometimes. She is now WBAT. Reports increased pain with WB, standing, walking. Pain rated 5/10 with activity, minimal to no pain at rest. Patient reports using 4ww at her baseline secondary to dx of cerebellum ataxia with balance issues, hx of falls. Patient reports going without her 4ww in her apt as it is small. States she will furniture and wall walk to get around. Patient was getting home health PT services after surgery for about 3 weeks and then has continued on her own with the HEP until out of the cast and referred to OP PT. She has not been needing pain meds, hasn't been icing. She elevates her leg on occasion. Patient does not drive. She lives alone but states her mom and sister have been helping her as needed. She uses the bus and family for transportation. Date of Last Physician Visit 11/22/23 Date of Surgery (If applicable) 10/05/23 Current Work Status [facility] Disability Precautions Treatment Precautions/Contraindications Hx cerebellum ataxia with hx of falls, balance issues, uses 4ww for amb out of her apt at baseline Fall 09/26/23 with L ankle fx, s /p L ankle ORIF 10/05/23, now WBAT Weight Bearing Status Weight Bear as Tolerated Assessment Assessment/Impression Patient is a 38 year old female s/p L ankle ORIF with L ankle pain, impaired L ankle ROM, impaired L ankle strength, limping/antalgic gait using 4ww. Pain with WB, standing, walking rated 5/10. Patient reports minimal to no pain at rest. She is wearing a velcro ankle brace some of the time. WBAT L LE using her 4ww. Patient reports hx of cerebellum ataxia with balance issues, hx of falls. She uses 4ww for ambulation out of her apt at baseline. States she does not use the 4ww in her apt as it is small, she will wall/ furniture walk as needed. She was getting home health PT services for about 3 weeks. Then continues with her HEP until getting her cast off on 11/21. Then referred to OP PT. Reviewed her current HEP. Able to progress with L ankle ROM, exercises and some standing/WB activities this session. Tolerated well. L ankle ROM: DF 8 degrees, PF 22 degrees. R ankle ROM: DF 14 degrees, PF 34 degrees. Patient able to hold L ankle against light-mod resistance this session but with some pain, did not formally test with MMT s/p L ankle ORIF surgery. Moderate swelling noted in L foot - patient states she isn't able to get her regular shoes on at this time due to swelling so she is wearing slipper shoes for now . Reviewed elevation and ankle pumps to help decrease swelling. Tubigrip is not an option due to shape of foot/ ankle/lower leg - would not get a good fit without areas of binding. Patient to continue with her HEP for ROM, stretching, WB/standing exercises, and walking with her 4ww. Patient would benefit from skilled PT for pain/swelling management, improved L ankle ROM, improved L ankle/LE mobility/strength, gait/balance/proprioception training, and establishment of HEP. Plan of Care Rehabilitation Potential Good Physical Therapy Goals 1. Decrease L ankle/LE pain to less than/equal to 3/10 with daily activities and with the progression of PT activities over the next 6-8 weeks. 2. Improve L ankle ROM to WFL with DF 10 degrees or greater and PF 30 degrees or greater over the next 6-8 weeks for return to her baseline gait mechanics and PLF with mobility at home and in the community using her 4ww. 3. Improve L ankle/LE strength over the next 10-12 weeks for progression of WB, return to wearing her regular shoes, and return to her baseline level of amb with 4ww when going out and no AD with amb at home per PLF. 4. Improve L ankle/LE balance /proprioception over the next 10-12 weeks for decreased risk of falls and return to PLF with daily activities using 4ww. 5. Patient will be I with HEP within 12 weeks for progression toward above goals, ongoing self management of pain/sx, ongoing self improvements in ROM/strength/ balance/proprioception/gait, and for return to PLF with daily activities and use of 4ww for amb when out in the community. Coordination/Communication With Referral Source Treatment Plan/Direct Interventions Gait Training,Manual Therapy, Therapeutic Exercises Frequency/Duration 1x/week Patient Will Be Discharged From Therapy Completion of LTG(s),Skills Plateau,Independent w/HEP, Independently Progressing Evaluation Billing Untimed Code Treatment Minutes 34 Complexity Moderate Certification Information Initial Certification Date 12/04/23 Ending Certification Date 03/03/24 Provider Signature Required Yes Provider Signature Shows Agreement With POC & Medical Necessity Physician NPI Number Write NPI# Here Physician Comment/Change : Physician Signature & Date Requested Please Sign/Date Here
== END 2024-01-25 15:34 | disposition home or self-care (01) ==
PROVIDERS: Visit Provider Orthopaedic Surgery
DX: Z98.890 Other specified postprocedural states (principal); Z87.81 Personal history of (healed) traumatic fracture; M25.572 Pain in left ankle and joints of left foot; Z74.09 Other reduced mobility; R26.89 Other abnormalities of gait and mobility; Z51.89 Encounter for other specified aftercare
CPT/HCPCS: 97110; 97162

== ENCOUNTER 2024-03-26 04:05 | Emergency (ER) | payer MEDICAID, SELFPAY ==
[2024-03-26 04:10] VITALS: BP 125/84; PULSE 85; RESP 16; TEMP 36.1; O2SAT 97; BMI 43.9
--- NOTE | 2024-03-26 04:59 | ED_ITS ---
HPI - Back Pain/Injury General Date Seen: 03/26/24 Chief Complaint: Back Injury/Pain Stated Complaint: lower back pain Time Seen by Provider: 03/26/24 04:32 Source: patient and family Mode of arrival: ambulatory Limitations: no limitations History of Present Illness HPI Narrative: Patient is a 39-year-old female presents with her friend, with a history of left-sided back pain, she has had this now for 2 weeks, but a little bit worse tonight, she has use Tylenol on off but with no consistency for this. She remembers no injury associated with this she has had no fevers chills no nausea vomiting. She has not fallen. No significant past history of back issues, but she remembers when she was born she was supposed to wear a brace but she did not for the 1st 6 months of her life. She describes pain in her back which travels down her left leg in a posterior side presentation into the left side. It comes right down to her ankle but not to her toes. She has noted no weakness associ ated with this. And worse when she sits better when she stands. She has had no bowel or bladder problems fevers chills she has no history of malignancy. And no recent medical interventions. She does not use any drugs or no significant alcohol. History of cerebellar ataxia. Treatments prior to arrival: acetaminophen Work related injury: No Related Data Home Medications ?Medication ?Instructions ?Recorded ?Confirmed levothyroxine 50 mcg tablet 50 mcg PO DAILY 12/28/22 01/03/24 multivitamin 1 tab PO DAILY 10/04/23 01/03/24 Previous Rx's ?Medication ?Instructions ?Recorded cyclobenzaprine 5 mg tablet 5 mg PO TID PRN muscle spasm #14 03/26/24 tabs prednisone 20 mg tablet 20 mg PO BID #10 tabs 03/26/24 Allergies Allergy/AdvReac Type Severity Reaction Status Date / Time Sulfa (Sulfonamide Allergy Mild Hives Verified 01/03/24 12:26 Antibiotics) Review of Systems Status of ROS: Reports: 10 or more systems reviewed and unremarkable except as noted in History and below [facility] Medical History Cerebellar ataxia ?G11.9 - Hereditary ataxia, unspecified (ICD-10) Anxiety ?F41.9 - Anxiety disorder, unspecified (ICD-10) Obesity (BMI 30-39.9) ?E66.9 - Obesity, unspecified (ICD-10) Insomnia ?G47.00 - Insomnia, unspecified (ICD-10) Cervical dysplasia ?N87.9 - Dysplasia of cervix uteri, unspecified (ICD-10) Hypertriglyceridemia ?E78.1 - Pure hyperglyceridemia (ICD-10) Herpes genitalis ?A60.00 - Herpesviral infection of urogenital system, unspecified (ICD-10) Developmental disorder ?F89 - Unspecified disorder of psychological development (ICD-10) Chronic ankle pain ?M25.579 - Pain in unspecified ankle and joints of unspecified foot (ICD-10) ?G89.29 - Other chronic pain (ICD-10) PTSD (post-traumatic stress disorder) ?F43.10 - Post-traumatic stress disorder, unspecified (ICD-10) Depression ?F32.A - Depression, unspecified (ICD-10) Subclinical hypothyroidism ?E03.8 - Other specified hypothyroidism (ICD-10) Surgical History History of open reduction and internal fixation (ORIF) procedure (10/05/23) ?Z98.890 - Other specified postprocedural states (ICD-10) H/O tubal ligation ?Z98.51 - Tubal ligation status (ICD-10) Hx of cholecystectomy ?Z90.49 - Acquired absence of other specified parts of digestive tract (ICD- 10) Social History Smoking Status: Never smoker How often do you have a drink containing alcohol: never How often do you have six or more drinks on one occasion: Never AUDIT-C Alcohol total score: 0 Non-prescribed substance use: denies use Caffeine: No Are you using contraception or practicing any form of control: No service: No Exam Narrative: Exam Narrative: On examination in room 7 she is in no apparent distress, she is able to stand for me although she has the characteristic bent over posture of someone with cerebellar ataxia. Forward flexion is hands to the floor. Backward extension to her neutral is normal no palpable tenderness on her back on palpation percussion there is no masses no redness or any significant pain she localizes her discomfort to left posterior iliac crest into her left buttock, and down her left leg. Very characteristic of a L5 type dermatome. Reflexes are 0/4 her knees and ankles, she does have good strength in her ankle dorsiflexors plantar flexors knee flexors and extensors, when I look at whether she is bilaterally symmetrical. Sensation is grossly normal. Const: Vital Signs, click to edit/add: Vital Signs - 24 hr 03/26/24 04:10 Temperature 97 F L Pulse Rate [Pulse Oximeter] 85 Respiratory Rate 16 Blood Pressure [Ri ght Upper Arm] 125/84 Pulse Oximetry 97 Oxygen Delivery Me thod Room Air Documenting provider has reviewed patient's vital signs: yes Course Vital Signs Vital signs: Initial Vital Signs Temperature 97 F L 03/26/24 04:10 Temperature Source Temporal Artery Scan 03/26/24 04:10 Pulse Rate 85 03/26/24 04:10 Respiratory Rate 16 03/26/24 04:10 Blood Pressure 125/84 03/26/24 04:10 Blood Pressure Mean 97 03/26/24 04:10 Blood Pressure Position Sitting 03/26/24 04:10 Pulse Oximetry 97 03/26/24 04:10 Oxygen Delivery Method Room Air 03/26/24 04:10 Vital Signs Temperature 97 F L 03/26/24 04:10 Pulse Rate 85 03/26/24 04:10 Respiratory Rate 16 03/26/24 04:10 Blood Pressure 125/84 03/26/24 04:10 Pulse Oximetry 97 03/26/24 04:10 Oxygen Delivery Method Room Air 03/26/24 04:10 Temperature 97 F L 03/26/24 04:10 Pulse Rate 85 03/26/24 04:10 Respiratory Rate 16 03/26/24 04:10 Blood Pressure 125/84 03/26/24 04:10 Pulse Oximetry 97 03/26/24 04:10 Oxygen Delivery Method Room Air 03/26/24 04:10 MDM - Back Pain/Injury MDM Narrative Medical decision making narrative: Life-threatening differential diagnosis considered include: Cauda equina an epidural abscess, other differential diagnosis considered includes sprain, contusion, nerve root entrapment, radiculopathy, muscle spasm, urolithiasis, lumbar fracture, pyelonephritis, appendicitis, biliary colic, as well as other etiologies. The patient denies saddle anesthesia bowel or bladder incontinence or lower extremity weakness, recent weight loss, or history of malignancy. I think it's this is more likely to be a radiculopathy, she does not have a fever no nausea vomiting and no urinary tract symptoms. I think we can go ahead and treat her with some prednisone along with some muscle relaxants, and use of Tylenol more regularly. I would like her to follow up with her primary care physician and consideration of physical therapy. She was comfortable this we went over signs symptoms of worsening, and also informed consent over the medications. Differential Diagnosis Differential diagnosis: Likely lumbar radiculopathy, sciatica, strain of lumbar region, renal colic, pyelonephritis, thoracic back pain, AAA and discitis Medical Records Attestation: I reviewed the patient's medical records. Discharge Plan Discharge Clinical Impression: Lumbar radiculopathy Patient Disposition: Home w/ Parent or Adult Condition: Stable Instructions: Acute Low Back Pain (ED), Lumbar Radiculopathy (ED), Back Pain (ED) Additional Instructions: Home rest medications as directed, follow-up with your primary care physician wi thin 1 weeks time to recheck, no heavy lifting greater than 20 lb, chiropractic manipulation is helpful, as is heat/ice. Continue with Tylenol 1 g by mouth 3 times a day, the muscle relaxants can make you tired please do not combine this with alcohol. Medications via instymeds Activity Level: Light activity Discharge Diet: Regular Prescriptions: New prednisone 20 mg tablet 20 mg PO BID Qty: 10 0RF cyclobenzaprine 5 mg tablet 5 mg PO TID PRN (Reason: muscle spasm) Qty: 14 0RF No Action multivitamin Tablet 1 tab PO DAILY levothyroxine 50 mcg tablet 50 mcg PO DAILY Follow Up/Referrals: Provider,Not a Local [Primary Care Provider] - Stand Alone Forms: [facility] Info Instructions
[2024-03-26] MEDS: ACETAMINOPHEN 500 MG TABLET 1000 MG PO (05:02)
== END 2024-03-26 05:09 | disposition home or self-care (01) ==
PROVIDERS: Emergency Provider Family Medicine
DX: M54.16 Radiculopathy, lumbar region (principal)
CPT/HCPCS: 99283; 99284; A9270

== ENCOUNTER 2025-01-06 08:37 | Outpatient (CLI) | payer MEDICAID, SELFPAY | END 2025-01-06 08:38 | disposition home or self-care (01) | LOC: AMB 01-08 08:45 | PROVIDERS: Visit Provider Emergency Medicine | DX: R06.09 Other forms of dyspnea (principal); R07.89 Other chest pain | CPT/HCPCS: A0425; A0427 ==

== ENCOUNTER 2025-01-06 09:13 | Emergency (ER) | payer MEDICAID, SELFPAY ==
[2025-01-06] VITALS (11 sets, daily range): BP systolic 133–156; BP diastolic 81–90; PULSE 74–86; RESP 16; TEMP 36.8; O2SAT 92–98; BMI 51.2
--- OUTSIDE RECORDS SUMMARY | 2025-01-06 09:21 | XMS_ITS | Clinical Summary ---
Author Organization [employer] [facility] Address [address] [place] [id number] Care Team Providers Care Graphic Coordinator Name Role Phone Emile Myers MD Unavailable [phone] Rodrigo Fox MD Primary Care Provider Allergies Active Allergy Reactions Criticality Noted Date Comments Sulfa (Sulfonamide Antibiotics) Hives 01/25 Medications multivitamin (MVI) tablet Take 1 Tablet by mouth once daily. 0 08/19/19 23 Active ferrous gluconate 324 mg (37 mg iron) tabletIndicatio ns:Iron deficiency Take 1 Tablet by mouth three times daily with meals. 100 Tablet 3 04/10/19 25 Active chlorhexidine (HIBICLENS) 4 % external liquidIndicatio ns:Hidradenitis suppurativa Use as body wash daily as needed. Avoid contact with eyes and inside ears. 118 mL 2 10/22/19 25 Active clindamycin (CLEOCIN-T) 1 % lotionIndicatio ns:Hidradenitis suppurativa Apply a thin layer 1-2 times daily to affected areas as needed 60 mL 11 10/22/19 25 Active levothyroxine (SYNTHROID) 88 mcg tabletIndicatio ns:Hypothyroidi sm (acquired) Take 1 Tablet (88 mcg) by mouth before breakfast. 30 Tablet 1 12/27/19 25 Active phentermine (IONAMIN) 15 mg capsuleIndicati ons:Class 3 severe obesity with serious comorbidity and body mass index (BMI) of 45.0 to 49.9 in adult, unspecified obesity type (HC) Take 1 Capsule (15 mg) by mouth once daily before a meal. 30 Capsule 12/27/19 25 Active levothyroxine (SYNTHROID) 75 mcg tabletIndicatio ns:Hypothyroidi sm (acquired) TAKE 1 TABLET(75 MCG) BY MOUTH BEFORE BREAKFAST 30 Tablet 1 10/29/19 25 025 Discontinu ed(*Medica tion adjustment ) doxycycline 100 mg tabletIndicatio ns:Abscess of abdominal wall Take 1 Tablet (100 mg) by mouth two times daily for 5 days. 10 Tablet 12/24/19 25 025 tirzepatide (weight loss) (Zepbound) 2.5 mg/0.5 mL penIndications: Class 3 severe obesity with body mass index (BMI) of 45.0 to 49.9 in adult (HC) Inject 2.5 mg subcutaneous once weekly for 28 days. 2 mL 12/24/19 25 025 Discontinu ed(*Availa bility/For mulary change/Cos t of medication ) tirzepatide (weight loss) (Zepbound) 5 mg/0.5 mL penIndications: Class 3 severe obesity with body mass index (BMI) of 45.0 to 49.9 in adult (HC) Inject 5 mg subcutaneous once weekly for 28 days. 2 mL 01/21/20 25 025 Discontinu ed(*Availa bility/For mulary change/Cos t of medication ) Active Problems Problem Noted Date Diagnosed Date Class 3 severe obesity with body mass index (BMI) of 45.0 to 49.9 in adult 12/23/2024 Cerebellar ataxia 04/05/2024 Overview (04/05/2024): Progressive ataxia in adulthood and developmental delay. MRI with cerebellar atrophy. Sister has cerebellar ataxia diagnosed in childhood. Underwent genetic testing through [facility] 11/14/23: Georgiana Ricketts underwent whole genome sequencing through [facility]. Testing included the patient's mother. 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 Given Georgiana's personal history of cerebellar ataxia and developmental disorder, we reviewed that this result is likely the explanation for her symptoms. Prediabetes 10/03/2023 Class 3 severe obesity due t o excess calories without serious comorbidity with body mass index (BMI) of 40.0 to 44.9 in adult 10/03/2023 Hypothyroidism (acquired) 03/08/2021 Depression 02/20/2015 Hidradenitis 02/10/2015 Anxiety 05/25/2013 Insomnia 09/18/2012 History of cervical dysplasia 09/18/2012 Developmental disorder 09/18/2012 Overview (02/21/2022): date unknown [facility] Record Searcher: Blossom Leone 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 Overview (10/03/2023): date unknown [facility] Record Searcher: Blossom Leone Herpes genitalis 04/12/2012 Hypertriglyceridemia 01/03/2012 Resolved Problems Problem Noted Date Diagnosed Date Resolved Date Obesity (BMI 30-39.9) 02/10/20152023 Encounters Date Type Department Care Team Description 01/02/2025 1:55 PM CDT - 01/02/2025 11:59 PM CDT Hospital Encounter [facility] [address] [place] [address] [address] [place] [address] Angela Garrett MD Reed, Allie, PT 01/02/2025 Travel 12/26/2024 Refill [facility] [address] [place] [address] Angela Garrett MD Refill Request (Levothyroxine) 12/23/2024 1:05 PM CDT Office Visit [facility] [address] [place] [address] Angela Garrett MD Concerns (weight loss and flu shot); Immunization/Injecti on 12/23/2024 Telephone [facility] [address] [place] [address] Angela Garrett MD Prior Authorization (tirzepatide (weight loss) (Zepbound) 2.5 mg/0.5 mL pen DENIED) 12/22/2024 Travel 12/02/2024 1:35 PM CDT - 12/02/2024 11:59 PM CDT Hospital Encounter [facility] [address] [place] [address] [address] [place] [address] Angela Garrett MD Reed, Allie, PT 12/02/2024 Travel 10/24/2024 Refill [facility] [address] [place] [address] Rodrigo Fox MD Refill Request (Levothyroxine) 10/21/2024 3:15 PM CDT Office Visit [facility] [address] [address] Leanne Meek, DO Derm Problem 10/20/2024 Travel 10/18/2024 1:08 PM CDT - 10/18/2024 11:59 PM CDT Hospital Encounter [facility] [address] [place] [address] [address] [place] [address] Angela Garrett MD Reed, Allie, PT Stress incontinence 10/18/2024 Travel from Last 3 Months Immunizations Immunization Administration Dates Next Due COVID-19 vaccine (Moderna 100mcg/0.5mL) PF, MDV 08/14/2020,07/17/2020 COVID-19 vaccine (Pfizer-Bio NTech 30mcg/0.3mL) 12YO+ BIVALENT PF, MDV 02/21/2022 COVID-19 vaccine (Pfizer-Bio NTech 30mcg/0.3mL) PF, MDV 03/08/2021,03/08/2021 DT (Age < 7 years) 10/20/2008 DTaP 11/13/2001, 9,1987,1987,1987 HIB-HepB (Comvax) 02/20/2002 Hepatitis B (Adult) 11/21/2000,03/07/2000,1999 Hepatitis B, Unspecified 11/21/2000,03/07/2000,1 Human Papilloma Virus Vaccine 12/20/2011, 012,03/08/2011 INFLUENZA, IIV3 PF (AGE >= 6 MO) 12/23/2024,03/27 Inactivated Polio Vaccine 11/14/1991,,04/16/1988,1987,1987 Influenza A (H1N1), [...] Answer Date Recorded PHQ-2 TOTAL SCORE 3 09/16/2024 Social Connections Answer Date Recorded Do you often feel lonely or isolated from those around you? 0 12/23/2024 Alcohol Use Answer Date Recorded Frequency of Alcohol Consumption Not on file 12/23/2024 Average Number of Drinks Not on file 025 How often do you have five or more drinks on one occasion? 0 12/23/2024 Financial Resource Strain Answer Date R ecorded Difficulty of Paying Living Expenses 3 12/23/2024 Difficulty of Paying Living Expenses Not on file 12/23/2024 Food Insecurity Answer Date Recorded Do you worry your food will run out before you are able to buy more? 1 12/23/2024 Transportation Needs Answer Date Record ed Does lack of transportation keep you from medica l appointments? 1 12/23/2024 Does lack of transportation keep you from work, meetings or getting things that you need? 1 12/23/2024 Housing Stability Answer Date Recorded What is your housing situation today? 1 12/23/2024 Utilities Answer Date Recorded Do you have trouble paying f or utilities (for example, heat, electricity, water, phone)? 1 12/23/2024 Comments No Sex and Gender Information Value Date Recorded Sex Assigned at Not on file Legal Sex Female 8:42 AM BROADCAST CHIEF ENGINEER Gender Identity Not on file Sexual Orientation Not on file Occupation Industry Job Start Date Job End Date Unemployed Not on file Not on file Not on file Obstetrics History Para Term AB IAB SAB Ectopic Multiple Livin g Live Births 2 2 2 2 2 Date Outcome GA Total Labor Labor/2nd/3rd Weight Sex Type Anes PTL Nathaly A1 A5 Name Clin 2008 35w 0d M Vag Living 2018 36w 2d M Vag Living Delivery Location:[place] Last Filed Vital Signs Vital Sign [place] Time Taken Comments Blood Pressure 126/86 12/23/2024 12:27 PM CDT Pulse 88 12/23/2024 12:27 PM CDT Temperature 36.8 C (98.3 F) 12/23/2024 12:27 PM CDT Respiratory Rate 20 12/24/2021 11:25 AM CDT Oxygen Saturation 96% 12/23/2024 12:27 PM CDT Inhaled Oxygen Concentration - - Weight 112 kg (247 lb) 12/23/2024 12:27 PM CDT Height 150.5 cm (4' 11.25) 12/23/2024 12:27 PM CDT Body Mass Index 49.46 12/23/2024 12:27 PM CDT Plan of Treatment Upcoming Encounters Date Type Department Care Team (Late st Contact Info) Description 01/21/2025 2:45 PM CDT Office Visit [facility] [address] [address] [place] [address] [place], [place] [id number] 01/23/2025 9:15 AM CDT Appointment [facility] [address] [place] [address] [address] [place] [address] Zonia Funk, PT [address] [address] 02/13/2025 3:15 PM BROADCAST CHIEF ENGINEER Appointment [facility] [address] [facility] [address] [place] [address] Zonia Funk, PT [address] [phone] 03/06/2025 3:15 PM BROADCAST CHIEF ENGINEER Appointment [facility] [address] [place] [address] Zonia Funk, PT [address] [address] Health Maintenance Due Date Last Done Comments COVID-19 vaccine series ( season) 2024 02/21/2022, 03/08/2021, 03/08/2021, Additional history exists Depression screening for age 12+ 09/16/2025 09/16/2024, 02/06/2023, 02/21/2022 BMI (ht and wt on same day) for age 18+ 12/23/2025 12/23/2024, 09/16/2024, 02/06/2023, Additional history exists Pap test for age 21-65 03/08/2026 (Verified in Care Everywhere or Patient Record) Tetanus booster 01/18/2031 01/18/2021, 09/24/2003 RSV vaccine for adults or (1 - 1-dose 75+ series) 2062 Hepatitis B series for 19+ Completed 02/20, 11/21/2000, 11/21/2000, Additional history exists HPV series for age 9-45 Completed 12/20/19 12, 05/25/2011, 03/08/2011 HIV for age 15-65 Addressed 04/10/2012 (Ve rified in Care Everywhere or Patient Record) Overridden with the intention of not completing the topic Hepatitis C screening for age 18-79 Completed 02/06/2023 Influenza Vaccine Completed 12/23/2024, , 02/06/2023, Additional history exists Pneumococcal series for age 6-49 Aged Out No longer eligible b ased on patient's age to complete this topic Procedures Procedure Name Priority Date/Time Associated Diagnosis Comments T4,FREE Routine 12/23/2024 1:30 PM CDT Subclinical hypothyroidism TSH Routine 12/23/2024 1:30 PM CDT Subclinical hypothyroidism HEMOGLOBIN A1C Routine 12/23/2024 1:30 PM CDT Class 3 severe obesity with body mass index (BMI) of 45.0 to 49.9 in adult (HC) COMP METABOLIC PANEL Routine 12/23/2024 1:30 PM CDT Class 3 severe obesity with body mass index (BMI) of 45.0 to 49.9 in adult (HC) ANTI HCV Routine 02/06/2023 4:16 PM BROADCAST CHIEF ENGINEER Need for hepatitis C screening test from Last 3 Months or Most Recently Relevant to Health Maintenance Results * (ABNORMAL) HEMOGLOBIN A1C (12/23/2024 1:30 PM CDT) HEMOGLOBIN A1C 6.1(H) <5.7 % 12/24/2024 4:23 AM CDT [facility] Comment: For someone without known diabetes, a hemoglobin A1c value between 5.7% and 6.4% is consistent with prediabetes and should be confirmed with a follow-up test. For someone with known diabetes, a value <7% indicates that their diabetes is well controlled. A1c targets should be individualized based on duration of diabetes, age, comorbid conditions, and other considerations. This assay result is consistent with an increased risk of diabetes. Currently, no consensus exists regarding use of hemoglobin A1c for diagnosis of diabetes for children. Blood BLOOD SPECIMEN / Unknown [facility] / Unknown 12/23/2024 1:30 PM CDT 12/23/2024 1:31 PM CDT Angela Garrett MD CHEMISTRY Final Resul t Performing Organization Address [facility] de Phone Number [facility] [address] [address], * (ABNORMAL) TSH (12/23/2024 1:30 PM CDT) Pathologist [facility] TSH 11.41(H) mIU/L 12/24/2024 4:16 AM CDT [facility] Comment: Reference Range > or = 20 Years 0.40-4.50 Ranges First trimester 0.26-2.66 Second trimester 0.55-2.73 Third trimester 0.43-2.91 Blood BLOOD SPECIMEN / Unknown [facility] / Unknown 12/23/2024 1:30 PM CDT 12/23/2024 1:31 PM CDT Angela Garrett MD CHEMISTRY Final Resul t Performing Organization Address [facility] Co de Phone Number [facility] [address] [address], [place] [phone] * T4,FREE (12/23/2024 1:30 PM CDT) T4, FREE 0.9 0.8 - 1.8 ng/dL 12/24/2024 4:16 AM CDT [facility] Blood BLOOD SPECIMEN / Unknown [facility] / Unknown 12/23/2024 1:30 PM CDT 12/23/2024 1:31 PM CDT us Angela Garrett MD CHEMISTRY Final Resul t [facility] [address] [place] [address], [place] [phone] * (ABNORMAL) COMP METABOLIC PANEL (12/23/2024 1:30 PM CDT) SODIUM 138 135 - 146 mmol/L 12/24/2024 4:16 AM CDT [facility] POTASSIUM 4.4 3.5 - 5.3 mmol/L 12/24/2024 4:16 AM CDT [facility] CHLORIDE 98 98 - 110 mmol/L 12/24/2024 4:16 AM CDT [facility] CARBON DIOXIDE 31 20 - 32 mmol/L 12/24/2024 4:16 AM CDT [facility] GLUCOSE 106(H) 65 - 99 mg/dL 12/24/2024 4:16 AM CDT [facility] Comment: Fasting reference interval For someone without known diabetes, a glucose value between 100 and 125 mg/dL is consistent with prediabetes and should be confirmed with a follow-up test. CALCIUM 9.5 8.6 - 10.2 mg/dL 12/24/2024 4:16 AM CDT [facility] CREATININE 0.56 0.50 - 0.97 mg/dL 12/24/2024 4:16 AM CDT [facility] BUN/CREATININE RATIO 9 6 - 22 (calc) 12/24/2024 4:16 AM CDT [facility] EGFR 120 > OR = 60 mL/min/1.7 3m2 12/24/2024 4:16 AM CDT [facility] ALBUMIN 4.1 3.6 - 5.1 g/dL 12/24/2024 4:16 AM CDT [facility] PROTEIN, TOTAL 7.9 6.1 - 8.1 g/dL 12/24/2024 4:16 AM CDT [facility] BILIRUBIN, TOTAL 0.4 0.2 - 1.2 mg/dL 12/24/2024 4:16 AM CDT [facility] ALKALINE PHOSPHATASE 81 31 - 125 U/L 12/24/2024 4:16 AM CDT [facility] ALT 36(H) 6 - 29 U/L 12/24/2024 4:16 AM CDT [facility] AST 47(H) 10 - 30 U/L 12/24/2024 4:16 AM CDT [facility] UREA NITROGEN (BUN) 5(L) 7 - 25 mg/dL 12/24/2024 4:16 AM CDT [facility] GLOBULIN 3.8(H) 1.9 - 3.7 g/dL (calc) 12/24/2024 4:16 AM CDT [facility] ALBUMIN/GLOBULIN RATIO 1.1 1.0 - 2.5 (calc) 12/24/2024 4:16 AM CDT [facility] Blood BLOOD SPECIMEN / Unknown [facility] / Unknown 12/23/2024 1:30 PM CDT 12/23/2024 1:31 PM CDT us Angela Garrett MD CHEMISTRY Final Resul t Performing Organization Address City/[facility]/ZIP Co de Phone Number [facility] [address] [address], * ANTI HCV (02/06/2023 4:16 PM BROADCAST CHIEF ENGINEER) HEPATITIS C ANTIBODY Non-Reacti ve Non-React lucille 02/06/2023 10:57 PM BROADCAST CHIEF ENGINEER [facility] Comment:Please note, per www .CDC.gov: If a patient is known to be at high risk of HCV infection, or is symptomatic, and the physician's suspicion of HCV infection is high, HCV RNA testing is often employed and is of diagnostic value, even after an initial negative anti-HCV test result. Blood BLOOD SPECIMEN / Unknown Venipuncture / Unknown 02/06/2023 4:16 PM BROADCAST CHIEF ENGINEER 02/06/2023 4:18 PM BROADCAST CHIEF ENGINEER us Rodrigo Fox MD SEND OUTS Final R esult [facility] [address] [place] [address], from Last 3 Months or Most Recently Relevant to Health Maintenance [place] [address] [place] [address] [address] [address] [address] [facility] [address] [facility] Care Teams Graphic Coordinator Relationship Specialty [place] [address] [place] [address] PCP - General Family Practice 02/06/23 Emile Myers MD [address] [place] [address] Family Practice 12/24/21
--- OUTSIDE RECORDS SUMMARY | 2025-01-06 09:21 | XMS_ITS | Clinical Summary ---
Author Organization [facility] Address [address] [place] [id number] Care Team Providers Care Water Pollution Control Technician Name Role Phone Elsewhere, Pcp Primary Care Provider Unavailabl e Source Comments Patient records contain information from all sites at [facility]. For routine questions regarding patient records, call [phone] during business hours, M-F 8:00 AM - 5:00 PM Central Time. Record requests for emergency care only can be directed to [phone] at any time.[facility] Allergies Active Allergy Reactions Criticality Noted Date Comments Adhesive Itching 04/03/2023 Redness Sulfa (Sulfonamide Antibiotics) Hives (Reselect Reaction) 08/06/2008 Medications multivitamin (multivitamin) tablet Take 1 tablet by [...] In Childhood 09/18/2012 Overview (12/17/2020): date unknown [facility] Control Officer: Blossom Leone Insomnia 09/18/2012 Dysthymia 08/31/2012 Overview (08/16/2016): Dysthymic Disorder Herpes Genitalis 04/12/2012 Hypertriglyceridemia 01/03/2012 Hidradenitis Suppurativa 08/04/2010 Overview (12/17/2020): date unknown Immunizations Immunization Administration Dates Next Due 4vHPV (discontinued) 12/20/2011,05/25/2011,03/08 [...] Grandmother Multiple myeloma Maternal Grandmother d. Brain tumor Mother Hearing loss Mother later in life, wears hearing aids Hypertension Mother Diabetes Mother's Brother 1 Diabetes Mother's Brother 2 Diabetes Mother's Brother 3 Learning disabilities Mother's Brother 3 Ataxia Sister Genetic disorder Sister has had gen etic testingataxia panels [...] 0.6 oz pur e alcohol) 1-2x week [facility] Utilities Answer Date Recorded In the past 12 months has th e electric, gas, oil, or water company threatened to shut off services in your home? No 05/04/2023 Hunger Vital Sign Answer Date Recorded [...] things needed for daily living? No 05/04/2023 Housing Stability Answer Date Recorded What is your living situation today? I have a [facility] place to live 05/04/2023 Comments No Sex and Gender Information Value Date Recorded Sex Assigned at Female 05/04/2023 11:55 PM MUSHROOM PICKER Legal Sex Female 7:36 PM [employer]HROOM PICKER Gender Identity Female 05/04/2023 11:55 PM MUSHROOM PICKER Sexual Orientation Straight 05/04/2023 11 :55 PM MUSHROOM PICKER Last Filed Vital Signs Vital Sign Reading Time Taken Comments Blood Pressure 131/82 04/05/2023 8:08 AM MUSHROOM PICKER Pulse 76 04/05/2023 8:08 AM MUSHROOM PICKER Temperature 36.8 C (98.2 F) 10/10/2021 7:12 PM CDT Respiratory Rate 19 10/10/2021 9:00 PM CDT Oxygen Saturation 95% 10/10/2021 9:00 PM CDT Inhaled Oxygen Concentration - - Weight 93.2 kg (205 lb 5.7 oz) 04/05/2023 8:08 A M MUSHROOM PICKER Height 149.7 cm (4' 10.94) 04/05/2023 8:[address] Body Mass Index 41.57 04/05/2023 8:08 AM MUSHROOM PICKER Plan of Treatment Health Maintenance Due Date Last Done Comments Hepatitis C Screening 1985 Lipid (Cholesterol) Screening 02/07/2024 02/06/2023, 03/08/2021, 04/30/2013, Additional history exists Depression Screening (Annual PHQ-2) 03/27/2024 COVID-19 Vaccine ( season) 2024 02/21/2022, 03/08/2021, 08/14/2020, Additional history exists Influenza Vaccine (#1) 2024 , 02/06/2023, 02/21/2022, Additional history exists Thyroid Stimulating Hormone (TSH) test for thyroid function 09/16/2025 09/16/2024, 04/05/2024, 08/18/2022, Additional history exists Cervical/Vaginal Cancer Screening 03/08/2026 03/08/2021, 03/08/2021, 09/15/2015, Additional history exists DTaP,Tdap,and Td Vaccines (9 - Td or Tdap) 01/18/2031 01/18/2021, 10/20/2008, 09/24/2003, Additional history exists IPV Vaccines Completed 11/14/1991, 04/28, 04/16/1988, Additional history exists Hepatitis B Vaccines Completed 02/20/2002, 11/21/2000, 11/21/2000, Additional history exists HPV Vaccines Completed 12/20/2011, 04/28, 03/08/2011 HIV Screening Completed 04/10/2012 Pneumococcal vaccine (0-49 years) Aged Out No longer eligible based on patient's age to complete this topic Procedures Procedure Name Priority Date/Time Associated Diagnosis Comments HPV WITH GENOTYPING, PCR, THINPREP Routine 03/08/2021 5:03 PM MUSHROOM PICKER THYROID-STIMULATING HORMONE-SENSITIVE (S-TSH) Routine 03/08/2021 4:50 PM MUSHROOM PICKER Hypothyroidism LIPID PANEL, S Routine 03/08/2021 4:45 PM MUSHROOM PICKER Hypertriglyceridemi a HXZZORDERS Routine 04/10/2012 3:55 PM MUSHROOM PICKER from Last 3 Months or Most Recently Relevant to Health Maintenance Results * HPV with Genotyping, PCR, ThinPrep (03/08/2021 5:03 PM MUSHROOM PICKER) Specimen Source Thin Prep Vial, Cervix/Endoc ervix 03/10/2021 3:36 PM MUSHROOM PICKER DTL HPV High Risk type 16, PCR Negative Negative 03/10/2021 3:36 PM MUSHROOM PICKER DTL HPV High Risk type 18, PCR Negative Negative 03/10/2021 3:36 PM MUSHROOM PICKER DTL HPV other High Risk types, PCR Negative Negative 03/10/2021 3:36 PM MUSHROOM PICKER DTL Comment: The following Other High Risk HPV types were not detected: 31, 33, 35, 39, 45, 51, 52, 56, 58, 59, 66, and 68 This test was ordered in the context of a [facility] CONSTRUCTION PLUMBER Cytology case; this result should be interpreted within the context of the CONSTRUCTION PLUMBER cytology report. Varies 03/08/2021 5:03 PM MUSHROOM PICKER 03/09/2021 10:54 AM MUSHROOM PICKER Narrative [facility] - 03/10/2021 3:36 PM MUSHROOM PICKER Specimen Information: Specimen ID: [id number] Specimen Type: Varies Specimen Collection Start Date: 03/08/2021 5:03 PM Specimen Received Date: 03/09/2021 10:54 AM Specimen ID: [id number] Specimen Type: Varies Sue Martinez LAB MICROBIOLOGY - GENERAL O RDERABLES Final Result Performing Organization Address City/State/[facility] Co de Phone Number [facility] [address] [place] [address], [facility] [address] [place] [address] * (ABNORMAL) S-TSH (Thyroid-Stimulating Hormone - Sensitive) (03/08/2021 4:50 PM MUSHROOM PICKER) Pathologist [facility] TSH, Sensitive 8.0(H) 0.3 - 4.2 mIU/L 03/08/2021 5:59 PM MUSHROOM PICKER CNFL Comment:Testing performed on serum Blood (Blood, Venous) 03/08/2021 4:50 PM MUSHROOM PICKER 03/08/2021 4:51 PM MUSHROOM PICKER Cyndee Burton APRN, C.N.P., D.N.P. LAB BLOOD A DD-ON Final Result Performing Organization Address City/[facility]/ZIP Co de Phone Number [facility] [address] [place] [id number], [place] [address] * (ABNORMAL) Lipid Panel (03/08/2021 4:45 PM MUSHROOM PICKER) [facility] Signature Cholesterol, Total 178 mg/dL 2020 5:12 PM MUSHROOM PICKER CNFL Comment: ----REFERENCE VALUE---- Desirable: < 200 Borderline high: 200 - 239 High: > or = 240 Triglycerides 194(H) mg/dL 03/08/2021 5:12 PM MUSHROOM PICKER CNFL Comment: ----REFERENCE VALUE---- Normal: <150 Borderline high: 150-199 High: 200-499 Very high: > or =500 Cholesterol, HDL 37(L) >=50 mg/dL 03/08/20 5:12 PM MUSHROOM PICKER CNFL Calculated LDL 102 mg/dL 03/08/2021 5:12 PM MUSHROOM PICKER CNFL Comment: ----REFERENCE VALUE---- Desirable: <100 mg/dL Above Desirable: 100-129 mg/dL Borderline High: 130-159 mg/dL High: 160-189 mg/dL Very High: >=190 mg/dL Cholesterol, Non-HDL, Calculated 141 mg/dL 03/08/2021 5:12 PM MUSHROOM PICKER CNFL Comment: ----REFERENCE VALUE---- Desirable: <130 Above Desirable: 130-159 Borderline high: 160-189 High: 190-219 Very high: > or =220 Blood (Blood, Venous) 03/08/2021 4:45 PM MUSHROOM PICKER 03/08/2021 4:59 PM MUSHROOM PICKER us Sue Martinez LAB BLOOD ADD-ON Final Resul t [facility]- [address] [address], [place] [address] * HXZZORDERS (04/10/2012 3:55 PM MUSHROOM PICKER) HIV-1/-2 Antibody Negative Negative POWERCHART Comment: Negative [...] is negative. Testing is performed using the Sepiors Anti-HIV 1+2 chemiluminescence immunoassay. Test Performed by: [facility] [address] [place] [address] Paper Core Machine Operator: Jimmy Link III, M.D. Blood 04/10/2012 3:55 PM MUSHROOM PICKER Charity Vasquez APRN, C.N.P., D.N.P. LAB HIST ORICAL ORDERS Final Result POWERCHART from Last 3 Months or Most Recently Relevant to Health Maintenance Insurance [facility] Care Teams Water Pollution Control Technician Relationship Specialty Start Date End Date Elsewhere, Pcp PCP - General Internal Medicine 10/09/24
--- NOTE | 2025-01-06 10:10 | CRLHL7_ITS ---
For Patients: As a result of the Cures Act, medical imaging exams and procedure reports are released immediately into your electronic medical record. You may view this report before your referring provider. If you have questions, please contact your health care provider. INDICATION: Fine bathtub. Impact under right breast. COMPARISON: None TECHNIQUE: A single view the chest was acquired as well as 2 additional images of the right ribcage. FINDINGS: TUBES AND LINES: None. HEART AND MEDIASTINUM: The heart size is normal. The mediastinal contour appears normal for patient age. LUNGS AND PLEURAL SPACES: There is a 1.3 centimeter right upper lobe nodule. This is unlikely to be related to the patient`s recent injury. Recommend a CT for further evaluation at a clinically appropriate time.The pleural spaces are unremarkable. OSSEOUS STRUCTURES: No visible right rib fracture. Scoliosis. IMPRESSION: 1. There is a 1.3 centimeter right upper lobe lung nodule. This is unlikely to be related to the patient`s recent injury. Recommend a CT for further evaluation at a clinically appropriate time. 2. No pleural effusion or pneumothorax. 3. No visible right rib fracture. Dictated by Magdi Pickett MD @ 01/06/2025 10:36:07 AM (Electronically Signed)
--- NOTE | 2025-01-06 10:11 | ED_ITS ---
HPI - General Adult General Chief complaint: Rib Pain Stated complaint: rib injury from fall Time Seen by Provider: 01/06/25 10:00 Source: patient Mode of arrival: ambulatory Limitations: no limitations History of Present Illness HPI narrative: 39-year-old female presenting today with anterior right rib pain. Patient states that she fell yesterday morning when she was getting into her bath tub and hit her anterior chest wall on the tip of the top. Denies nausea or vomiting. She is not short of breath. Patient has a history of cerebral ataxia, does have frequent falls and uses a walker. She does live inde pendently. 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 ataxia, unspecified (ICD-10) Anxiety ?F41.9 - Anxiety disorder, unspecified (ICD-10) Obesity (BMI 30-39.9) ?E66.9 - Obesity, unspecified (ICD-10) Insomnia ?G47.00 - Insomnia, unspecified (ICD-10) Cervical dysplasia ?N87.9 - Dysplasia of cervix uteri, unspecified (ICD-10) Hypertriglyceridemia ?E78.1 - Pure hyperglyceridemia (ICD-10) Herpes genitalis ?A60.00 - Herpesviral infection of urogenital system, unspecified (ICD-10) Developmental disorder ?F89 - Unspecified disorder of psychological development (ICD-10) Chronic ankle pain ?M25.579 - Pain in unspecified ankle and joints of unspecified foot (ICD-10) ?G89.29 - Other chronic pain (ICD-10) PTSD (post-traumatic stress disorder) ?F43.10 - Post-traumatic stress disorder, unspecified (ICD-10) Depression ?F32.A - Depression, unspecified (ICD-10) Subclinical hypothyroidism ?E03.8 - Other specified hypothyroidism (ICD-10) Surgical History History of open reduction and internal fixation (ORIF) procedure (10/05/23) ?Z98.890 - Other specified postprocedural states (ICD-10) H/O tubal ligation ?Z98.51 - Tubal ligation status (ICD-10) Hx of cholecystectomy ?Z90.49 - Acquired absence of other specified parts of digestive tract (ICD- 10) Social History Smoking Status: Never smoker How often do you have a drink containing alcohol: never How often do you have six or more drinks on one occasion: Never AUDIT-C Alcohol total score: 0 Non-prescribed substance use: denies use Caffeine: No Are you using contraception or practicing any form of control: No service: No Exam Narrative: Exam Narrative: Obese, well-developed patient in no acute distress. Alert and oriented. Answers questions appropriately. Patient speaks in full sentences without needing to catch her breath. HEENT: Normocephalic atraumatic. Pupils are equally round reactive to light. Extraocular muscles are intact. Conjunctivae are moist without any icterus noted. Moist mucous membranes. Cardiovascular: Heart is regular rate and rhythm . Lungs: Clear to auscultation bilaterally no wheezes rhonchi or rales are appreciated. Deep breaths do not significantly increase her discomfort. She has tenderness over the anterolateral chest wall just distal to the breast, over an area several inches in diameter. No flank pain. No right upper quadrant abdominal pain. Abdomen: Soft and nontender nondistended with normal bowel sounds. No tenderness with firm palpation over the liver. Skin: Well perfused. Const: Vital Signs, click to edit/add: Vital Signs - 24 hr 01/06/25 09:19 01/06/25 09:20 01/06/25 09:25 Temperature 98.3 F Pulse Rate 86 83 Pulse Rate [Pulse Oximeter] 85 Respiratory Rate 16 Blood Pressure 137/81 Blood Pressure [Ri ght Upper Arm] 133/81 Pulse Oximetry 97 97 97 Oxygen Delivery Me thod Room Air 01/06/25 09:30 01/06/25 09:45 01/06/25 10:00 Temperature Pulse Rate 76 78 80 Pulse Rate [Pulse Oximeter] Respiratory Rate Blood Pressure Blood Pressure [Ri ght Upper Arm] Pulse Oximetry 95 93 92 Oxygen Delivery Me thod 01/06/25 10:15 Temperature Pulse Rate 74 Pulse Rate [Pulse Oximeter] Respiratory Rate Blood Pressure Blood Pressure [Ri ght Upper Arm] Pulse Oximetry 95 Oxygen Delivery Me thod Course Course ED Course: Rib x-rays obtained-no visible rib fractures seen. Unrelated to her pain, she does have a 1.3 cm right upper lobe nodule. Vital Signs Vital signs: Initial Vital Signs Pulse Rate 86 01/06/25 09:19 Blood Pressure 137/81 01/06/25 09:19 Blood Pressure Mean 99 01/06/25 09:19 Pulse Oximetry 97 01/06/25 09:19 Vital Signs Pulse Rate 86 01/06/25 09:19 Blood Pressure 137/81 01/06/25 09:19 Pulse Oximetry 97 01/06/25 09:19 Temperature 98.3 F 01/06/25 09:25 Pulse Rate 74 01/06/25 10:15 Respiratory Rate 16 01/06/25 09:25 Blood Pressure 133/81 01/06/25 09:25 Pulse Oximetry 95 01/06/25 10:15 Oxygen Delivery Method Room Air 01/06/25 09:25 Medical Decision Making MDM Narrative Medical decision making narrative: 39-year-old female status post fall with anterior chest wall pain likely secondary to contusion. We discussed symptomatic treatment. Pulmonary nodule follow-up with primary care. We had a discussion today about her falling and patient states that she does not feel that her falls have been more frequent than usual and she does not feel that further workup is necessary to assess this. Imaging Data Chest x-ray: Attestation: I have reviewed the pertinent imaging results. Radiologist's impression: TECHNIQUE: A single view the chest was acquired as well as 2 additional images of the right ribcage. FINDINGS: TUBES AND LINES: None. HEART AND MEDIASTINUM: The heart size is normal. The mediastinal contour appears normal for patient age. LUNGS AND PLEURAL SPACES: There is a 1.3 centimeter right upper lobe nodule. This is unlikely to be related to the patient`s recent injury. Recommend a CT for further evaluation at a clinically appropriate time.The pleural spaces are unremarkable. OSSEOUS STRUCTURES: No visible right rib fracture. Scoliosis. IMPRESSION: 1. There is a 1.3 centimeter right upper lobe lung nodule. This is unlikely to be related to the patient`s recent injury. Recommend a CT for further evaluation at a clinically appropriate time. 2. No pleural effusion or pneumothorax. 3. No visible right rib fracture. Discharge Plan Discharge Clinical Impression: Fall, Chest wall contusion Patient Disposition: Home, Self-Care Condition: Stable Instructions: Chest Contusion (ED) Additional Instructions: Okay to apply heat to the chest wall where it hurts. Do not apply heat directly to the skin it do not apply for more than 20 minutes at a time every 1-2 hours. Okay to use ibuprofen up to 600 mg \3 times per day as needed-this should be taken with food. Or take Tylenol up to 1000 mg 3 times per day as needed. No rib fracture was seen on the x-ray. There is a small pulmonary nodule that was seen on your x-ray today. This is usually a benign finding. However, you should discuss this with your primary care provider, as a CT scan is usually done to further characterize what this nodule is. This is not an emergency. We will send you home today with a report of your CT scan so you can share it with your doctor. Prescriptions: No Action phentermine 15 mg capsule 15 mg PO DAILY levothyroxine 88 mcg tablet 88 mcg PO DAILY ferrous gluconate 324 mg (38 mg iron) tablet 324 mg PO 3XD Follow Up/Referrals: Provider,Not a Local [Primary Care Provider, Family Practice] Stand Alone Forms: [employer] Info Instructions
--- OUTSIDE RECORDS SUMMARY | 2025-01-06 10:20 | XMS_ITS | CCD ---
Author Organization Unknown Care Team Providers Care Saw Handle Assembler Name Role Phone Relationship Advisor, [place] Primary Care Provider Unava ilable Unavailable Chronic Care Management Unavaila ble Summary Purpose DataExchange Insurance Providers Payer name Policy type / Coverage type Covered constitution party ID Effective Begin Date Effective End Date [facility] Commercial Insurance [id number] Unknown Unkn own Family History Family History data not found Medication Administered No Medication Administered data Medical Equipment No Medical Equipment data Assessments No Assessment data Reason For Visit No Reason For Visit data Review of Systems No Review of Systems data Physical Exam No Physical Exam data History of Present Illness No History of Present Illness data Advance Directives No Advance Directive data
--- OUTSIDE RECORDS SUMMARY | 2025-01-06 11:20 | XMS_ITS | CCD ---
Author Organization Unknown Care Team Providers Care Beet Flumer Name Role Phone [employer] [place], [place] Primary Care Provider Unava ilable Unavailable Chronic Care Management Unavaila ble Summary Purpose DataExchange Insurance Providers Payer name Policy type / Coverage type Covered libertarian ID Effective Begin Date Effective End Date [facility] Commercial Insurance [id number] Unknown Unkn own Family History Family History [...]
--- OUTSIDE RECORDS SUMMARY | 2025-01-06 11:20 | XMS_ITS | CCD ---
Author Organization Unknown Care Team Providers Care Plumber Supervisor Name Role Phone Exhaust Equipment Operator, [place] Primary Care Provider Unava ilable Unavailable Chronic Care Management Unavaila ble Summary Purpose DataExchange Insurance Providers Payer name Policy type / Coverage type Covered alliance party ID Effective Begin Date Effective End Date [facility] Commercial Insurance [id number] Unknown Unkn own Family History Family History [...]
== END 2025-01-06 11:28 | disposition home or self-care (01) ==
PROVIDERS: Emergency Provider Family Medicine
DX: S20.211A Contusion of right front wall of thorax, initial encounter (principal); W18.00XA Striking against unspecified object with subsequent fall, initial encounter
CPT/HCPCS: 71101; 99283; 99284